=== PATIENT | male | born 1940 | race Caucasian/White ===

== ENCOUNTER 2020-08-27 13:44 | Inpatient (IN) | payer MEDICARE, OTHER, SELFPAY ==
[2020-08-27] VITALS (37 sets, daily range): BP systolic 98–170; BP diastolic 43–99; PULSE 24–70; RESP 16–20; TEMP 35.3–36.6; O2SAT 97–100; BMI 24.1
--- NOTE | 2020-08-27 | XR_ITS ---
EXAMINATION: XR CHEST CLINICAL INFORMATION: Pacemaker placement COMPARISON: Chest x-ray earlier today at 4:25 PM TECHNIQUE: Frontal view of the chest was obtained. FINDINGS: Stable cardiac silhouette. Interval insertion of dual lead pacemaker with leads in expected orientation. No pneumothorax is present. Endotracheal tube in stable position terminating approximately 6 cm above the level of the [place]. Enteric tube terminates below the level of the diaphragm and beyond the parameters of today's chest x-ray. The lungs remain adequately aerated. There is similar patchy opacity of the right lung base and blunting of the left costophrenic angle which likely represents a combination of scarring and possibly a small amount of pleural fluid. XR/XR chest 1V IMPRESSION: No pneumothorax status post pacemaker placement.
[2020-08-27] MEDS: LORazepam 2 MG/ML VIAL IM (14:00)
--- NOTE | 2020-08-27 14:02 | CT_ITS ---
EXAMINATION: CT HEAD WITHOUT CONTRAST CLINICAL INFORMATION: Altered mental status COMPARISON: None TECHNIQUE: Contiguous axial imaging was performed from the skull base to vertex without intravenous administration of contrast. Coronal and sagittal reformatted images are performed at the CT scanner This CT examination was performed using dose optimization techniques as appropriate, variously including the following: *Automated exposure control *Adjustment of mA and/or kV according to patient size (this includes techniques or standardized protocols for targeted exams where dose is matched to indication/reason for exam; i.e. extremities or head) *Use of iterative reconstruction technique DLP: 807.3 mGy-cm FINDINGS: There is no evidence of acute intracranial hemorrhage or territorial infarction. No abnormal mass effect or midline shift is seen. Swann to white matter differentiation is well preserved. No extra-axial fluid collections are identified. There is atrophy with prominence of the ventricles and the sulci and hypodensity of the periventricular white matter due to chronic small vessel ischemic disease. There are vascular calcifications of the internal carotid arteries bilaterally. The osseous structures and soft tissues are normal. The mastoid air cells and visualized portions of the paranasal sinuses are well aerated. CT/CT head/brain wo con IMPRESSION: No acute intracranial pathology.
--- NOTE | 2020-08-27 14:08 | CT_ITS ---
EXAMINATION: CT ANGIOGRAM OF THE CHEST WITH AND WITHOUT CONTRAST (CT PULMONARY ANGIOGRAM FOR PE) CLINICAL INFORMATION: Reason for Exam PE. Aortic dissection COMPARISON: None TECHNIQUE: Prior to contrast administration, noncontrast localization images were obtained. Subsequently, multidetector volumetric imaging was performed from the thoracic inlet to below the diaphragms following the administration of 65 mLOmnipaque 350 intravenous contrast. No contrast reaction reported Sagittal, coronal, and MIP oblique sagittal reformatted images were obtained on the CT workstation, uploaded to PACS, and reviewed. This CT examination was performed using dose optimization techniques as appropriate, variously including the following: *Automated exposure control *Adjustment of mA and/or kV according to patient size (this includes techniques or standardized protocols for targeted exams where dose is matched to indication/reason for exam; i.e. extremities or head) *Use of iterative reconstruction technique Total exam dose-length product 523.35+9.92+1.42+3.21 mGy-cm FINDINGS: QUALITY OF STUDY/CONTRAST BOLUS: Satisfactory. PULMONARY ARTERIES: No central or segmental pulmonary emboli. THORACIC AORTA: No aneurysm or dissection. Small volume of calcification of the aortic arch LUNG: There is marked emphysematous change of lungs.. There is no focal consolidation. Lung nodules: Right lun. Lobulated pleural-based mass in the right lower lobe measuring 2.3 cm axial image 33 series 18, coronal image 85 series 20. Left lun. Irregular spiculated nodule in the left upper lobe with pleural tag measuring 1.7 x 1.2 x 1.5 cm. There are small central airspace opacities in this lesion. PLEURA: No pleural effusion or pneumothorax. MEDIASTINUM: Normal heart size. No pericardial effusion. No hilar or mediastinal lymphadenopathy. No evidence of septal bowing or right heart strain. CHEST WALL/AXILLA: No axillary or internal mammary lymphadenopathy. OSSEOUS STRUCTURES: Multilevel degenerative spondylosis spine. Kyphosis of dorsal spine with dextroscoliosis. UPPER ABDOMEN: Unremarkable. The adrenal glands are normal. No reflux of contrast into the hepatic veins to suggest elevated right heart pressures. CT/CT angio chest PE protocol IMPRESSION: 1. No evidence of pulmonary embolism. 2. Severe emphysematous change of lungs. 3. There are 2 irregular lesions. There is a solid masslike lesion in the right lower lobe measuring 2.3 cm. There is an irregular pleural-based nodule in the left upper lobe measuring 1.7 cm. These are suspicious for neoplasm. Consider interventional radiology consult to evaluate for biopsy. VTE: negative. This critical result was discussed with Dr. Hogue on 08/27/2020, 3:33 PM and it was ascertained that the content and urgency of the report was understood at the time of direct communication.
[2020-08-27] MEDS: Ketamine HCl/NS 50 MG/5 ML SYRINGE 25 MG IVPUSH (14:10)
--- NOTE | 2020-08-27 14:10 | ED_ITS ---
HPI - Syncope General Chief Complaint: Arrhythmia/Palpitations <Chyna Hogue DO - Last Filed: 08/27/20 17:05> Stated Complaint: SYNCOPE <Chyna Hogue DO - Last Filed: 08/27/20 17:05> Time Seen by Provider: 08/27/20 13:56 <Chyna Hogue DO - Last Filed: 08/27/20 17:05> Source: family and EMS <Chyna Hogue DO - Last Filed: 08/27/20 17:05> Mode of arrival: EMS <Chyna Hogue DO - Last Filed: 08/27/20 17:05> Limitations: altered mental status <Chyna Hogue DO - Last Filed: 08/27/20 17:05> History of Present Illness MD complaint: loss of consciousness and collapsed <Chyna Hogue DO - Last Filed: 08/27/20 17:05> Onset (ago): minute(s) <Chyna Hogue DO - Last Filed: 08/27/20 17:05> Duration of episode: 5 <Chyna Hogue DO - Last Filed: 08/27/20 17:05> -: minutes(s) <Chyna Hogue DO - Last Filed: 08/27/20 17:05> Description of event: post-event confusion and other (witnessed LOC and syncopal event, found to be in complete heart block) <Chyna Hogue DO - Last Filed: 08/27/20 17:05> Prodromal symptoms: none <Chyna Hogue DO - Last Filed: 08/27/20 17:05> Witnessed: Yes - by Bystander <Chyna Hgoue DO - Last Filed: 08/27/20 17:05> Context: at rest <Chyna Hogue DO - Last Filed: 08/27/20 17:05> Injuries sustained associated with event: none <Chyna Hogue DO - Last Filed: 08/27/20 17:05> Current symptoms: other (agitated, confused, aggressive) <Chyna Hogue DO - Last Filed: 08/27/20 17:05> Treatments prior to arrival: IV fluids <Chyna Hogue DO - Last Filed: 08/27/20 17:05> Related Data Home Medications: Home Medications Medication Instructions Recorded Confirmed No Known Home Meds 08/27/20 08/27/20 <Chyna Hogue DO - Last Filed: 08/27/20 17:05> Allergies/Adverse Reactions: Allergies Allergy/AdvReac Type Severity Reaction Status Date / Time No Known Allergies Allergy Verified 08/27/20 13:56 <Chyna Hogue DO - Last Filed: 08/27/20 17:05> Review of Systems Review of Systems: ROS unable to be obtained due to altered mental status <Chyna Hogue DO - Last Filed: 08/27/20 17:05> [facility] Past Medical History Attestation statement: The following information was validated with the patient. <Chyna Hogue DO - Last Filed: 08/27/20 17:05> Medical History: Medical History No known problems <Chyna Hogue DO - Last Filed: 08/27/20 17:05> Social History Social History: Social History (Updated 08/27/20 @ 14:20 by Chyna Hogue DO) Alcohol intake: never Smoking Status: Never smoker Use of substances other than those prescribed or required for medical reasons: No Advance Directives: No Advance Directives Information Provided: Yes <Chyna Hogue DO - Last Filed: 08/27/20 17:05> Physical Exam Vital Signs: Vital Signs: Vital Signs Temp Pulse Resp BP Pulse Ox 08/27/20 16:54 95.5 F L 38 L 18 121/80 100 08/27/20 16:49 62 119/99 H 100 08/27/20 16:39 70 20 98/67 100 08/27/20 16:05 28 L 104/74 100 08/27/20 15:52 26 L 18 116/53 L 100 08/27/20 15:51 28 L 20 106/43 L 99 08/27/20 14:54 35 L 20 129/79 98 08/27/20 14:52 98 F 36 L 16 170/74 H 99 08/27/20 14:45 34 L 129/79 99 08/27/20 14:40 36 L 20 124/71 98 08/27/20 14:30 36 L 20 124/71 99 08/27/20 14:15 42 L 162/94 H 99 08/27/20 14:00 35 L 142/98 H 98 Body Mass Index 24.1 <Chyna Hogue DO - Last Filed: 08/27/20 17:05> Vital Signs: Vital Signs Temp Pulse Resp BP Pulse Ox 08/27/20 16:54 95.5 F L 38 L 18 121/80 100 08/27/20 16:49 62 119/99 H 100 08/27/20 16:39 70 20 98/67 100 08/27/20 16:05 28 L 104/74 100 08/27/20 15:52 26 L 18 116/53 L 100 08/27/20 15:51 28 L 20 106/43 L 99 08/27/20 14:54 35 L 20 129/79 98 08/27/20 14:52 98 F 36 L 16 170/74 H 99 08/27/20 14:45 34 L 129/79 99 08/27/20 14:40 36 L 20 124/71 98 08/27/20 14:30 36 L 20 124/71 99 08/27/20 14:15 42 L 162/94 H 99 08/27/20 14:00 35 L 142/98 H 98 Body Mass Index 24.1 <Lokesh Zamora MD - Last Filed: 08/27/20 14:30> Appearance: Somnolent Oriented X1. moderate acute distress Eyes: Pupils equal, round and reactive to light. ENT: Pharynx dry Neck: Normal inspection. Neck supple. CVS: bradycardic heart rate and rhythm. Pulses normal. Respiratory: No respiratory distress. Breath sounds normal. Abdomen: Soft and nontender. Skin: Skin cool and pale. diaphoretic Normal skin turgor. Extremities: No lower extremity edema. No calf ttp Neuro: Oriented X 1 moving all extremities equally <Chyna Hogue DO - Last Filed: 08/27/20 17:05> Course Course Course Narrative: Dr. 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 Nails at this time - will admit after OR Dr. Zamora - at bedside can hold off transvenous pacing, can go to OR, is now more stable BP steinberg <Chyna Hogue DO - Last Filed: 08/27/20 17:05> Procedures Intubation sedative: Ketamine <Chyna Hogue DO - Last Filed: 08/27/20 17:05> Mg Given: 100 <Chyna Hogue DO - Last Filed: 08/27/20 17:05> paralytic: Rocuronium <Chyna Hogue DO - Last Filed: 08/27/20 17:05> Mg Given: 50 <Chyna Hogue DO - Last Filed: 08/27/20 17:05> Laryngoscope: fiber optic video scope <Chyna Hogue DO - Last Filed: 08/27/20 17:05> ET Tube Size: 7.5 <Chyna Hogue DO - Last Filed: 08/27/20 17:05> ET Tube Uncuffed: Yes <Chyna Hogue DO - Last Filed: 08/27/20 17:05> Tube Secured Depth (cm): 22 <Chyna Hogue DO - Last Filed: 08/27/20 17:05> Tube Secured Location: teeth <Chyna Hogue DO - Last Filed: 08/27/20 17:05> Tube Placement Confirmation: visualized tube passing through cords, equal breath sounds bilaterally and confirmation by capnometry <Chyna Hogue DO - Last Filed: 08/27/20 17:05> Patient Tolerated Procedure: well <Chyna Hogue DO - Last Filed: 08/27/20 17:05> Intubation Complications: none <Chyna Hogue DO - Last Filed: 08/27/20 17:05> MDM - Syncope MDM Narrative Medical decision making narrative: 80 yo male who has not gone to the doctors had a syncopal event possible shaking unsure if syncope vs seizure lasted 5 minutes per spouse, will need labs, cardiologoy consult for heart block, CTA for dissection/head - very agitated will need medications for sedation in order to obtain tests, patient is full code per spouse <Chyna Hogue DO - Last Filed: 08/27/20 17:05> Lab Data Result diagrams: : 08/27/20 14:46 08/27/20 14:46 <Chyna Hogue DO - Last Filed: 08/27/20 17:05> Labs: Lab Results 08/27/20 08/27/20 08/27/20 Range/Units 14:45 14:45 14:46 WBC 10.4 (4.8-10.8) X10*3/uL RBC 4.78 (4.60-5.80) X10*6/uL Hgb 14.3 (14.0-18.0) g/dl Hct 45.8 (42-52) % MCV 95.8 (80-98) fL MCH 29.9 (27.0-33.0) pg MCHC 31.2 (31.0-36.0) g/dl RDW 14.3 (11.0-16.0) % Plt Count 136 L (160-400) X10*3/uL MPV TNP Immature Gran % (Auto) 0.3 (0.0-0.4) % Neut % (Auto) 71.4 (45-73) % Lymph % (Auto) 16.5 L (20-40) % [place] % (Auto) 7.7 (2-11) % Eos % (Auto) 3.3 (0-4) % Baso % (Auto) 0.8 (0-2) % Lymph # (Auto) 1.7 (1.2-4.9) X10*3/uL [place] # (Auto) 0.8 (0.1-1.2) X10*3/uL Eos # (Auto) 0.3 (0.0-0.4) X10*3/uL Baso # (Auto) 0.1 (0.0-0.2) X10*3/uL Abs Immat Gran (auto) 0.03 (0.00-0.03) X10*3/uL Absolute Neuts (auto) 7.4 (2.0-8.3) X10*3/uL Absolute Nucleated RBC 0.000 (0.0-0.012) X10*3/uL Nucleated RBC % (auto) 0.0 (0.0-0.2) /100WBC Smear Tech's Comments VERIFIED PT (10.8-13.0) SEC INR (0.9-1.1) APTT (24.1-38.0) SEC VBG pH (7.32-7.43) VBG pCO2 mmhg VBG Oxygen Liters/Min VBG pO2 mmhg VBG HCO3 mmol/L VBG O2 Saturation % VBG Base Excess mmol/L Sodium (135-145) mmol/L Potassium (3.3-5.1) mmol/l Chloride (96-108) mmol/L Carbon Dioxide (22-29) mmol/L Anion Gap (12-20) BUN (9-16) mg/dL Creatinine (0.5-1.4) mg/dL Estim Creat Clear Calc Estimated GFR Random Glucose (60-115) mg/dL Lactic Acid (0.5-2.0) mmol/L Calcium 9.2 (8.4-10.2) mg/dL Magnesium 2.3 (1.6-2.6) mg/dL Total Bilirubin (0.0-1.0) mg/dL AST (5-37) U/L ALT (0-40) U/L Alkaline Phosphatase (39-117) U/L Ammonia (13-55) umol/L Total Creatine Kinase 64 (38-174) U/L Troponin I High Sens (<3.5-35.0) ng/L B-Natriuretic Peptide (<100) pg/mL Total Protein (6.5-8.0) g/dL Albumin (3.5-5.0) g/dL Urine Color Urine Appearance Urine pH (5.0-8.0) Ur Specific [place] (1.005-1.025) Urine Protein (NEG-TRACE) MG/DL Urine Glucose (UA) (NEG) MG/DL Urine Ketones (NEG) MG/DL Urine Blood (NEG) Urine Nitrite (NEG) Ur Leukocyte Esterase (NEG) Urine RBC (0) /HPF Urine WBC (0-4) /HPF Ur Squamous Epith Cells /LPF Urine Bacteria /LPF Urine Opiates Screen (Not Detect) Ur Barbiturates Screen (Not Detect) Ur Phencyclidine Scrn (Not Detect) Ur Amphetamines Screen (Not Detect) U Benzodiazepines Scrn (Not Detect) Urine Cocaine Screen (Not Detect) U Marijuana (THC) Screen (Not Detect) Ethyl Alcohol < 10 mg/dL Coronavirus (PCR) (Negative) 08/27/20 08/27/20 08/27/20 Range/Units 14:46 14:46 14:46 WBC (4.8-10.8) X10*3/uL RBC (4.60-5.80) X10*6/uL Hgb (14.0-18.0) g/dl Hct (42-52) % MCV (80-98) fL MCH (27.0-33.0) pg MCHC (31.0-36.0) g/dl RDW (11.0-16.0) % Plt Count (160-400) X10*3/uL MPV Immature Gran % (Auto) (0.0-0.4) % Neut % (Auto) (45-73) % Lymph % (Auto) (20-40) % [place] % (Auto) (2-11) % Eos % (Auto) (0-4) % Baso % (Auto) (0-2) % Lymph # (Auto) (1.2-4.9) X10*3/uL [place] # (Auto) (0.1-1.2) X10*3/uL Eos # (Auto) (0.0-0.4) X10*3/uL Baso # (Auto) (0.0-0.2) X10*3/uL Abs Immat Gran (auto) (0.00-0.03) X10*3/uL Absolute Neuts (auto) (2.0-8.3) X10*3/uL Absolute Nucleated RBC (0.0-0.012) X10*3/uL Nucleated RBC % (auto) (0.0-0.2) /100WBC Smear Tech's Comments PT 12.3 (10.8-13.0) SEC INR 1.0 (0.9-1.1) APTT 32.5 (24.1-38.0) SEC VBG pH (7.32-7.43) VBG pCO2 mmhg VBG Oxygen Liters/Min VBG pO2 mmhg VBG HCO3 mmol/L VBG O2 Saturation % VBG Base Excess mmol/L Sodium 142 (135-145) mmol/L Potassium 4.0 (3.3-5.1) mmol/l Chloride 104 (96-108) mmol/L Carbon Dioxide 23 (22-29) mmol/L Anion Gap 19 (12-20) BUN 13 (9-16) mg/dL Creatinine 0.99 (0.5-1.4) mg/dL Estim Creat Clear Calc 68.3 Estimated GFR > 60 Random Glucose 138 H (60-115) mg/dL Lactic Acid 5.2 H* (0.5-2.0) mmol/L Calcium 9.1 (8.4-10.2) mg/dL Magnesium (1.6-2.6) mg/dL Total Bilirubin 0.9 (0.0-1.0) mg/dL AST 13 (5-37) U/L ALT 7 (0-40) U/L Alkaline Phosphatase 76 (39-117) U/L Ammonia (13-55) umol/L Total Creatine Kinase (38-174) U/L Troponin I High Sens (<3.5-35.0) ng/L B-Natriuretic Peptide (<100) pg/mL Total Protein 7.0 (6.5-8.0) g/dL Albumin 4.5 (3.5-5.0) g/dL Urine Color Urine Appearance Urine pH (5.0-8.0) Ur Specific [place] (1.005-1.025) Urine Protein (NEG-TRACE) MG/DL Urine Glucose (UA) (NEG) MG/DL Urine Ketones (NEG) MG/DL Urine Blood (NEG) Urine Nitrite (NEG) Ur Leukocyte Esterase (NEG) Urine RBC (0) /HPF Urine WBC (0-4) /HPF Ur Squamous Epith Cells /LPF Urine Bacteria /LPF Urine Opiates Screen (Not Detect) Ur Barbiturates Screen (Not Detect) Ur Phencyclidine Scrn (Not Detect) Ur Amphetamines Screen (Not Detect) U Benzodiazepines Scrn (Not Detect) Urine Cocaine Screen (Not Detect) U Marijuana (THC) Screen (Not Detect) Ethyl Alcohol mg/dL Coronavirus (PCR) (Negative) 08/27/20 08/27/20 08/27/20 Range/Units 15:03 15:03 15:04 WBC (4.8-10.8) X10*3/uL RBC (4.60-5.80) X10*6/uL Hgb (14.0-18.0) g/dl Hct (42-52) % MCV (80-98) fL MCH (27.0-33.0) pg MCHC (31.0-36.0) g/dl RDW (11.0-16.0) % Plt Count (160-400) X10*3/uL MPV Immature Gran % (Auto) (0.0-0.4) % Neut % (Auto) (45-73) % Lymph % (Auto) (20-40) % [place] % (Auto) (2-11) % Eos % (Auto) (0-4) % Baso % (Auto) (0-2) % Lymph # (Auto) (1.2-4.9) X10*3/uL [place] # (Auto) (0.1-1.2) X10*3/uL Eos # (Auto) (0.0-0.4) X10*3/uL Baso # (Auto) (0.0-0.2) X10*3/uL Abs Immat Gran (auto) (0.00-0.03) X10*3/uL Absolute Neuts (auto) (2.0-8.3) X10*3/uL Absolute Nucleated RBC (0.0-0.012) X10*3/uL Nucleated RBC % (auto) (0.0-0.2) /100WBC Smear Tech's Comments PT (10.8-13.0) SEC INR (0.9-1.1) APTT (24.1-38.0) SEC VBG pH (7.32-7.43) VBG pCO2 mmhg VBG Oxygen Liters/Min VBG pO2 mmhg VBG HCO3 mmol/L VBG O2 Saturation % VBG Base Excess mmol/L Sodium (135-145) mmol/L Potassium (3.3-5.1) mmol/l Chloride (96-108) mmol/L Carbon Dioxide (22-29) mmol/L Anion Gap (12-20) BUN (9-16) mg/dL Creatinine (0.5-1.4) mg/dL Estim Creat Clear Calc Estimated GFR Random Glucose (60-115) mg/dL Lactic Acid (0.5-2.0) mmol/L Calcium (8.4-10.2) mg/dL Magnesium (1.6-2.6) mg/dL Total Bilirubin (0.0-1.0) mg/dL AST (5-37) U/L ALT (0-40) U/L Alkaline Phosphatase (39-117) U/L Ammonia 35 (13-55) umol/L Total Creatine Kinase (38-174) U/L Troponin I High Sens 29.3 (<3.5-35.0) ng/L B-Natriuretic Peptide 244 H (<100) pg/mL Total Protein (6.5-8.0) g/dL Albumin (3.5-5.0) g/dL Urine Color Urine Appearance Urine pH (5.0-8.0) Ur Specific [place] (1.005-1.025) Urine Protein (NEG-TRACE) MG/DL Urine Glucose (UA) (NEG) MG/DL Urine Ketones (NEG) MG/DL Urine Blood (NEG) Urine Nitrite (NEG) Ur Leukocyte Esterase (NEG) Urine RBC (0) /HPF Urine WBC (0-4) /HPF Ur Squamous Epith Cells /LPF Urine Bacteria /LPF Urine Opiates Screen (Not Detect) Ur Barbiturates Screen (Not Detect) Ur Phencyclidine Scrn (Not Detect) Ur Amphetamines Screen (Not Detect) U Benzodiazepines Scrn (Not Detect) Urine Cocaine Screen (Not Detect) U Marijuana (THC) Screen (Not Detect) Ethyl Alcohol mg/dL Coronavirus (PCR) (Negative) 08/27/20 08/27/20 08/27/20 Range/Units 15:14 15:14 15:14 WBC (4.8-10.8) X10*3/uL RBC (4.60-5.80) X10*6/uL Hgb (14.0-18.0) g/dl Hct (42-52) % MCV (80-98) fL MCH (27.0-33.0) pg MCHC (31.0-36.0) g/dl RDW (11.0-16.0) % Plt Count (160-400) X10*3/uL MPV Immature Gran % (Auto) (0.0-0.4) % Neut % (Auto) (45-73) % Lymph % (Auto) (20-40) % [place] % (Auto) (2-11) % Eos % (Auto) (0-4) % Baso % (Auto) (0-2) % Lymph # (Auto) (1.2-4.9) X10*3/uL [place] # (Auto) (0.1-1.2) X10*3/uL Eos # (Auto) (0.0-0.4) X10*3/uL Baso # (Auto) (0.0-0.2) X10*3/uL Abs Immat Gran (auto) (0.00-0.03) X10*3/uL Absolute Neuts (auto) (2.0-8.3) X10*3/uL Absolute Nucleated RBC (0.0-0.012) X10*3/uL Nucleated RBC % (auto) (0.0-0.2) /100WBC Smear Tech's Comments PT (10.8-13.0) SEC INR (0.9-1.1) APTT (24.1-38.0) SEC VBG pH (7.32-7.43) VBG pCO2 mmhg VBG Oxygen Liters/Min VBG pO2 mmhg VBG HCO3 mmol/L VBG O2 Saturation % VBG Base Excess mmol/L Sodium (135-145) mmol/L Potassium (3.3-5.1) mmol/l Chloride (96-108) mmol/L Carbon Dioxide (22-29) mmol/L Anion Gap (12-20) BUN (9-16) mg/dL Creatinine (0.5-1.4) mg/dL Estim Creat Clear Calc Estimated GFR Random Glucose (60-115) mg/dL Lactic Acid (0.5-2.0) mmol/L Calcium (8.4-10.2) mg/dL Magnesium (1.6-2.6) mg/dL Total Bilirubin (0.0-1.0) mg/dL AST (5-37) U/L ALT (0-40) U/L Alkaline Phosphatase (39-117) U/L Ammonia (13-55) umol/L Total Creatine Kinase (38-174) U/L Troponin I High Sens (<3.5-35.0) ng/L B-Natriuretic Peptide (<100) pg/mL Total Protein (6.5-8.0) g/dL Albumin (3.5-5.0) g/dL Urine Color YELLOW Urine Appearance CLEAR Urine pH 6.0 (5.0-8.0) Ur Specific [place] 1.020 (1.005-1.025) Urine Protein NEG (NEG-TRACE) MG/DL Urine Glucose (UA) NEG (NEG) MG/DL Urine Ketones NEG (NEG) MG/DL Urine Blood 3+ H (NEG) Urine Nitrite NEG (NEG) Ur Leukocyte Esterase NEG (NEG) Urine RBC 30-49 H (0) /HPF Urine WBC 0 (0-4) /HPF Ur Squamous Epith Cells NONE /LPF Urine Bacteria NONE /LPF Urine Opiates Screen Not Detected (Not Detect) Ur Barbiturates Screen Not Detected (Not Detect) Ur Phencyclidine Scrn Not Detected (Not Detect) Ur Amphetamines Screen Not Detected (Not Detect) U Benzodiazepines Scrn Not Detected (Not Detect) Urine Cocaine Screen Not Detected (Not Detect) U Marijuana (THC) Screen Not Detected (Not Detect) Ethyl Alcohol mg/dL Coronavirus (PCR) NEGATIVE (Negative) 08/27/20 Range/Units 15:26 WBC (4.8-10.8) X10*3/uL RBC (4.60-5.80) X10*6/uL Hgb (14.0-18.0) g/dl Hct (42-52) % MCV (80-98) fL MCH (27.0-33.0) pg MCHC (31.0-36.0) g/dl RDW (11.0-16.0) % Plt Count (160-400) X10*3/uL MPV Immature Gran % (Auto) (0.0-0.4) % Neut % (Auto) (45-73) % Lymph % (Auto) (20-40) % [place] % (Auto) (2-11) % Eos % (Auto) (0-4) % Baso % (Auto) (0-2) % Lymph # (Auto) (1.2-4.9) X10*3/uL [place] # (Auto) (0.1-1.2) X10*3/uL Eos # (Auto) (0.0-0.4) X10*3/uL Baso # (Auto) (0.0-0.2) X10*3/uL Abs Immat Gran (auto) (0.00-0.03) X10*3/uL Absolute Neuts (auto) (2.0-8.3) X10*3/uL Absolute Nucleated RBC (0.0-0.012) X10*3/uL Nucleated RBC % (auto) (0.0-0.2) /100WBC Smear Tech's Comments PT (10.8-13.0) SEC INR (0.9-1.1) APTT (24.1-38.0) SEC VBG pH 7.35 (7.32-7.43) VBG pCO2 44 mmhg VBG Oxygen Liters/Min TNP VBG pO2 91 mmhg VBG HCO3 24 mmol/L VBG O2 Saturation 96.6 % VBG Base Excess -2.2 mmol/L Sodium (135-145) mmol/L Potassium (3.3-5.1) mmol/l Chloride (96-108) mmol/L Carbon Dioxide (22-29) mmol/L Anion Gap (12-20) BUN (9-16) mg/dL Creatinine (0.5-1.4) mg/dL Estim Creat Clear Calc Estimated GFR Random Glucose (60-115) mg/dL Lactic Acid (0.5-2.0) mmol/L Calcium (8.4-10.2) mg/dL Magnesium (1.6-2.6) mg/dL Total Bilirubin (0.0-1.0) mg/dL AST (5-37) U/L ALT (0-40) U/L Alkaline Phosphatase (39-117) U/L Ammonia (13-55) umol/L Total Creatine Kinase (38-174) U/L Troponin I High Sens (<3.5-35.0) ng/L B-Natriuretic Peptide (<100) pg/mL Total Protein (6.5-8.0) g/dL Albumin (3.5-5.0) g/dL Urine Color Urine Appearance Urine pH (5.0-8.0) Ur Specific [place] (1.005-1.025) Urine Protein (NEG-TRACE) MG/DL Urine Glucose (UA) (NEG) MG/DL Urine Ketones (NEG) MG/DL Urine Blood (NEG) Urine Nitrite (NEG) Ur Leukocyte Esterase (NEG) Urine RBC (0) /HPF Urine WBC (0-4) /HPF Ur Squamous Epith Cells /LPF Urine Bacteria /LPF Urine Opiates Screen (Not Detect) Ur Barbiturates Screen (Not Detect) Ur Phencyclidine Scrn (Not Detect) Ur Amphetamines Screen (Not Detect) U Benzodiazepines Scrn (Not Detect) Urine Cocaine Screen (Not Detect) U Marijuana (THC) Screen (Not Detect) Ethyl Alcohol mg/dL Coronavirus (PCR) (Negative) <Chyna Hogue, DO - Last Filed: 08/27/20 17:05> Lab Results 08/27/20 08/27/20 08/27/20 Range/Units 14:45 14:45 14:46 WBC 10.4 (4.8-10.8) X10*3/uL RBC 4.78 (4.60-5.80) X10*6/uL Hgb 14.3 (14.0-18.0) g/dl Hct 45.8 (42-52) % MCV 95.8 (80-98) fL MCH 29.9 (27.0-33.0) pg MCHC 31.2 (31.0-36.0) g/dl RDW 14.3 (11.0-16.0) % Plt Count 136 L (160-400) X10*3/uL MPV TNP Immature Gran % (Auto) 0.3 (0.0-0.4) % Neut % (Auto) 71.4 (45-73) % Lymph % (Auto) 16.5 L (20-40) % [place] % (Auto) 7.7 (2-11) % Eos % (Auto) 3.3 (0-4) % Baso % (Auto) 0.8 (0-2) % Lymph # (Auto) 1.7 (1.2-4.9) X10*3/uL [place] # (Auto) 0.8 (0.1-1.2) X10*3/uL Eos # (Auto) 0.3 (0.0-0.4) X10*3/uL Baso # (Auto) 0.1 (0.0-0.2) X10*3/uL Abs Immat Gran (auto) 0.03 (0.00-0.03) X10*3/uL Absolute Neuts (auto) 7.4 (2.0-8.3) X10*3/uL Absolute Nucleated RBC 0.000 (0.0-0.012) X10*3/uL Nucleated RBC % (auto) 0.0 (0.0-0.2) /100WBC Smear Tech's Comments VERIFIED PT (10.8-13.0) SEC INR (0.9-1.1) APTT (24.1-38.0) SEC VBG pH (7.32-7.43) VBG pCO2 mmhg VBG Oxygen Liters/Min VBG pO2 mmhg VBG HCO3 mmol/L VBG O2 Saturation % VBG Base Excess mmol/L Sodium (135-145) mmol/L Potassium (3.3-5.1) mmol/l Chloride (96-108) mmol/L Carbon Dioxide (22-29) mmol/L Anion Gap (12-20) BUN (9-16) mg/dL Creatinine (0.5-1.4) mg/dL Estim Creat Clear Calc Estimated GFR Random Glucose (60-115) mg/dL Lactic Acid (0.5-2.0) mmol/L Calcium 9.2 (8.4-10.2) mg/dL Magnesium 2.3 (1.6-2.6) mg/dL Total Bilirubin (0.0-1.0) mg/dL AST (5-37) U/L ALT (0-40) U/L Alkaline Phosphatase (39-117) U/L Ammonia (13-55) umol/L Total Creatine Kinase 64 (38-174) U/L Troponin I High Sens (<3.5-35.0) ng/L B-Natriuretic Peptide (<100) pg/mL Total Protein (6.5-8.0) g/dL Albumin (3.5-5.0) g/dL Urine Color Urine Appearance Urine pH (5.0-8.0) Ur Specific [place] (1.005-1.025) Urine Protein (NEG-TRACE) MG/DL Urine Glucose (UA) (NEG) MG/DL Urine Ketones (NEG) MG/DL Urine Blood (NEG) Urine Nitrite (NEG) Ur Leukocyte Esterase (NEG) Urine RBC (0) /HPF Urine WBC (0-4) /HPF Ur Squamous Epith Cells /LPF Urine Bacteria /LPF Urine Opiates Screen (Not Detect) Ur Barbiturates Screen (Not Detect) Ur Phencyclidine Scrn (Not Detect) Ur Amphetamines Screen (Not Detect) U Benzodiazepines Scrn (Not Detect) Urine Cocaine Screen (Not Detect) U Marijuana (THC) Screen (Not Detect) Ethyl Alcohol < 10 mg/dL Coronavirus (PCR) (Negative) 08/27/20 08/27/20 08/27/20 Range/Units 14:46 14:46 14:46 WBC (4.8-10.8) X10*3/uL RBC (4.60-5.80) X10*6/uL Hgb (14.0-18.0) g/dl Hct (42-52) % MCV (80-98) fL MCH (27.0-33.0) pg MCHC (31.0-36.0) g/dl RDW (11.0-16.0) % Plt Count (160-400) X10*3/uL MPV Immature Gran % (Auto) (0.0-0.4) % Neut % (Auto) (45-73) % Lymph % (Auto) (20-40) % [place] % (Auto) (2-11) % Eos % (Auto) (0-4) % Baso % (Auto) (0-2) % Lymph # (Auto) (1.2-4.9) X10*3/uL [place] # (Auto) (0.1-1.2) X10*3/uL Eos # (Auto) (0.0-0.4) X10*3/uL Baso # (Auto) (0.0-0.2) X10*3/uL Abs Immat Gran (auto) (0.00-0.03) X10*3/uL Absolute Neuts (auto) (2.0-8.3) X10*3/uL Absolute Nucleated RBC (0.0-0.012) X10*3/uL Nucleated RBC % (auto) (0.0-0.2) /100WBC Smear Tech's Comments PT 12.3 (10.8-13.0) SEC INR 1.0 (0.9-1.1) APTT 32.5 (24.1-38.0) SEC VBG pH (7.32-7.43) VBG pCO2 mmhg VBG Oxygen Liters/Min VBG pO2 mmhg VBG HCO3 mmol/L VBG O2 Saturation % VBG Base Excess mmol/L Sodium 142 (135-145) mmol/L Potassium 4.0 (3.3-5.1) mmol/l Chloride 104 (96-108) mmol/L Carbon Dioxide 23 (22-29) mmol/L Anion Gap 19 (12-20) BUN 13 (9-16) mg/dL Creatinine 0.99 (0.5-1.4) mg/dL Estim Creat Clear Calc 68.3 Estimated GFR > 60 Random Glucose 138 H (60-115) mg/dL Lactic Acid 5.2 H* (0.5-2.0) mmol/L Calcium 9.1 (8.4-10.2) mg/dL Magnesium (1.6-2.6) mg/dL Total Bilirubin 0.9 (0.0-1.0) mg/dL AST 13 (5-37) U/L ALT 7 (0-40) U/L Alkaline Phosphatase 76 (39-117) U/L Ammonia (13-55) umol/L Total Creatine Kinase (38-174) U/L Troponin I High Sens (<3.5-35.0) ng/L B-Natriuretic Peptide (<100) pg/mL Total Protein 7.0 (6.5-8.0) g/dL Albumin 4.5 (3.5-5.0) g/dL Urine Color Urine Appearance Urine pH (5.0-8.0) Ur Specific [place] (1.005-1.025) Urine Protein (NEG-TRACE) MG/DL Urine Glucose (UA) (NEG) MG/DL Urine Ketones (NEG) MG/DL Urine Blood (NEG) Urine Nitrite (NEG) Ur Leukocyte Esterase (NEG) Urine RBC (0) /HPF Urine WBC (0-4) /HPF Ur Squamous Epith Cells /LPF Urine Bacteria /LPF Urine Opiates Screen (Not Detect) Ur Barbiturates Screen (Not Detect) Ur Phencyclidine Scrn (Not Detect) Ur Amphetamines Screen (Not Detect) U Benzodiazepines Scrn (Not Detect) Urine Cocaine Screen (Not Detect) U Marijuana (THC) Screen (Not Detect) Ethyl Alcohol mg/dL Coronavirus (PCR) (Negative) 08/27/20 08/27/20 08/27/20 Range/Units 15:03 15:03 15:04 WBC (4.8-10.8) X10*3/uL RBC (4.60-5.80) X10*6/uL Hgb (14.0-18.0) g/dl Hct (42-52) % MCV (80-98) fL MCH (27.0-33.0) pg MCHC (31.0-36.0) g/dl RDW (11.0-16.0) % Plt Count (160-400) X10*3/uL MPV Immature Gran % (Auto) (0.0-0.4) % Neut % (Auto) (45-73) % Lymph % (Auto) (20-40) % [place] % (Auto) (2-11) % Eos % (Auto) (0-4) % Baso % (Auto) (0-2) % Lymph # (Auto) (1.2-4.9) X10*3/uL [place] # (Auto) (0.1-1.2) X10*3/uL Eos # (Auto) (0.0-0.4) X10*3/uL Baso # (Auto) (0.0-0.2) X10*3/uL Abs Immat Gran (auto) (0.00-0.03) X10*3/uL Absolute Neuts (auto) (2.0-8.3) X10*3/uL Absolute Nucleated RBC (0.0-0.012) X10*3/uL Nucleated RBC % (auto) (0.0-0.2) /100WBC Smear Tech's Comments PT (10.8-13.0) SEC INR (0.9-1.1) APTT (24.1-38.0) SEC VBG pH (7.32-7.43) VBG pCO2 mmhg VBG Oxygen Liters/Min VBG pO2 mmhg VBG HCO3 mmol/L VBG O2 Saturation % VBG Base Excess mmol/L Sodium (135-145) mmol/L Potassium (3.3-5.1) mmol/l Chloride (96-108) mmol/L Carbon Dioxide (22-29) mmol/L Anion Gap (12-20) BUN (9-16) mg/dL Creatinine (0.5-1.4) mg/dL Estim Creat Clear Calc Estimated GFR Random Glucose (60-115) mg/dL Lactic Acid (0.5-2.0) mmol/L Calcium (8.4-10.2) mg/dL Magnesium (1.6-2.6) mg/dL Total Bilirubin (0.0-1.0) mg/dL AST (5-37) U/L ALT (0-40) U/L Alkaline Phosphatase (39-117) U/L Ammonia 35 (13-55) umol/L Total Creatine Kinase (38-174) U/L Troponin I High Sens 29.3 (<3.5-35.0) ng/L B-Natriuretic Peptide 244 H (<100) pg/mL Total Protein (6.5-8.0) g/dL Albumin (3.5-5.0) g/dL Urine Color Urine Appearance Urine pH (5.0-8.0) Ur Specific [place] (1.005-1.025) Urine Protein (NEG-TRACE) MG/DL Urine Glucose (UA) (NEG) MG/DL Urine Ketones (NEG) MG/DL Urine Blood (NEG) Urine Nitrite (NEG) Ur Leukocyte Esterase (NEG) Urine RBC (0) /HPF Urine WBC (0-4) /HPF Ur Squamous Epith Cells /LPF Urine Bacteria /LPF Urine Opiates Screen (Not Detect) Ur Barbiturates Screen (Not Detect) Ur Phencyclidine Scrn (Not Detect) Ur Amphetamines Screen (Not Detect) U Benzodiazepines Scrn (Not Detect) Urine Cocaine Screen (Not Detect) U Marijuana (THC) Screen (Not Detect) Ethyl Alcohol mg/dL Coronavirus (PCR) (Negative) 08/27/20 08/27/20 08/27/20 Range/Units 15:14 15:14 15:14 WBC (4.8-10.8) X10*3/uL RBC (4.60-5.80) X10*6/uL Hgb (14.0-18.0) g/dl Hct (42-52) % MCV (80-98) fL MCH (27.0-33.0) pg MCHC (31.0-36.0) g/dl RDW (11.0-16.0) % Plt Count (160-400) X10*3/uL MPV Immature Gran % (Auto) (0.0-0.4) % Neut % (Auto) (45-73) % Lymph % (Auto) (20-40) % [place] % (Auto) (2-11) % Eos % (Auto) (0-4) % Baso % (Auto) (0-2) % Lymph # (Auto) (1.2-4.9) X10*3/uL [place] # (Auto) (0.1-1.2) X10*3/uL Eos # (Auto) (0.0-0.4) X10*3/uL Baso # (Auto) (0.0-0.2) X10*3/uL Abs Immat Gran (auto) (0.00-0.03) X10*3/uL Absolute Neuts (auto) (2.0-8.3) X10*3/uL Absolute Nucleated RBC (0.0-0.012) X10*3/uL Nucleated RBC % (auto) (0.0-0.2) /100WBC Smear Tech's Comments PT (10.8-13.0) SEC INR (0.9-1.1) APTT (24.1-38.0) SEC VBG pH (7.32-7.43) VBG pCO2 mmhg VBG Oxygen Liters/Min VBG pO2 mmhg VBG HCO3 mmol/L VBG O2 Saturation % VBG Base Excess mmol/L Sodium (135-145) mmol/L Potassium (3.3-5.1) mmol/l Chloride (96-108) mmol/L Carbon Dioxide (22-29) mmol/L Anion Gap (12-20) BUN (9-16) mg/dL Creatinine (0.5-1.4) mg/dL Estim Creat Clear Calc Estimated GFR Random Glucose (60-115) mg/dL Lactic Acid (0.5-2.0) mmol/L Calcium (8.4-10.2) mg/dL Magnesium (1.6-2.6) mg/dL Total Bilirubin (0.0-1.0) mg/dL AST (5-37) U/L ALT (0-40) U/L Alkaline Phosphatase (39-117) U/L Ammonia (13-55) umol/L Total Creatine Kinase (38-174) U/L Troponin I High Sens (<3.5-35.0) ng/L B-Natriuretic Peptide (<100) pg/mL Total Protein (6.5-8.0) g/dL Albumin (3.5-5.0) g/dL Urine Color YELLOW Urine Appearance CLEAR Urine pH 6.0 (5.0-8.0) Ur Specific [place] 1.020 (1.005-1.025) Urine Protein NEG (NEG-TRACE) MG/DL Urine Glucose (UA) NEG (NEG) MG/DL Urine Ketones NEG (NEG) MG/DL Urine Blood 3+ H (NEG) Urine Nitrite NEG (NEG) Ur Leukocyte Esterase NEG (NEG) Urine RBC 30-49 H (0) /HPF Urine WBC 0 (0-4) /HPF Ur Squamous Epith Cells NONE /LPF Urine Bacteria NONE /LPF Urine Opiates Screen Not Detected (Not Detect) Ur Barbiturates Screen Not Detected (Not Detect) Ur Phencyclidine Scrn Not Detected (Not Detect) Ur Amphetamines Screen Not Detected (Not Detect) U Benzodiazepines Scrn Not Detected (Not Detect) Urine Cocaine Screen Not Detected (Not Detect) U Marijuana (THC) Screen Not Detected (Not Detect) Ethyl Alcohol mg/dL Coronavirus (PCR) NEGATIVE (Negative) 08/27/20 Range/Units 15:26 WBC (4.8-10.8) X10*3/uL RBC (4.60-5.80) X10*6/uL Hgb (14.0-18.0) g/dl Hct (42-52) % MCV (80-98) fL MCH (27.0-33.0) pg MCHC (31.0-36.0) g/dl RDW (11.0-16.0) % Plt Count (160-400) X10*3/uL MPV Immature Gran % (Auto) (0.0-0.4) % Neut % (Auto) (45-73) % Lymph % (Auto) (20-40) % [place] % (Auto) (2-11) % Eos % (Auto) (0-4) % Baso % (Auto) (0-2) % Lymph # (Auto) (1.2-4.9) X10*3/uL [place] # (Auto) (0.1-1.2) X10*3/uL Eos # (Auto) (0.0-0.4) X10*3/uL Baso # (Auto) (0.0-0.2) X10*3/uL Abs Immat Gran (auto) (0.00-0.03) X10*3/uL Absolute Neuts (auto) (2.0-8.3) X10*3/uL Absolute Nucleated RBC (0.0-0.012) X10*3/uL Nucleated RBC % (auto) (0.0-0.2) /100WBC Smear Tech's Comments PT (10.8-13.0) SEC INR (0.9-1.1) APTT (24.1-38.0) SEC VBG pH 7.35 (7.32-7.43) VBG pCO2 44 mmhg VBG Oxygen Liters/Min TNP VBG pO2 91 mmhg VBG HCO3 24 mmol/L VBG O2 Saturation 96.6 % VBG Base Excess -2.2 mmol/L Sodium (135-145) mmol/L Potassium (3.3-5.1) mmol/l Chloride (96-108) mmol/L Carbon Dioxide (22-29) mmol/L Anion Gap (12-20) BUN (9-16) mg/dL Creatinine (0.5-1.4) mg/dL Estim Creat Clear Calc Estimated GFR Random Glucose (60-115) mg/dL Lactic Acid (0.5-2.0) mmol/L Calcium (8.4-10.2) mg/dL Magnesium (1.6-2.6) mg/dL Total Bilirubin (0.0-1.0) mg/dL AST (5-37) U/L ALT (0-40) U/L Alkaline Phosphatase (39-117) U/L Ammonia (13-55) umol/L Total Creatine Kinase (38-174) U/L Troponin I High Sens (<3.5-35.0) ng/L B-Natriuretic Peptide (<100) pg/mL Total Protein (6.5-8.0) g/dL Albumin (3.5-5.0) g/dL Urine Color Urine Appearance Urine pH (5.0-8.0) Ur Specific [place] (1.005-1.025) Urine Protein (NEG-TRACE) MG/DL Urine Glucose (UA) (NEG) MG/DL Urine Ketones (NEG) MG/DL Urine Blood (NEG) Urine Nitrite (NEG) Ur Leukocyte Esterase (NEG) Urine RBC (0) /HPF Urine WBC (0-4) /HPF Ur Squamous Epith Cells /LPF Urine Bacteria /LPF Urine Opiates Screen (Not Detect) Ur Barbiturates Screen (Not Detect) Ur Phencyclidine Scrn (Not Detect) Ur Amphetamines Screen (Not Detect) U Benzodiazepines Scrn (Not Detect) Urine Cocaine Screen (Not Detect) U Marijuana (THC) Screen (Not Detect) Ethyl Alcohol mg/dL Coronavirus (PCR) (Negative) <Lokesh Zamora MD - Last Filed: 08/27/20 14:30> ECG Data Attestation: I personally reviewed and interpreted this ECG as follows: <Chyna Hogue DO - Last Filed: 08/27/20 17:05> ECG interpretation date: 08/27/20 <Chyna Hogue DO - Last Filed: 08/27/20 17:05> ECG interpretation time: 14:44 <Chyna Hogue DO - Last Filed: 08/27/20 17:05> Interpretation: Rate: 42 Rhythm: complete heart block [place]: left Normal P waves RBBB ST T wave : no ARMANDO, nonspefici qTC: normal prior studies: none available The study has been interpreted contemporaneously by me. . <Chyna Hogue DO - Last Filed: 08/27/20 17:05> Critical Care Time Critical Care Time Critical Care Time: Yes <Chyna Hogue DO - Last Filed: 08/27/20 17:05> Total Critical Care Time: 90 <Chyna Hogue DO - Last Filed: 08/27/20 17:05> Attestation: bedside, cutaneous pacing, medical consult x 3, atropine I attest to this time spent taking care of the patient <Chyna Hogue DO - Last Filed: 08/27/20 17:05> Discharge Plan Discharge Clinical Impression: Complete heart block, Acute alteration in mental status Syncope Qualifiers: Syncope type: unspecified Qualified Code(s): R55 - Syncope and collapse <Chyna Hogue DO - Last Filed: 08/27/20 17:05> Patient Disposition: Admitted As Inpatient <Chyna Hogue DO - Last Filed: 08/27/20 17:05>
[2020-08-27] MEDS: LORazepam 2 MG/ML VIAL 1 MG IVPUSH (14:20)
--- NOTE | 2020-08-27 14:21 | PM.CNCAR ---
History of Present Illness History of Present Illness Date of Consult: August 27, 2020 Requesting physician: Chyna Hogue Chief complaint: SYNCOPE, CHB Narrative: 80-year-old gentleman who is brought in with syncope. No clear history is available right now. It appears he was going with his to vote and passed out. EMS found him in complete heart block. 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 Old EKGs are not available. He is quite delirious right now and is quite confused and agitated. As per EMS he was quite awake and oriented before. Not hypotensive in the ER. No history otherwise available. He is denying chest discomfort. history is quite limited though. Review of Systems Review of Systems: Yes Unobtainable due to mental status PMFSH Past Medical History Medical History No known problems Social History Social History (Updated 08/27/20 @ 14:20 by Chyna Hogue DO) Alcohol intake: never Smoking Status: Never smoker Use of substances other than those prescribed or required for medical reasons: No Advance Directives: No Advance Directives Information Provided: Yes Meds Allergies Allergy/AdvReac Type Severity Reaction Status Date / Time No Known Allergies Allergy Verified 08/27/20 13:56 Physical Exam Vital Signs: Vital Signs: GENERAL APPEARANCE: Agitated, clammy. HEAD: normocephalic, atraumatic. SKIN: no suspicious lesions, warm and dry. HEART: no murmurs, Bradycardia. LUNGS: clear to auscultation bilaterally. ABDOMEN: Soft. EXTREMITIES: no clubbing, cyanosis, or edema. PERIPHERAL PULSES: equal. NEUROLOGIC: Confused, redirectable, moving all extremities. Pulse 44 beats per minute, 99% saturations, blood pressure 124/70 Assessment and Plan (1) Complete heart block: Status: Acute 72-year-old gentleman presenting with syncope and complete heart block. He is quite agitated and confused. This is likely due to complete heart block. He will get a CT head to make sure he does not have any intracranial pathology right now. His EKG showing right bundle-branch block with left posterior fascicular block which is indication that he has significant conduction system disease. I have looked through our system and [employer] system to see if there is any old EKG available and we do not have any. He is agitated and denying any other symptoms. EKG is not showing ST elevations by my assessment. I think he should have blood workup to make sure he does not have any reversible causes like hyperkalemia. I have discussed the case with thoracic surgery. He will be seen urgently and I think he should go for dual chamber permanent pacemaker tonight. If any reversible causes like hyperkalemia or found then he obviously should be treated accordingly. Thank you for allowing me to participate in the care of your patient. Please feel free to contact me if you have any questions.
[2020-08-27] MEDS: Ketamine HCl/NS 50 MG/5 ML SYRINGE IVPUSH ×3 (14:25→16:02)
--- NOTE | 2020-08-27 14:41 | PC.NURSE ---
back from ct, pt in a first degree hear block, at hr 36, bp 124/71. pt attempting to pull at medical equipment so at this medical soft restrains in place on bilateral upper extremities, pacer pads on
[2020-08-27 14:57] LABS: Hemoglobin 14.3 g/dl (14.0-18.0); Imm Gran Abs Auto 0.03 X10*3/uL (0.00-0.03); Imm Gran Pct Auto 0.3 % (0.0-0.4); MANUAL DIFF FLAG SCAN; SCAN SMEAR FLAG 1
[2020-08-27 14:59] LABS: Basophils Absolute Auto 0.1 X10*3/uL (0.0-0.2); Basophils Percent Auto 0.8 % (0-2); Eosinophils Absolute Auto 0.3 X10*3/uL (0.0-0.4); Eosinophils Percent Auto 3.3 % (0-4); Hematocrit 45.8 % (42-52); Lymphocytes Absolute Auto 1.7 X10*3/uL (1.2-4.9); Lymphocytes Percent Auto 16.5 % (20-40); Mean Corpuscular HGB Conc 31.2 g/dl (31.0-36.0); Mean Corpuscular Hemoglobin 29.9 pg (27.0-33.0); Mean Corpuscular Volume 95.8 fL (80-98); Monocytes Absolute Auto 0.8 X10*3/uL (0.1-1.2); Monocytes Percent Auto 7.7 % (2-11); Neutrophils Absolute Auto 7.4 X10*3/uL (2.0-8.3); Neutrophils Percent Auto 71.4 % (45-73); Platelet Count 136 X10*3/uL (160-400); Red Blood Count 4.78 X10*6/uL (4.60-5.80); Red Cell Distribution Width 14.3 % (11.0-16.0); White Blood Count 10.4 X10*3/uL (4.8-10.8)
[2020-08-27 15:02] LABS: Prothrombin Time 12.3 SEC (10.8-13.0)
[2020-08-27 15:03] LABS: PLT ABN DIST 1
[2020-08-27 15:05] LABS: Partial Thromboplastin Time 32.5 SEC (24.1-38.0)
--- NOTE | 2020-08-27 15:14 | PC.NURSE ---
pt straight cathed for urine sample, pt responds to painful stimuli, attempting to grab at the de souza, daring large a mount of dark yellow urine a little over 1000ml. perrla and responding to light. still in a block on the monitor, at 35, bp maintains at 127/71
[2020-08-27 15:17] LABS: SLIDE REVIEW VERIFIED
[2020-08-27 15:26] LABS: Ethanol < 10 mg/dL
[2020-08-27 15:28] LABS: Glucose Urine UA NEG (NEG); Leukocyte Esterase Urine NEG (NEG); Nitrite Urine NEG (NEG); Urine Blood 3+ (NEG); Urine Ketones NEG (NEG); Urine Protein NEG (NEG-TRACE)
[2020-08-27 15:29] LABS: Appearance Urine CLEAR; Color Urine YELLOW
[2020-08-27 15:32] LABS: Alanine Aminotransferase 7 U/L (0-40); Albumin Level 4.5 g/dL (3.5-5.0); Alkaline Phosphatase 76 U/L (39-117); Anion Gap 19 (12-20); Aspartate Amino Transferase 13 U/L (5-37); Bilirubin Total 0.9 mg/dL (0.0-1.0); Blood Urea Nitrogen 13 mg/dL (9-16); Calcium 9.1 mg/dL (8.4-10.2); Carbon Dioxide 23 mmol/L (22-29); Chloride 104 mmol/L (96-108); Creatinine Clr Calc Pharmacy 68.3; Estimated Glomerular Filt Rate > 60; Glucose Random 138 mg/dL (60-115); Lactic Acid 5.2 mmol/L (0.5-2.0); Sodium 142 mmol/L (135-145)
[2020-08-27 15:34] LABS: Base Excess VBG -2.2 mmol/L; HCO3 VBG 24 mmol/L; PCO2 VBG 44 mmhg; PO2 VBG 91 mmhg; pH VBG 7.35 (7.32-7.43)
[2020-08-27 15:35] LABS: Blood Gas Serial # 5414; Oxygen Saturation VBG 96.6 %
[2020-08-27 15:41] LABS: Ammonia 35 umol/L (13-55)
[2020-08-27 15:42] LABS: RBC Urine 30-49 /HPF (0); WBC Urine 0 /HPF (0-4)
--- NOTE | 2020-08-27 15:48 | PC.NURSE ---
pt's hr dropping to 30-28, atropin 0.5mg iv per verbal or of dr rodrigues
[2020-08-27 15:53] LABS: Troponin-I High Sensitivity 29.3 ng/L (<3.5-35.0)
[2020-08-27 15:53] LABS: B Type Natriuretic Peptide 244 pg/mL (<100)
--- NOTE | 2020-08-27 15:54 | PC.NURSE ---
dr rodrigues at bedside to plan to intubate, pt hr keeps dipping into 29, and pt is asing abd muscle for breathing
[2020-08-27 16:00] LABS: Amphetamine Screen Urine Not Detected (Not Detect); Barbiturates, Urine Not Detected (Not Detect); Benzodiazepines Screen Urine Not Detected (Not Detect); Cannabinoid Screen Urine Not Detected (Not Detect); Cocaine Screen Urine Not Detected (Not Detect); Opiate Screen Urine Not Detected (Not Detect); Phencyclidine Screen Urine Not Detected (Not Detect)
--- NOTE | 2020-08-27 16:00 | PC.NURSE ---
getting ready to intubate, santhosh liz rt, and this rn at bedside, pt waking up more, sitting up, pulling at iv lines and medical equipment, pt given 50mg of ketamine iv push at 1600, hr dropped to 28 at this time, at 1602 additional ketamine 50mg pushed at 163 rocc 50mg pushed, bp 104/79 pt intubated with 7.5et tube and 22 @ the lip vent [id number], 50% o2, and 5.0peep
[2020-08-27] MEDS: Rocuronium Bromide 50 MG/5 ML VIAL IVPUSH (16:03)
--- NOTE | 2020-08-27 16:15 | PC.NURSE ---
pt is currently being paced setting at 70ppm and 68Ma
[2020-08-27] MEDS: fentaNYL citrate/NS 1,000 MCG/100 ML PLAST..BAG 2.5 MCG IVCONT (16:21)
[2020-08-27 16:28] LABS: Calcium 9.2 mg/dL (8.4-10.2); Magnesium 2.3 mg/dL (1.6-2.6)
--- NOTE | 2020-08-27 16:29 | FL_ITS ---
EXAMINATION: XR FLUOROSCOPY WITH IMAGES CLINICAL INFORMATION: Pacemaker placement COMPARISON: Previous chest x-ray from earlier the same day TECHNIQUE: Fluoroscopy performed by Dr. Sonya Whitten. Fluoroscopy time: 309 seconds Dose: 1 3 7 mgy Images: 1 FINDINGS: Single fluoroscopic image demonstrates a left subclavian dual chamber pacemaker in satisfactory position. FL/FL guidance in OR IMPRESSION: Fluoroscopy guidance for left subclavian dual chamber pacemaker placement.
--- NOTE | 2020-08-27 16:30 | XR_ITS ---
EXAMINATION: XR CHEST CLINICAL INFORMATION: ET tube placement COMPARISON: Previous chest CTA from earlier the same day TECHNIQUE: Frontal view of the chest was obtained. FINDINGS: The cardiac and mediastinal contours are stable. There is a new endotracheal tube with tip 7.5 cm above the [place]. There is a nasogastric tube projects below the left hemidiaphragm. The tip is not seen. There is increasing atelectasis at the right lung base. There is a right peripheral pulmonary nodule measuring 2 cm overlying the right posterior eighth rib. The lungs are otherwise clear. There is no pleural effusion or pneumothorax. There are degenerative changes of the spine. XR/XR chest 1V IMPRESSION: Endotracheal tube 7.5 cm above the [place]. This should be advanced several centimeters. Nasogastric tube projects below the left hemidiaphragm, tip not seen. Increasing atelectasis at the right base. Right base pulmonary nodule.
--- NOTE | 2020-08-27 16:52 | PC.NURSE ---
core temp de souza in place by [facility], darning of lightly red tinged urine about 100ml at this time, core temp reading at 95.2 at this time
[2020-08-27 16:53] LABS: Reflex Lactate? Lactic Acid Added
--- NOTE | 2020-08-27 16:55 | PC.NURSE ---
pt is being externally paced at this time, multiple times being shocked
[2020-08-27 17:01] LABS: SARS COV2 PCR INHOUSE NEGATIVE (Negative)
--- NOTE | 2020-08-27 17:07 | PC.NURSE ---
verbal order to advance the et tube to 25 at the lip fentaly drip increased to 50mcg/hr from 25mcg/h pt bucking the vent slightly
--- NOTE | 2020-08-27 17:20 | PC.NURSE ---
or staff at bedside, getting pt ready for transport, fentlay increased to 75mcg/hr
--- NOTE | 2020-08-27 17:45 | HO.ANESPROP2 ---
[facility] Past Medical History Medical History No known problems Social History Social History (Updated 08/27/20 @ 14:20 by Chyna Hogue DO) Alcohol intake: never Smoking Status: Never smoker Use of substances other than those prescribed or required for medical reasons: No Advance Directives: No Advance Directives Information Provided: Yes Meds Allergies Allergy/AdvReac Type Severity Reaction Status Date / Time No Known Allergies Allergy Verified 08/27/20 13:56 Home Medications Medication Instructions Recorded Confirmed Type No Known Home Meds 08/27/20 08/27/20 History Exam Exam Date and Time: August 27, 2020 1745 Height,Weight and Vital Signs: Height 6 ft 1 in Weight 83 kg Last Vital Signs Temp 95.5 F L 08/27/20 16:54 Pulse 38 L 08/27/20 16:54 Resp 18 08/27/20 16:54 BP 121/80 08/27/20 16:54 Pulse Ox 100 08/27/20 16:54 Pertinent Lab Results Pertinent Lab Results: Laboratory Tests 08/27/20 08/27/20 08/27/20 14:45 14:45 14:46 WBC 10.4 RBC 4.78 Hgb 14.3 Hct 45.8 MCV 95.8 MCH 29.9 MCHC 31.2 RDW 14.3 Plt Count 136 L MPV TNP Immature Gran % (Auto) 0.3 Neut % (Auto) 71.4 Lymph % (Auto) 16.5 L [place] % (Auto) 7.7 Eos % (Auto) 3.3 Baso % (Auto) 0.8 Lymph # (Auto) 1.7 [place] # (Auto) 0.8 Eos # (Auto) 0.3 Baso # (Auto) 0.1 Abs Immat Gran (auto) 0.03 Absolute Neuts (auto) 7.4 Absolute Nucleated RBC 0.000 Nucleated RBC % (auto) 0.0 Smear Tech's Comments VERIFIED PT INR APTT VBG pH VBG pCO2 VBG Oxygen Liters/Min VBG pO2 VBG HCO3 VBG O2 Saturation VBG Base Excess Sodium Potassium Chloride Carbon Dioxide Anion Gap BUN Creatinine Estim Creat Clear Calc Estimated GFR Random Glucose Lactic Acid Calcium 9.2 Magnesium 2.3 Total Bilirubin AST ALT Alkaline Phosphatase Ammonia Total Creatine Kinase 64 Troponin I High Sens B-Natriuretic Peptide Total Protein Albumin Urine Color Urine Appearance Urine pH Ur Specific [place] Urine Protein Urine Glucose (UA) Urine Ketones Urine Blood Urine Nitrite Ur Leukocyte Esterase Urine RBC Urine WBC Ur Squamous Epith Cells Urine Bacteria Urine Opiates Screen Ur Barbiturates Screen Ur Phencyclidine Scrn Ur Amphetamines Screen U Benzodiazepines Scrn Urine Cocaine Screen U Marijuana (THC) Screen Ethyl Alcohol < 10 Coronavirus (PCR) 08/27/20 08/27/20 08/27/20 14:46 14:46 14:46 WBC RBC Hgb Hct MCV MCH MCHC RDW Plt Count MPV Immature Gran % (Auto) Neut % (Auto) Lymph % (Auto) [place] % (Auto) Eos % (Auto) Baso % (Auto) Lymph # (Auto) [place] # (Auto) Eos # (Auto) Baso # (Auto) Abs Immat Gran (auto) Absolute Neuts (auto) Absolute Nucleated RBC Nucleated RBC % (auto) Smear Tech's Comments PT 12.3 INR 1.0 APTT 32.5 VBG pH VBG pCO2 VBG Oxygen Liters/Min VBG pO2 VBG HCO3 VBG O2 Saturation VBG Base Excess Sodium 142 Potassium 4.0 Chloride 104 Carbon Dioxide 23 Anion Gap 19 BUN 13 Creatinine 0.99 Estim Creat Clear Calc 68.3 Estimated GFR > 60 Random Glucose 138 H Lactic Acid 5.2 H* Calcium 9.1 Magnesium Total Bilirubin 0.9 AST 13 ALT 7 Alkaline Phosphatase 76 Ammonia Total Creatine Kinase Troponin I High Sens B-Natriuretic Peptide Total Protein 7.0 Albumin 4.5 Urine Color Urine Appearance Urine pH Ur Specific [place] Urine Protein Urine Glucose (UA) Urine Ketones Urine Blood Urine Nitrite Ur Leukocyte Esterase Urine RBC Urine WBC Ur Squamous Epith Cells Urine Bacteria Urine Opiates Screen Ur Barbiturates Screen Ur Phencyclidine Scrn Ur Amphetamines Screen U Benzodiazepines Scrn Urine Cocaine Screen U Marijuana (THC) Screen Ethyl Alcohol Coronavirus (PCR) 08/27/20 08/27/20 08/27/20 15:03 15:03 15:04 WBC RBC Hgb Hct MCV MCH MCHC RDW Plt Count MPV Immature Gran % (Auto) Neut % (Auto) Lymph % (Auto) [place] % (Auto) Eos % (Auto) Baso % (Auto) Lymph # (Auto) [place] # (Auto) Eos # (Auto) Baso # (Auto) Abs Immat Gran (auto) Absolute Neuts (auto) Absolute Nucleated RBC Nucleated RBC % (auto) Smear Tech's Comments PT INR APTT VBG pH VBG pCO2 VBG Oxygen Liters/Min VBG pO2 VBG HCO3 VBG O2 Saturation VBG Base Excess Sodium Potassium Chloride Carbon Dioxide Anion Gap BUN Creatinine Estim Creat Clear Calc Estimated GFR Random Glucose Lactic Acid Calcium Magnesium Total Bilirubin AST ALT Alkaline Phosphatase Ammonia 35 Total Creatine Kinase Troponin I High Sens 29.3 B-Natriuretic Peptide 244 H Total Protein Albumin Urine Color Urine Appearance Urine pH Ur Specific [place] Urine Protein Urine Glucose (UA) Urine Ketones Urine Blood Urine Nitrite Ur Leukocyte Esterase Urine RBC Urine WBC Ur Squamous Epith Cells Urine Bacteria Urine Opiates Screen Ur Barbiturates Screen Ur Phencyclidine Scrn Ur Amphetamines Screen U Benzodiazepines Scrn Urine Cocaine Screen U Marijuana (THC) Screen Ethyl Alcohol Coronavirus (PCR) 08/27/20 08/27/20 08/27/20 15:14 15:14 15:14 WBC RBC Hgb Hct MCV MCH MCHC RDW Plt Count MPV Immature Gran % (Auto) Neut % (Auto) Lymph % (Auto) [place] % (Auto) Eos % (Auto) Baso % (Auto) Lymph # (Auto) [place] # (Auto) Eos # (Auto) Baso # (Auto) Abs Immat Gran (auto) Absolute Neuts (auto) Absolute Nucleated RBC Nucleated RBC % (auto) Smear Tech's Comments PT INR APTT VBG pH VBG pCO2 VBG Oxygen Liters/Min VBG pO2 VBG HCO3 VBG O2 Saturation VBG Base Excess Sodium Potassium Chloride Carbon Dioxide Anion Gap BUN Creatinine Estim Creat Clear Calc Estimated GFR Random Glucose Lactic Acid Calcium Magnesium Total Bilirubin AST ALT Alkaline Phosphatase Ammonia Total Creatine Kinase Troponin I High Sens B-Natriuretic Peptide Total Protein Albumin Urine Color YELLOW Urine Appearance CLEAR Urine pH 6.0 Ur Specific [place] 1.020 Urine Protein NEG Urine Glucose (UA) NEG Urine Ketones NEG Urine Blood 3+ H Urine Nitrite NEG Ur Leukocyte Esterase NEG Urine RBC 30-49 H Urine WBC 0 Ur Squamous Epith Cells NONE Urine Bacteria NONE Urine Opiates Screen Not Detected Ur Barbiturates Screen Not Detected Ur Phencyclidine Scrn Not Detected Ur Amphetamines Screen Not Detected U Benzodiazepines Scrn Not Detected Urine Cocaine Screen Not Detected U Marijuana (THC) Screen Not Detected Ethyl Alcohol Coronavirus (PCR) NEGATIVE 08/27/20 15:26 WBC RBC Hgb Hct MCV MCH MCHC RDW Plt Count MPV Immature Gran % (Auto) Neut % (Auto) Lymph % (Auto) [place] % (Auto) Eos % (Auto) Baso % (Auto) Lymph # (Auto) [place] # (Auto) Eos # (Auto) Baso # (Auto) Abs Immat Gran (auto) Absolute Neuts (auto) Absolute Nucleated RBC Nucleated RBC % (auto) Smear Tech's Comments PT INR APTT VBG pH 7.35 VBG pCO2 44 VBG Oxygen Liters/Min TNP VBG pO2 91 VBG HCO3 24 VBG O2 Saturation 96.6 VBG Base Excess -2.2 Sodium Potassium Chloride Carbon Dioxide Anion Gap BUN Creatinine Estim Creat Clear Calc Estimated GFR Random Glucose Lactic Acid Calcium Magnesium Total Bilirubin AST ALT Alkaline Phosphatase Ammonia Total Creatine Kinase Troponin I High Sens B-Natriuretic Peptide Total Protein Albumin Urine Color Urine Appearance Urine pH Ur Specific [place] Urine Protein Urine Glucose (UA) Urine Ketones Urine Blood Urine Nitrite Ur Leukocyte Esterase Urine RBC Urine WBC Ur Squamous Epith Cells Urine Bacteria Urine Opiates Screen Ur Barbiturates Screen Ur Phencyclidine Scrn Ur Amphetamines Screen U Benzodiazepines Scrn Urine Cocaine Screen U Marijuana (THC) Screen Ethyl Alcohol Coronavirus (PCR) Airway Other: intubated in ER.ETT positioned well Assessment and Plan Assessment Anesthesia Assessment: Chart Reviewed Final Anesthetic Review Final Preanesthetic Review: Meds/Allgs Chart Reviewed, Consent Obtained/Reviewed and Anes Risks/Benef Reviewed Patient Risk: Intermediate Procedure Risk: Low Anesthetic Plan Anesthetic Plan: GA (ETT insitu) Disposition: Inp. Admit - ICU
[2020-08-27] MEDS: propofoL 1,000 MG/100 ML VIAL 9.96 MG IVCONT (19:50)
--- NOTE | 2020-08-27 20:18 | OP_ITS ---
SURGEON: Sonya Whitten MD PREOPERATIVE DIAGNOSIS: Complete heart block. POSTOPERATIVE DIAGNOSIS: Complete heart block. PROCEDURE PERFORMED: Placement of dual-chamber permanent pacemaker with fluoroscopic guidance. ESTIMATED BLOOD LOSS: Minimal. COMPLICATIONS: ANESTHESIA: General. ASSISTANTS: SPECIMENS: None. INDICATIONS FOR OPERATION: The patient is presented with mental status changes and was found to have complete heart block on EKG. He ultimately over a period of time became agitated and required intubation and pacing. I discussed with his an emergent dual-chamber pacemaker placement, which she understood and agreed to proceed. OPERATIVE FINDINGS: The pacemaker placed was [employer], reference number [id number], serial #[id number]. The atrial lead was [employer], serial number [id number]. The ventricular lead was [employer] [id number]. The patient's parameters in the right atrial lead, the threshold was 0.5 V at 0.5 milliseconds, impedance was 480 ohms, and the P wave was 1.5 mV. In the ventricular lead, the threshold was 0.5 V at 0.5 milliseconds, impedance of 650 ohms. No R-wave could be obtained since his heart rate was too slow. The patient tolerated the procedure quite well. OPERATION IN DETAIL: On the day of the operation, the patient was brought to the operating room, placed supine on the operative table. Anesthesia monitoring devices were placed and the patient was connected to monitors and paced. A time-out was performed confirming the correct patient, site, and procedure. The left chest was then prepped and draped in standard sterile fashion and a 3 cm incision was made in the infraclavicular area on the left side. This was carried down to the pectoralis fascia and through this incision with the patient in Trendelenburg, an 18-gauge needle was used to access the subclavian vein in the first take. A wire was placed and parked in the right atrium. A second 18-gauge needle was then used to access the subclavian vein, again on the first take, and a wire was placed and parked in the right atrium. The pocket was then formed using a combination of blunt dissection and sharp dissection and then a 6-[place] sheath was placed over the first wire and the wire and dilator were removed. The ventricular lead was placed through the sheath and the peel-away sheath was removed. Using a curved stylet, the right ventricle was accessed and positioned in the right ventricular apex. The endocardial screw was deployed and the lead was tested with excellent parameters listed above. This lead was secured to the pectoralis fascia with silk sutures. The second sheath was then placed over the second wire and the wire and dilator were removed. The atrial lead was then placed through the sheath and the peel-away sheath was removed. Using a J stylet, the lead was positioned in the right atrial appendage and the endocardial screw was deployed. The lead was then tested with excellent parameters above. This lead was also secured to the pectoralis fascia with silk sutures. The wound was then copiously irrigated with antibiotic solution and the leads were then placed in the appropriate receptacles of the pacemaker generator. Of note, once the ventricular lead was in place and tested well. We used this as our ventricular pacing at a rate of 90 during the remainder of the case. Once the leads were placed into their receptacles, the pacemaker started working immediately. The wound was then closed with a deep running 3-0 Vicryl suture followed by running 3-0 Vicryl suture and Dermabond glue. The wound was dressed with Telfa and Tegaderm. The patient tolerated the procedure well, was brought to the ICU in stable condition. MD FOREST Saldana/PIYUSH / [id number]
[2020-08-27 21:04] LABS: ~Lactic Acid-LAB USE ONLY 1.9 mmol/L (0.5-2.0)
--- NOTE | 2020-08-27 21:40 | PM.CCHP ---
History of Present Illness Date of Service: 08/27/20 Chief Complaint: syncopal episode 80yo male who hasn't been to a doctor in years, was BIBA to the ED today after having a syncopal episode vs seizure witnessed by his . Upon arrival to the ED, pt was found to be in complete heart block, Dr Zamora saw pt in the ED, thoracic surgery was called to place a PPM. While in the ED, pt became very agitated, HR was 23bpm, pt rec'd atropine. Patient agitated again, BP dropping, altered, HR in 20s - intubated and cutaneous pacing with good success rate 70, ma 68 for consistent capture, good pulses, BP 120/86. 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 Labs notable for platelets 136, BNP 244 and lactic acid 5.2 then 1.9, likely elevated 2/2 severe agitation while in ED. All other labs unremarkable. Thoracic surgery to place PPM at 5pm in OR, then pt will be brought to the ICU. Review of Systems Review of Systems: Yes unobtainable due to endotracheal tube PMFSH Past Medical History Medical History No known problems Functional capacity: independent ambulation Social History Social History Household Members: Spouse Housing: House Do you presently have visiting nurse or other home services: No Alcohol intake: never Smoking Status: Never smoker Use of substances other than those prescribed or required for medical reasons: No Currently Displaying Signs/Symptoms of Drug Intoxication Withdrawal: No Advance Directives: No Advance Directives Information Provided: Yes Do you have thoughts of harming others: None Recently lost weight without trying: No service: Yes Current occupational status: retired Meds Allergies Allergy/AdvReac Type Severity Reaction Status Date / Time No Known Allergies Allergy Verified 08/27/20 13:56 Home Medications Medication Instructions Recorded Confirmed Type No Known Home Meds 08/27/20 08/27/20 History Physical Exam Vital Signs: Vital Signs: Vital Signs Temp Pulse Resp BP Pulse Ox 08/27/20 21:04 61 18 121/77 100 08/27/20 20:47 61 18 113/72 98 08/27/20 20:32 63 18 115/74 98 08/27/20 20:17 62 18 119/75 99 08/27/20 20:05 96.1 F L 63 18 118/75 97 08/27/20 19:51 63 121/80 97 08/27/20 19:40 63 18 122/76 97 08/27/20 19:31 63 18 117/75 97 08/27/20 19:25 62 18 111/72 97 08/27/20 19:15 95.9 F L 63 18 104/65 97 08/27/20 17:22 42 L 18 114/51 L 100 08/27/20 16:54 95.5 F L 38 L 18 121/80 100 08/27/20 16:49 62 119/99 H 100 08/27/20 16:39 70 20 98/67 100 08/27/20 16:15 41 L 18 104/60 100 08/27/20 16:05 28 L 104/74 100 08/27/20 16:00 24 L 20 104/79 100 08/27/20 15:52 26 L 18 116/53 L 100 08/27/20 15:51 28 L 20 106/43 L 99 08/27/20 15:05 33 L 119/72 08/27/20 14:54 35 L 20 129/79 98 08/27/20 14:52 98 F 36 L 16 170/74 H 99 08/27/20 14:50 33 L 127/71 08/27/20 14:45 34 L 129/79 99 08/27/20 14:40 36 L 20 124/71 98 08/27/20 14:39 35 L 20 129/79 08/27/20 14:30 36 L 20 124/71 99 08/27/20 14:20 33 L 20 124/71 08/27/20 14:15 42 L 162/94 H 99 08/27/20 14:00 42 L 20 142/98 H 100 Body Mass Index 24.1 Const: Other: sedated and intubated HENMT: Head: Yes normal to inspection Face and sinus: Yes normal facial exam Eyes: General: appearance normal, both eyes and all related structures Neck: Neck: Yes normal visual inspection Resp: Other: intubated Auscultation: clear to auscultation bilaterally Cardio: Rate: regular rate Rhythm: regular rhythm GI: Inspection: Yes normal to inspection Palpation (GI): Soft to palpation Auscultation: normal bowel sounds Skin: Other: left upper chest, bandage, C/D/I Neuro: Other: sedated and intubated Extrem: General: Yes normal to inspection and Yes no pedal edema Results Labs Labs: Laboratory Tests 08/27/20 08/27/20 08/27/20 14:45 14:45 14:46 WBC 10.4 RBC 4.78 Hgb 14.3 Hct 45.8 MCV 95.8 MCH 29.9 MCHC 31.2 RDW 14.3 Plt Count 136 L MPV TNP Immature Gran % (Auto) 0.3 Neut % (Auto) 71.4 Lymph % (Auto) 16.5 L [place] % (Auto) 7.7 Eos % (Auto) 3.3 Baso % (Auto) 0.8 Lymph # (Auto) 1.7 [place] # (Auto) 0.8 Eos # (Auto) 0.3 Baso # (Auto) 0.1 Abs Immat Gran (auto) 0.03 Absolute Neuts (auto) 7.4 Absolute Nucleated RBC 0.000 Nucleated RBC % (auto) 0.0 Smear Tech's Comments VERIFIED PT INR APTT VBG pH VBG pCO2 VBG Oxygen Liters/Min VBG pO2 VBG HCO3 VBG O2 Saturation VBG Base Excess Sodium Potassium Chloride Carbon Dioxide Anion Gap BUN Creatinine Estim Creat Clear Calc Estimated GFR Random Glucose Lactic Acid Lactic Acid Fup @ 2Hr Calcium 9.2 Magnesium 2.3 Total Bilirubin AST ALT Alkaline Phosphatase Ammonia Total Creatine Kinase 64 Troponin I High Sens B-Natriuretic Peptide Total Protein Albumin Urine Color Urine Appearance Urine pH Ur Specific [place] Urine Protein Urine Glucose (UA) Urine Ketones Urine Blood Urine Nitrite Ur Leukocyte Esterase Urine RBC Urine WBC Ur Squamous Epith Cells Urine Bacteria Urine Opiates Screen Ur Barbiturates Screen Ur Phencyclidine Scrn Ur Amphetamines Screen U Benzodiazepines Scrn Urine Cocaine Screen U Marijuana (THC) Screen Ethyl Alcohol < 10 Coronavirus (PCR) 08/27/20 08/27/20 08/27/20 14:46 14:46 14:46 WBC RBC Hgb Hct MCV MCH MCHC RDW Plt Count MPV Immature Gran % (Auto) Neut % (Auto) Lymph % (Auto) [place] % (Auto) Eos % (Auto) Baso % (Auto) Lymph # (Auto) [place] # (Auto) Eos # (Auto) Baso # (Auto) Abs Immat Gran (auto) Absolute Neuts (auto) Absolute Nucleated RBC Nucleated RBC % (auto) Smear Tech's Comments PT 12.3 INR 1.0 APTT 32.5 VBG pH VBG pCO2 VBG Oxygen Liters/Min VBG pO2 VBG HCO3 VBG O2 Saturation VBG Base Excess Sodium 142 Potassium 4.0 Chloride 104 Carbon Dioxide 23 Anion Gap 19 BUN 13 Creatinine 0.99 Estim Creat Clear Calc 68.3 Estimated GFR > 60 Random Glucose 138 H Lactic Acid 5.2 H* Lactic Acid Fup @ 2Hr Calcium 9.1 Magnesium Total Bilirubin 0.9 AST 13 ALT 7 Alkaline Phosphatase 76 Ammonia Total Creatine Kinase Troponin I High Sens B-Natriuretic Peptide Total Protein 7.0 Albumin 4.5 Urine Color Urine Appearance Urine pH Ur Specific [place] Urine Protein Urine Glucose (UA) Urine Ketones Urine Blood Urine Nitrite Ur Leukocyte Esterase Urine RBC Urine WBC Ur Squamous Epith Cells Urine Bacteria Urine Opiates Screen Ur Barbiturates Screen Ur Phencyclidine Scrn Ur Amphetamines Screen U Benzodiazepines Scrn Urine Cocaine Screen U Marijuana (THC) Screen Ethyl Alcohol Coronavirus (PCR) 08/27/20 08/27/20 08/27/20 15:03 15:03 15:04 WBC RBC Hgb Hct MCV MCH MCHC RDW Plt Count MPV Immature Gran % (Auto) Neut % (Auto) Lymph % (Auto) [place] % (Auto) Eos % (Auto) Baso % (Auto) Lymph # (Auto) [place] # (Auto) Eos # (Auto) Baso # (Auto) Abs Immat Gran (auto) Absolute Neuts (auto) Absolute Nucleated RBC Nucleated RBC % (auto) Smear Tech's Comments PT INR APTT VBG pH VBG pCO2 VBG Oxygen Liters/Min VBG pO2 VBG HCO3 VBG O2 Saturation VBG Base Excess Sodium Potassium Chloride Carbon Dioxide Anion Gap BUN Creatinine Estim Creat Clear Calc Estimated GFR Random Glucose Lactic Acid Lactic Acid Fup @ 2Hr Calcium Magnesium Total Bilirubin AST ALT Alkaline Phosphatase Ammonia 35 Total Creatine Kinase Troponin I High Sens 29.3 B-Natriuretic Peptide 244 H Total Protein Albumin Urine Color Urine Appearance Urine pH Ur Specific [place] Urine Protein Urine Glucose (UA) Urine Ketones Urine Blood Urine Nitrite Ur Leukocyte Esterase Urine RBC Urine WBC Ur Squamous Epith Cells Urine Bacteria Urine Opiates Screen Ur Barbiturates Screen Ur Phencyclidine Scrn Ur Amphetamines Screen U Benzodiazepines Scrn Urine Cocaine Screen U Marijuana (THC) Screen Ethyl Alcohol Coronavirus (PCR) 08/27/20 08/27/20 08/27/20 15:14 15:14 15:14 WBC RBC Hgb Hct MCV MCH MCHC RDW Plt Count MPV Immature Gran % (Auto) Neut % (Auto) Lymph % (Auto) [place] % (Auto) Eos % (Auto) Baso % (Auto) Lymph # (Auto) [place] # (Auto) Eos # (Auto) Baso # (Auto) Abs Immat Gran (auto) Absolute Neuts (auto) Absolute Nucleated RBC Nucleated RBC % (auto) Smear Tech's Comments PT INR APTT VBG pH VBG pCO2 VBG Oxygen Liters/Min VBG pO2 VBG HCO3 VBG O2 Saturation VBG Base Excess Sodium Potassium Chloride Carbon Dioxide Anion Gap BUN Creatinine Estim Creat Clear Calc Estimated GFR Random Glucose Lactic Acid Lactic Acid Fup @ 2Hr Calcium Magnesium Total Bilirubin AST ALT Alkaline Phosphatase Ammonia Total Creatine Kinase Troponin I High Sens B-Natriuretic Peptide Total Protein Albumin Urine Color YELLOW Urine Appearance CLEAR Urine pH 6.0 Ur Specific [place] 1.020 Urine Protein NEG Urine Glucose (UA) NEG Urine Ketones NEG Urine Blood 3+ H Urine Nitrite NEG Ur Leukocyte Esterase NEG Urine RBC 30-49 H Urine WBC 0 Ur Squamous Epith Cells NONE Urine Bacteria NONE Urine Opiates Screen Not Detected Ur Barbiturates Screen Not Detected Ur Phencyclidine Scrn Not Detected Ur Amphetamines Screen Not Detected U Benzodiazepines Scrn Not Detected Urine Cocaine Screen Not Detected U Marijuana (THC) Screen Not Detected Ethyl Alcohol Coronavirus (PCR) NEGATIVE 08/27/20 08/27/20 15:26 20:25 WBC RBC Hgb Hct MCV MCH MCHC RDW Plt Count MPV Immature Gran % (Auto) Neut % (Auto) Lymph % (Auto) [place] % (Auto) Eos % (Auto) Baso % (Auto) Lymph # (Auto) [place] # (Auto) Eos # (Auto) Baso # (Auto) Abs Immat Gran (auto) Absolute Neuts (auto) Absolute Nucleated RBC Nucleated RBC % (auto) Smear Tech's Comments PT INR APTT VBG pH 7.35 VBG pCO2 44 VBG Oxygen Liters/Min TNP VBG pO2 91 VBG HCO3 24 VBG O2 Saturation 96.6 VBG Base Excess -2.2 Sodium Potassium Chloride Carbon Dioxide Anion Gap BUN Creatinine Estim Creat Clear Calc Estimated GFR Random Glucose Lactic Acid Lactic Acid Fup @ 2Hr 1.9 Calcium Magnesium Total Bilirubin AST ALT Alkaline Phosphatase Ammonia Total Creatine Kinase Troponin I High Sens B-Natriuretic Peptide Total Protein Albumin Urine Color Urine Appearance Urine pH Ur Specific [place] Urine Protein Urine Glucose (UA) Urine Ketones Urine Blood Urine Nitrite Ur Leukocyte Esterase Urine RBC Urine WBC Ur Squamous Epith Cells Urine Bacteria Urine Opiates Screen Ur Barbiturates Screen Ur Phencyclidine Scrn Ur Amphetamines Screen U Benzodiazepines Scrn Urine Cocaine Screen U Marijuana (THC) Screen Ethyl Alcohol Coronavirus (PCR) Assessment and Plan (1) Complete heart block: Status: Acute Pt rec'd dual chamber PPM placed by Thoracic surgery today in the OR. Pt in ICU for overnight monitoring. (2) Acute alteration in mental status: Status: Acute Pt intubated and sedated, will wean sedation in the AM to prepare to extubate.
[2020-08-28] VITALS (18 sets, daily range): BP systolic 88–123; BP diastolic 44–92; PULSE 60–97; RESP 17–20; TEMP 36.2–37.2; O2SAT 93–100; BMI 24.3
[2020-08-28] MEDS: 0.9 % Sodium Chloride Flush 3 ML SYRINGE IVFLUSH ×4 (00:44→22:17)
[2020-08-28] MEDS: propofoL 1,000 MG/100 ML VIAL 9.96 MG IVCONT (03:11)
--- NOTE | 2020-08-28 04:52 | PC.NURSE ---
Patient arrived from OR after pacemaker placement. Patient intubated and ventilated at this time. Patient was placed on light sedation with propofol. Patient resting well throughout shift; afebrile, predominantly VPaced on the monitor. was updated at the bedside at patient's arrival.
[2020-08-28 06:02] LABS: Basophils Percent Auto 0.4 % (0-2); Hematocrit 42.6 % (42-52); MANUAL DIFF FLAG SCAN; Mean Corpuscular HGB Conc 30.5 g/dl (31.0-36.0); Mean Corpuscular Hemoglobin 30.1 pg (27.0-33.0); Mean Corpuscular Volume 98.6 fL (80-98); Monocytes Percent Auto 10.5 % (2-11); Red Blood Count 4.32 X10*6/uL (4.60-5.80); SCAN SMEAR FLAG 1
[2020-08-28 06:04] LABS: Eosinophils Absolute Auto 0.1 X10*3/uL (0.0-0.4); Imm Gran Abs Auto 0.03 X10*3/uL (0.00-0.03); Imm Gran Pct Auto 0.3 % (0.0-0.4); Lymphocytes Absolute Auto 0.8 X10*3/uL (1.2-4.9); Lymphocytes Percent Auto 7.3 % (20-40); Monocytes Absolute Auto 1.1 X10*3/uL (0.1-1.2); Neutrophils Absolute Auto 8.5 X10*3/uL (2.0-8.3); Neutrophils Percent Auto 80.5 % (45-73); PLT CLUMP 1; Red Cell Distribution Width 14.3 % (11.0-16.0)
[2020-08-28 06:20] LABS: HCO3 VBG 18 mmol/L; PCO2 VBG 27 mmhg; PO2 VBG 69 mmhg; pH VBG 7.46 (7.32-7.43)
[2020-08-28 06:21] LABS: Oxygen Saturation VBG 95.5 %
[2020-08-28 06:32] LABS: Anion Gap 17 (12-20); Blood Urea Nitrogen 11 mg/dL (9-16); Calcium 8.4 mg/dL (8.4-10.2); Carbon Dioxide 20 mmol/L (22-29); Chloride 109 mmol/L (96-108); Creatinine Clr Calc Pharmacy 90.2; Estimated Glomerular Filt Rate > 60; Glucose Random 74 mg/dL (60-115); Potassium 4.3 mmol/l (3.3-5.1); Sodium 142 mmol/L (135-145)
[2020-08-28 06:38] LABS: PLT ABN DIST 1
--- NOTE | 2020-08-28 07:18 | ECG_ITS ---
Test Reason : AMS Blood Pressure : / mmHG Vent. Rate : 042 BPM Atrial Rate : 042 BPM P-R Int : 242 ms QRS Dur : 162 ms QT Int : 566 ms P-R-T Axes : 000 200 -21 degrees QTc Int : 472 ms Poor data quality Junctional Rhythm with S-A block or transient A-V block with A-V dissociation Right bundle branch block Abnormal ECG No previous ECGs available Referred By: Chyna Hogue Electronically Signed By:NAN KING MD
--- NOTE | 2020-08-28 07:30 | P.PNCC_ITS ---
Subjective Subjective Date of Service: 08/28/20 Interval History: Mr. Gillespie was admitted to the ICU last night after permanent pacemaker implantation in the OR by Dr. Yancey. The patient is a 80yo male who hasn't been to a doctor in years, was BIBA to the ED today after having a syncopal episode witnessed by his . Upon arrival to the ED, pt was found to be in complete heart block, Dr Zamora saw pt in the ED, thoracic surgery was called to place a PPM. While in the ED, pt became very agitated, altered, HR in 20s. He was intubated and paced transcutaneously until he got his PPM in the OR. Was brought out to ICU still intubated. Overnight he did well and was extubated earlier this morning. He?s breathing easy with sat of 94% on room air. See vital signs below. Stable for transfer to [facility]. I will sign out to the hospitalists. Physical Exam Vital Signs: Vital Signs: Vital Signs Temp Pulse Resp BP Pulse Ox 08/28/20 07:00 70 17 122/67 94 08/28/20 06:03 73 20 115/67 99 08/28/20 05:04 71 20 120/60 97 08/28/20 04:20 98.4 F 68 19 113/71 98 08/28/20 03:11 98.2 F 63 18 113/71 100 08/28/20 02:00 98.1 F 72 18 96/63 98 08/28/20 01:02 64 18 93/62 97 08/28/20 00:04 98.2 F 60 18 123/74 99 08/27/20 23:34 62 18 119/78 100 08/27/20 23:09 63 18 118/78 99 08/27/20 22:33 64 18 115/78 100 08/27/20 22:04 97.2 F 62 18 122/74 100 08/27/20 21:31 96.8 F 62 18 114/74 100 08/27/20 21:04 61 18 121/77 100 08/27/20 20:47 61 18 113/72 98 08/27/20 20:32 63 18 115/74 98 08/27/20 20:17 62 18 119/75 99 08/27/20 20:05 96.1 F L 63 18 118/75 97 08/27/20 19:51 63 121/80 97 08/27/20 19:40 63 18 122/76 97 08/27/20 19:31 63 18 117/75 97 08/27/20 19:25 62 18 111/72 97 08/27/20 19:15 95.9 F L 63 18 104/65 97 08/27/20 17:22 42 L 18 114/51 L 100 08/27/20 16:54 95.5 F L 38 L 18 121/80 100 08/27/20 16:49 62 119/99 H 100 08/27/20 16:39 70 20 98/67 100 08/27/20 16:15 41 L 18 104/60 100 08/27/20 16:05 28 L 104/74 100 08/27/20 16:00 24 L 20 104/79 100 08/27/20 15:52 26 L 18 116/53 L 100 08/27/20 15:51 28 L 20 106/43 L 99 08/27/20 15:05 33 L 119/72 08/27/20 14:54 35 L 20 129/79 98 08/27/20 14:52 98 F 36 L 16 170/74 H 99 08/27/20 14:50 33 L 127/71 08/27/20 14:45 34 L 129/79 99 08/27/20 14:40 36 L 20 124/71 98 08/27/20 14:39 35 L 20 129/79 08/27/20 14:30 36 L 20 124/71 99 08/27/20 14:20 33 L 20 124/71 08/27/20 14:15 42 L 162/94 H 99 08/27/20 14:00 42 L 20 142/98 H 100 Body Mass Index 24.1 Objective Data Labs CBC & Chem 7: 08/27/20 14:46 08/28/20 05:37 Labs: Laboratory Results - last 24 hr 08/27/20 08/27/20 08/27/20 14:45 14:45 14:46 WBC 10.4 RBC 4.78 Hgb 14.3 Hct 45.8 MCV 95.8 MCH 29.9 MCHC 31.2 RDW 14.3 Plt Count 136 L MPV TNP Immature Gran % (Auto) 0.3 Neut % (Auto) 71.4 Lymph % (Auto) 16.5 L [place] % (Auto) 7.7 Eos % (Auto) 3.3 Baso % (Auto) 0.8 Lymph # (Auto) 1.7 [place] # (Auto) 0.8 Eos # (Auto) 0.3 Baso # (Auto) 0.1 Abs Immat Gran (auto) 0.03 Absolute Neuts (auto) 7.4 Absolute Nucleated RBC 0.000 Nucleated RBC % (auto) 0.0 Smear Tech's Comments VERIFIED PT INR APTT VBG pH VBG pCO2 VBG Oxygen Liters/Min VBG pO2 VBG HCO3 VBG O2 Saturation VBG Base Excess Sodium Potassium Chloride Carbon Dioxide Anion Gap BUN Creatinine Estim Creat Clear Calc Estimated GFR Random Glucose Lactic Acid Lactic Acid Fup @ 2Hr Calcium 9.2 Magnesium 2.3 Total Bilirubin AST ALT Alkaline Phosphatase Ammonia Total Creatine Kinase 64 Troponin I High Sens B-Natriuretic Peptide Total Protein Albumin Urine Color Urine Appearance Urine pH Ur Specific [place] Urine Protein Urine Glucose (UA) Urine Ketones Urine Blood Urine Nitrite Ur Leukocyte Esterase Urine RBC Urine WBC Ur Squamous Epith Cells Urine Bacteria Urine Opiates Screen Ur Barbiturates Screen Ur Phencyclidine Scrn Ur Amphetamines Screen U Benzodiazepines Scrn Urine Cocaine Screen U Marijuana (THC) Screen Ethyl Alcohol < 10 Coronavirus (PCR) 08/27/20 08/27/20 08/27/20 14:46 14:46 14:46 WBC RBC Hgb Hct MCV MCH MCHC RDW Plt Count MPV Immature Gran % (Auto) Neut % (Auto) Lymph % (Auto) [place] % (Auto) Eos % (Auto) Baso % (Auto) Lymph # (Auto) [place] # (Auto) Eos # (Auto) Baso # (Auto) Abs Immat Gran (auto) Absolute Neuts (auto) Absolute Nucleated RBC Nucleated RBC % (auto) Smear Tech's Comments PT 12.3 INR 1.0 APTT 32.5 VBG pH VBG pCO2 VBG Oxygen Liters/Min VBG pO2 VBG HCO3 VBG O2 Saturation VBG Base Excess Sodium 142 Potassium 4.0 Chloride 104 Carbon Dioxide 23 Anion Gap 19 BUN 13 Creatinine 0.99 Estim Creat Clear Calc 68.3 Estimated GFR > 60 Random Glucose 138 H Lactic Acid 5.2 H* Lactic Acid Fup @ 2Hr Calcium 9.1 Magnesium Total Bilirubin 0.9 AST 13 ALT 7 Alkaline Phosphatase 76 Ammonia Total Creatine Kinase Troponin I High Sens B-Natriuretic Peptide Total Protein 7.0 Albumin 4.5 Urine Color Urine Appearance Urine pH Ur Specific [place] Urine Protein Urine Glucose (UA) Urine Ketones Urine Blood Urine Nitrite Ur Leukocyte Esterase Urine RBC Urine WBC Ur Squamous Epith Cells Urine Bacteria Urine Opiates Screen Ur Barbiturates Screen Ur Phencyclidine Scrn Ur Amphetamines Screen U Benzodiazepines Scrn Urine Cocaine Screen U Marijuana (THC) Screen Ethyl Alcohol Coronavirus (PCR) 08/27/20 08/27/20 08/27/20 15:03 15:03 15:04 WBC RBC Hgb Hct MCV MCH MCHC RDW Plt Count MPV Immature Gran % (Auto) Neut % (Auto) Lymph % (Auto) [place] % (Auto) Eos % (Auto) Baso % (Auto) Lymph # (Auto) [place] # (Auto) Eos # (Auto) Baso # (Auto) Abs Immat Gran (auto) Absolute Neuts (auto) Absolute Nucleated RBC Nucleated RBC % (auto) Smear Tech's Comments PT INR APTT VBG pH VBG pCO2 VBG Oxygen Liters/Min VBG pO2 VBG HCO3 VBG O2 Saturation VBG Base Excess Sodium Potassium Chloride Carbon Dioxide Anion Gap BUN Creatinine Estim Creat Clear Calc Estimated GFR Random Glucose Lactic Acid Lactic Acid Fup @ 2Hr Calcium Magnesium Total Bilirubin AST ALT Alkaline Phosphatase Ammonia 35 Total Creatine Kinase Troponin I High Sens 29.3 B-Natriuretic Peptide 244 H Total Protein Albumin Urine Color Urine Appearance Urine pH Ur Specific [place] Urine Protein Urine Glucose (UA) Urine Ketones Urine Blood Urine Nitrite Ur Leukocyte Esterase Urine RBC Urine WBC Ur Squamous Epith Cells Urine Bacteria Urine Opiates Screen Ur Barbiturates Screen Ur Phencyclidine Scrn Ur Amphetamines Screen U Benzodiazepines Scrn Urine Cocaine Screen U Marijuana (THC) Screen Ethyl Alcohol Coronavirus (PCR) 08/27/20 08/27/20 08/27/20 15:14 15:14 15:14 WBC RBC Hgb Hct MCV MCH MCHC RDW Plt Count MPV Immature Gran % (Auto) Neut % (Auto) Lymph % (Auto) [place] % (Auto) Eos % (Auto) Baso % (Auto) Lymph # (Auto) [place] # (Auto) Eos # (Auto) Baso # (Auto) Abs Immat Gran (auto) Absolute Neuts (auto) Absolute Nucleated RBC Nucleated RBC % (auto) Smear Tech's Comments PT INR APTT VBG pH VBG pCO2 VBG Oxygen Liters/Min VBG pO2 VBG HCO3 VBG O2 Saturation VBG Base Excess Sodium Potassium Chloride Carbon Dioxide Anion Gap BUN Creatinine Estim Creat Clear Calc Estimated GFR Random Glucose Lactic Acid Lactic Acid Fup @ 2Hr Calcium Magnesium Total Bilirubin AST ALT Alkaline Phosphatase Ammonia Total Creatine Kinase Troponin I High Sens B-Natriuretic Peptide Total Protein Albumin Urine Color YELLOW Urine Appearance CLEAR Urine pH 6.0 Ur Specific [place] 1.020 Urine Protein NEG Urine Glucose (UA) NEG Urine Ketones NEG Urine Blood 3+ H Urine Nitrite NEG Ur Leukocyte Esterase NEG Urine RBC 30-49 H Urine WBC 0 Ur Squamous Epith Cells NONE Urine Bacteria NONE Urine Opiates Screen Not Detected Ur Barbiturates Screen Not Detected Ur Phencyclidine Scrn Not Detected Ur Amphetamines Screen Not Detected U Benzodiazepines Scrn Not Detected Urine Cocaine Screen Not Detected U Marijuana (THC) Screen Not Detected Ethyl Alcohol Coronavirus (PCR) NEGATIVE 08/27/20 08/27/20 08/28/20 15:26 20:25 05:37 WBC RBC Hgb Hct MCV MCH MCHC RDW Plt Count MPV Not Reportable Immature Gran % (Auto) Neut % (Auto) Lymph % (Auto) [place] % (Auto) Eos % (Auto) Baso % (Auto) Lymph # (Auto) [place] # (Auto) Eos # (Auto) Baso # (Auto) Abs Immat Gran (auto) Absolute Neuts (auto) Absolute Nucleated RBC Nucleated RBC % (auto) Smear Tech's Comments PT INR APTT VBG pH 7.35 VBG pCO2 44 VBG Oxygen Liters/Min TNP VBG pO2 91 VBG HCO3 24 VBG O2 Saturation 96.6 VBG Base Excess -2.2 Sodium Potassium Chloride Carbon Dioxide Anion Gap BUN Creatinine Estim Creat Clear Calc Estimated GFR Random Glucose Lactic Acid Lactic Acid Fup @ 2Hr 1.9 Calcium Magnesium Total Bilirubin AST ALT Alkaline Phosphatase Ammonia Total Creatine Kinase Troponin I High Sens B-Natriuretic Peptide Total Protein Albumin Urine Color Urine Appearance Urine pH Ur Specific [place] Urine Protein Urine Glucose (UA) Urine Ketones Urine Blood Urine Nitrite Ur Leukocyte Esterase Urine RBC Urine WBC Ur Squamous Epith Cells Urine Bacteria Urine Opiates Screen Ur Barbiturates Screen Ur Phencyclidine Scrn Ur Amphetamines Screen U Benzodiazepines Scrn Urine Cocaine Screen U Marijuana (THC) Screen Ethyl Alcohol Coronavirus (PCR) 08/28/20 08/28/20 05:37 05:37 WBC RBC Hgb Hct MCV MCH MCHC RDW Plt Count MPV Immature Gran % (Auto) Neut % (Auto) Lymph % (Auto) [place] % (Auto) Eos % (Auto) Baso % (Auto) Lymph # (Auto) [place] # (Auto) Eos # (Auto) Baso # (Auto) Abs Immat Gran (auto) Absolute Neuts (auto) Absolute Nucleated RBC Nucleated RBC % (auto) Smear Tech's Comments PT INR APTT VBG pH 7.46 H VBG pCO2 27 VBG Oxygen Liters/Min TNP VBG pO2 69 VBG HCO3 18 VBG O2 Saturation 95.5 VBG Base Excess -4.0 Sodium 142 Potassium 4.3 Chloride 109 H Carbon Dioxide 20 L Anion Gap 17 BUN 11 Creatinine 0.75 Estim Creat Clear Calc 90.2 Estimated GFR > 60 Random Glucose 74 D Lactic Acid Lactic Acid Fup @ 2Hr Calcium 8.4 Magnesium Total Bilirubin AST ALT Alkaline Phosphatase Ammonia Total Creatine Kinase Troponin I High Sens B-Natriuretic Peptide Total Protein Albumin Urine Color Urine Appearance Urine pH Ur Specific [place] Urine Protein Urine Glucose (UA) Urine Ketones Urine Blood Urine Nitrite Ur Leukocyte Esterase Urine RBC Urine WBC Ur Squamous Epith Cells Urine Bacteria Urine Opiates Screen Ur Barbiturates Screen Ur Phencyclidine Scrn Ur Amphetamines Screen U Benzodiazepines Scrn Urine Cocaine Screen U Marijuana (THC) Screen Ethyl Alcohol Coronavirus (PCR) Progress Note: A&P Time Spent With Patient Time: Total time spent is greater than 50% in coordination of care (as documented) at patient's floor/unit and/or counseling patient: Total time spent with greater than 50% in coordination of care (as documented) at patient's floor/unit and/or counseling patient:: 0
[2020-08-28 07:46] LABS: Glucose, Whole Blood 127 mg/dL (60-115)
--- NOTE | 2020-08-28 07:50 | PC.NURSE ---
[place] [facility] [place] garbled speech c/o fatigue and being cold v-paced surgical site wnl no c/o pain
[2020-08-28 08:17] LABS: White Blood Count 10.6 X10*3/uL (4.8-10.8)
[2020-08-28 08:18] LABS: Platelet Count 94 X10*3/uL (160-400)
[2020-08-28 08:19] LABS: SLIDE REVIEW VERIFIED
--- NOTE | 2020-08-28 12:31 | HO.POSTANES ---
Post Anesthesia Evaluation Post Anesthesia Evaluation Vital Signs: Vital Signs Temp Pulse Resp BP Pulse Ox 08/28/20 12:00 98.6 F 68 20 110/64 95 08/28/20 08:45 96/56 L 08/28/20 08:22 71 90/44 L 08/28/20 08:00 99.0 F 68 19 88/48 L 93 08/28/20 07:00 70 17 122/67 94 08/28/20 06:03 73 20 115/67 99 08/28/20 05:04 71 20 120/60 97 08/28/20 04:20 98.4 F 68 19 113/71 98 08/28/20 03:11 98.2 F 63 18 113/71 100 08/28/20 02:00 98.1 F 72 18 96/63 98 08/28/20 01:02 64 18 93/62 97 Anesthesia: General Mental Status: Awake Pain Control: Satisfactory Nausea/Vomiting: None Hydration: Adequate Anesthesia-Related Issues: No Anes. Related Issues
--- NOTE | 2020-08-28 13:55 | MHC.CM.PN ---
CM met with Patient, who is very [place], and his . Patient lives in a 2 apartment House with his and he uses a cane to assist with mobility. Patient's goal is to return home and CM has initiated and will follow for dc planning. IMM addressed with Patient and his and the original has been given to them and a copy has been placed on the chart. Patient has no PCP.
--- NOTE | 2020-08-28 16:18 | P.PNTS_ITS ---
Subjective Subjective Interval history: Patient seen and examined this afternoon. at bedside. He is anxious to go home. Slightly confused on the date but able to explain to me how he got here. Left arm was somewhat in sling but needed to be educated on how to keep it properly on. Denies any lightheadedness, fevers, chills, shortness of breath, or palpitations. Otherwise, no other complaints. Physical Exam Vital Signs: Vital Signs: Vital Signs Temp Pulse Resp BP Pulse Ox 08/28/20 15:47 97.2 F 73 20 123/73 94 08/28/20 12:00 98.6 F 68 20 110/64 95 08/28/20 08:45 96/56 L 08/28/20 08:22 71 90/44 L 08/28/20 08:00 99.0 F 68 19 88/48 L 93 08/28/20 07:00 70 17 122/67 94 08/28/20 06:03 73 20 115/67 99 08/28/20 05:04 71 20 120/60 97 08/28/20 04:20 98.4 F 68 19 113/71 98 08/28/20 03:11 98.2 F 63 18 113/71 100 08/28/20 02:00 98.1 F 72 18 96/63 98 08/28/20 01:02 64 18 93/62 97 08/28/20 00:04 98.2 F 60 18 123/74 99 08/27/20 23:34 62 18 119/78 100 08/27/20 23:09 63 18 118/78 99 08/27/20 22:33 64 18 115/78 100 08/27/20 22:04 97.2 F 62 18 122/74 100 08/27/20 21:31 96.8 F 62 18 114/74 100 08/27/20 21:04 61 18 121/77 100 08/27/20 20:47 61 18 113/72 98 08/27/20 20:32 63 18 115/74 98 08/27/20 20:17 62 18 119/75 99 08/27/20 20:05 96.1 F L 63 18 118/75 97 08/27/20 19:51 63 121/80 97 08/27/20 19:40 63 18 122/76 97 08/27/20 19:31 63 18 117/75 97 08/27/20 19:25 62 18 111/72 97 08/27/20 19:15 95.9 F L 63 18 104/65 97 08/27/20 17:22 42 L 18 114/51 L 100 08/27/20 16:54 95.5 F L 38 L 18 121/80 100 08/27/20 16:49 62 119/99 H 100 08/27/20 16:39 70 20 98/67 100 Body Mass Index 24.3 Const: General: cooperative, healthy appearing, comfortable and no acute distress Nutritional Appearance: well nourished Orientation/consciousness: oriented to person and oriented to place Limitations: no limitations HENMT: Head: Yes normal to inspection, Yes normocephalic and Yes atraumatic Mouth: Normal oral and palatal mucosa present Eyes: Visual Tiwari: normal visual tiwari by confrontation Alignment and Position: alignment normal Periorbital: periorbital findings normal Conjunctivae: conjunctivae normal Sclerae: sclerae normal Pupils: Equal, round and reactive pupils present and Pupil accommodation reflex normal EOM: EOMs intact bilaterally Neck: Neck: Yes normal visual inspection, Yes full ROM, Yes no lymphadenopathy, Yes trachea midline, Yes supple, No lymphadenopathy, No tender and No tracheal deviation Lymphatic: no lymphadenopathy noted Chest: Other: Left chest pacemaker site dressing is clean, dry, and intact. No visible drainage. No erythema, edema, or ecchymosis. No induration or swelling. Chest palpation & inspection: normal inspection of the chest and no crepitus Resp: Effort & Inspection: normal respiratory effort, able to speak in complete sentences, normal respiratory pattern, no audible wheezes, no cough, no pursed lip breathing, no respiratory distress, no stridor, not tachypneic, no tracheal deviation and other (Patient speaking in full sentences on room air. Chest tube to *waterseal/veras) Auscultation: clear to auscultation bilaterally Cardio: Jugular venous distension: no JVD Palpation: normal PMI Rate: regular rate Rhythm: regular rhythm Heart sounds: S1 normal heart sound present, S2 normal heart sound present, no click, no gallops, no murmurs and no rubs GI: Inspection: Yes normal to inspection Auscultation: normal bowel sounds : General: Yes no CVA tenderness Back/Spine/Pelvis: Back: no CVA tenderness Thoracic/Lumbar Spine: thoracic and lumbar spine normal to inspection Skin: General skin exam: no rashes or lesions noted and dry skin Lesions: no lesions Rashes: no rashes Neuro: General: oriented to person, oriented to place and gait normal Cranial nerves: Yes Equal, round and reactive pupils present Extrem: General: Yes normal to inspection, Yes full ROM, Yes capillary refill normal, Yes no clubbing, cyanosis or edema, Yes no pedal edema and Yes normal gait Psych: Appearance: grossly normal and well kempt Mental Status: mental status grossly normal Speech and movement: Normal speech and movement present and Clear speech present Affect: normal affect Attitude: cooperative Thought process: Normal thought process present Thought content: Normal thought content present Progress Note: A&P Assessment and plan (1) Complete heart block: Status: Acute Assessment and Plan: Patient is a 80-year-old male who was admitted to [facility] for mental status changes and was found to have a complete heart block on EKG and is POD# 1 s/p placement of dual chamber permanent pacemaker with fluoroscopic guidance with Dr. Sonya Whitten * Pacemaker interrogated this am. Passed. Telemetry strip reviewed, no evidence of arrythmias or pacemaker spikes. Heart rate maintaining in the 60's. * Patient should remain in arm sling for the next 2 days or until mental status is completely cleared with no evidence of confusion. * Assess pacemaker site daily for any evidence of erythema, ecchymosis, induration, or signs of infection. Physical exam today shows no evidence of infection * Patient should not lift arm above his shoulder or behind his back for 8 weeks * No lifting anything greater than 10-15 lbs for the first three weeks. No pushing, pulling, or twisting. * Patient should not wear clothes that rub on the wound for 2-3 weeks. * Patient may remove dressing to chest in two days. Keep incision dry for at least 4-5 days. Following this, he may shower and pat incision dry * Use caution around magnetic tiwari * Patient will have a follow-up appointment with Dr. Whitten in the Thoracic Surgery office at [facility] in 2 weeks for a post-op check. Patient should call once he is discharged to confirm appointment time and date. Case discussed with Dr. Whitten. Thank you for this consult. Please do not hesitate to call with any questions or concerns. Will sign-off at this time. Fall Risk Details Current Medications: Current Medications Generic Name Dose Route Start Last Admin Trade Name Freq PRN Reason Stop Dose Admin Sodium Chloride 3 ml 08/28/20 00:00 08/28/20 15:22 0.9 % Sodium Chloride Flush 3 Ml Syringe IVFLUSH 3 ml QSHIFT ABIOLA Administration Time Spent With Patient Time: Total time spent is greater than 50% in coordination of care (as documented) at patient's floor/unit and/or counseling patient: Time with patient: 15 - 24 minutes
[2020-08-29 03:42] VITALS: BP 134/85; PULSE 94; RESP 18; TEMP 36.4; O2SAT 96
--- NOTE | 2020-08-29 07:43 | PM.DS ---
DS: Providers Provider Date of admission: 08/27/20 19:26 Primary care physician: None Physician Consults: 08/28/20 23:13 Consult to Urology Routine Consulting Provider: [facility] Reason for consultation: urinary retention Has provider been notified: No DS: Diagnosis Discharge Diagnosis (1) Complete heart block: Status: Acute (2) Acute alteration in mental status: Status: Acute DS: Summary Hospital Course Hospital Course: HPI by ICU Chief Complaint: syncopal episode 80yo male who hasn't been to a doctor in years, was BIBA to the ED today after having a syncopal episode vs seizure witnessed by his . Upon arrival to the ED, pt was found to be in complete heart block, Dr Zamora saw pt in the ED, thoracic surgery was called to place a PPM. While in the ED, pt became very agitated, HR was 23bpm, pt rec'd atropine. Patient agitated again, BP dropping, altered, HR in 20s - intubated and cutaneous pacing with good success rate 70, ma 68 for consistent capture, good pulses, BP 120/86. 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 Labs notable for platelets 136, BNP 244 and lactic acid 5.2 then 1.9, likely elevated 2/2 severe agitation while in ED. All other labs unremarkable. Hospital course: Patient was intubated due to syncope from complete heart block and underwent pacemaker insertion by Dr. Whitten. Patient did well. Pace maker interogated the next day without any issue. He will follow up with thoracic surgery service and cardiology upon discharge. He experienced urinary retention and urology consultation requested Time Spent with Patient Time attestation: Total time spent providing and/or coordinating discharge services: Physical Exam Vital Signs: Vital Signs: Vital Signs Temp Pulse Resp BP Pulse Ox 08/29/20 03:42 97.5 F 94 18 134/85 96 08/28/20 23:14 97.8 F 94 18 119/92 H 94 08/28/20 19:17 97.5 F 97 18 123/62 97 08/28/20 15:47 97.2 F 73 20 123/73 94 08/28/20 12:00 98.6 F 68 20 110/64 95 08/28/20 08:45 96/56 L 08/28/20 08:22 71 90/44 L 08/28/20 08:00 99.0 F 68 19 88/48 L 93 Body Mass Index 24.3 General: AO X 2, no acute distress Resp: CTA bilateral CVS: S1,S2,RRR GI: +BS, NT, no distention Skin: No rash Neuro: motor grossly intact Psych: appropriate affect DS: Data Data Completed and Pending Labs on day of discharge: Labs from last 24 hours 08/28/20 08/27/20 05:37 13:52 WBC 10.6 RBC 4.32 L Hgb 13.0 L Hct 42.6 MCV 98.6 H MCH 30.1 MCHC 30.5 L RDW 14.3 Plt Count 94 L D Immature Gran % (Auto) 0.3 Neut % (Auto) 80.5 H Lymph % (Auto) 7.3 L [place] % (Auto) 10.5 Eos % (Auto) 1.0 Baso % (Auto) 0.4 Lymph # (Auto) 0.8 L [place] # (Auto) 1.1 Eos # (Auto) 0.1 Baso # (Auto) 0.0 Abs Immat Gran (auto) 0.03 Absolute Neuts (auto) 8.5 H Absolute Nucleated RBC 0.000 Nucleated RBC % (auto) 0.0 Smear Tech's Comments VERIFIED POC Glucose 127 H Preliminary micro results at discharge 08/27/20 15:03 Blood Culture - Preliminary Blood - Venous No growth after 24 hours. 08/27/20 14:53 Blood Culture - Preliminary Blood - Venous No growth after 24 hours. Discharge Plan Discharge Anticipated Discharge Date/Time: 08/29/20 10:38 Patient Disposition: Home, Self-Care Referrals: Physician,None [Primary Care Provider] - Discharge Medications: No Action No Known Home Meds RF: 0 Diet: advance to your usual diet Activity on Discharge: As tolerated Visit Report Forms: Patient Portal Discharge page Care Plan Goals: Prevent syncope from heart block Health Concerns: None acute concern at this time Plan of Treatment: Follow pacemaker instruction and follow up with thoracic surgery Assess pacemaker site daily for any evidence of erythema, ecchymosis, induration, or signs of infection. Patient should not lift arm above his shoulder or behind his back for 8 weeks No lifting anything greater than 10-15 lbs for the first three weeks. No pushing, pulling, or twisting. Patient should not wear clothes that rub on the wound for 2-3 weeks. Patient may remove dressing to chest in two days. Keep incision dry for at least 4-5 days. Following this, he may shower and pat incision dry Use caution around magnetic tiwari Patient will have a follow-up appointment with Dr. Whitten in the Thoracic Surgery office at [facility] in 2 weeks for a post-op check. Patient should call once he is discharged to confirm appointment time and date.
[2020-08-29 08:00] VITALS: BP 144/82; PULSE 98; RESP 18; TEMP 36.6; O2SAT 95
--- NOTE | 2020-08-29 08:48 | MHC.CM.PN ---
Pt to discharge home today with no services. Family to transport
[2020-08-29] MEDS: 0.9 % Sodium Chloride Flush 3 ML SYRINGE IVFLUSH ×2 (08:50→15:55)
[2020-08-29 12:00] VITALS: BP 141/90; PULSE 90; RESP 18; TEMP 36.3; O2SAT 95
[2020-08-29 15:11] VITALS: BP 147/83; PULSE 88; RESP 20; TEMP 36.8; O2SAT 95
--- NOTE | 2020-08-29 16:52 | PM.UROCN ---
History of Present Illness Consult details Narrative: 80-year-old male Admitted for cardiac related issues. Pacemaker placed 08/28/2020 Found to have urinary retention following procedure. A 1000 cc on the catheter placement. No home medications for BPH Patient denies other issues with prostate and bladder emptying Pham catheter placed Will start finasteride and tamsulosin. Can follow up next week for catheter removal Can be taught how to use a Pham catheter plug. Can use large back at nighttime. Review of Systems Constitutional: Constitutional: Denies chills and Denies fever(s) Cardiovascular: Cardiovascular: Reports no additional cardiovascular complaints and Denies syncope Respiratory: Respiratory: Denies cough Gastrointestinal: Gastrointestinal: Denies abdominal pain and Denies heartburn Genitourinary: Genitourinary: Reports as per HPI and Denies change in libido Neurologic: Denies syncope Psychiatric: Psychiatric: Denies change in libido Endocrine: Endocrine: Denies change in libido ON LICENSE OF [facility] Past Medical History Medical History No known problems Functional capacity: independent ambulation Social History Social History Household Members: Spouse Housing: House Do you presently have visiting nurse or other home services: No Alcohol intake: never Smoking Status: Never smoker Use of substances other than those prescribed or required for medical reasons: No Currently Displaying Signs/Symptoms of Drug Intoxication Withdrawal: No Advance Directives: No Advance Directives Information Provided: Yes Do you have thoughts of harming others: None Do you have a plan to hurt others: No Plan Recently lost weight without trying: No service: Yes Current occupational status: retired Meds Allergies Allergy/AdvReac Type Severity Reaction Status Date / Time No Known Allergies Allergy Verified 08/27/20 13:56 Home Medications Medication Instructions Recorded Confirmed Type No Known Home Meds 08/27/20 08/27/20 History Physical Exam Vital Signs: Vital Signs: Last Vital Signs Temp 98.3 F 08/29/20 15:11 Pulse 88 08/29/20 15:11 Resp 20 08/29/20 15:11 BP 147/83 H 08/29/20 15:11 Pulse Ox 95 08/29/20 15:11 Body Mass Index 24.3 Const: General: cooperative, healthy appearing, comfortable and no acute distress Nutritional Appearance: average body habitus Orientation/consciousness: oriented to person, oriented to place and oriented to time Eyes: General: appearance normal, both eyes and all related structures Chest: Chest palpation & inspection: normal inspection of the chest Resp: Effort & Inspection: normal respiratory effort Cardio: Rate: regular rate GI: Inspection: Yes normal to inspection Skin: Hair: normal Neuro: General: oriented to person, oriented to place and oriented to time Extrem: General: Yes normal to inspection Results Labs Result diagrams: 08/28/20 05:37 08/28/20 05:37 Labs: Urine 08/27/20 Range/Units 15:14 Urine Color YELLOW Urine Appearance CLEAR Urine pH 6.0 (5.0-8.0) Ur Specific [place] 1.020 (1.005-1.025) Urine Protein NEG (NEG-TRACE) MG/DL Urine Glucose (UA) NEG (NEG) MG/DL All other labs normal. Assessment and Plan (1) Urinary retention with incomplete bladder emptying: Status: Acute Can be taught how to use a catheter plug Large bag for overnight Follow-up with Urology next week for voiding trial
== END 2020-08-29 18:02 | disposition home or self-care (01) | DRG 244 ==
LOC: HO.ED 16:33 → HO.SSS 18:20 → HO.ICU 19:36 → HO.IMC 08-28 09:43
PROVIDERS: Physician Assistant; Admitting Provider Anesthesiology; Emergency Provider Emergency Medicine; Visit Provider Surgery
PROC: 0JH606Z Insertion of Pacemaker, Dual Chamber into Chest Subcutaneous Tissue and Fascia, Open Approach (ICD-10-PCS; principal; 2020-08-27)
DX: I44.2 Atrioventricular block, complete (principal); Z20.828 Contact with and (suspected) exposure to other viral communicable diseases; R33.8 Other retention of urine
CPT/HCPCS: 36415; 70450; 71045; 71275; 80048; 80053; 80307; 80320; 81001; 82140; 82310; 82550; 82803; 82947; 83605; 83735; 83880; 84484; 85025; 85610; 85730; 87040; 93005; 94003; 96365; 96372; 96375; 96376; 99232; 99285; 99291; 99292; C1758; C1785; C1892; J0171; J0461; J0690; J2060; J2250; J2370; J3010; J3370; U0003

== ENCOUNTER → 2020-09-04 11:03 | Outpatient (BNVA) | payer MEDICARE, OTHER, SELFPAY | PROVIDERS: Visit Provider Urology | DX: Z76.89 Persons encountering health services in other specified circumstances (principal) | CPT/HCPCS: 99212 ==

== ENCOUNTER → 2020-09-13 12:44 | Outpatient (BNVA) | payer MEDICARE, OTHER, SELFPAY | PROVIDERS: Visit Provider Surgery | DX: I44.2 Atrioventricular block, complete (principal); Z45.018 Encounter for adjustment and management of other part of cardiac pacemaker | CPT/HCPCS: 99212 ==

== ENCOUNTER 2020-09-25 20:38 | Inpatient (IN) | payer MEDICARE, OTHER, SELFPAY ==
[2020-09-25 20:47] VITALS: BP 140/95; PULSE 116; RESP 20; TEMP 37.8; O2SAT 96
[2020-09-25 20:49] VITALS: BP 140/95; BP 148/98; PULSE 106; PULSE 126; RESP 30; TEMP 37.8; O2SAT 95; O2SAT 96; BMI 24.3
[2020-09-25 21:00] VITALS: BP 125/86; PULSE 95; RESP 22; O2SAT 94
--- NOTE | 2020-09-25 21:03 | ECG_ITS ---
Test Reason : WEAKNESS Blood Pressure : / mmHG Vent. Rate : 116 BPM Atrial Rate : 116 BPM P-R Int : 140 ms QRS Dur : 162 ms QT Int : 380 ms P-R-T Axes : 069 -60 108 degrees QTc Int : 528 ms Sinus tachycardia with Ventricular-paced rhythm Abnormal ECG When compared with ECG of 27-AUG-2020 13:55, Ventricular-paced rhythm has replaced complete heart block Referred By: Carline Dumont Electronically Signed By:MANISH SOTO MD
--- NOTE | 2020-09-25 21:03 | XR_ITS ---
EXAMINATION: XR CHEST CLINICAL INFORMATION: Cough. COMPARISON: 08/27/2020 TECHNIQUE: Frontal view of the chest was obtained. FINDINGS: Left pectoral pacemaker with dual leads. Interval removal of the endotracheal tube and the enteric tube. Normal heart size. Annalise are stable. Low lung volumes. There is a round 2.6 x 2.1 cm airspace opacity in the peripheral aspect of the right lower lung, as seen on the prior CT of 08/27/2020. There is otherwise interstitial prominence in the lung bases. Patchy opacities in the right lung base has improved as compared to previous. No effusion, edema or pneumothorax. XR/XR chest 1V IMPRESSION: Nodular opacity in the right lower lobe peripheral aspect of right lower lobe measuring 2.6 x 2.1 cm. This was seen on the prior CT scan of 08/27/2020. Improving patchy airspace opacities in the right lower lung.
--- NOTE | 2020-09-25 21:04 | ED_ITS ---
HPI - Weakness General Chief complaint: Weakness Stated complaint: general weakness Time Seen by Provider: 09/25/20 21:03 Source: patient Mode of arrival: EMS Limitations: no limitations History of Present Illness HPI Narrative: This is a 80-year-old male who is brought in by EMS from home after having fallen twice today without striking his head and denies any loss of consciousness. He states he has had increased weakness over the past couple of days but denies any fevers, chills, nausea, vomiting, GI symptoms. However, patient does endorse that his has been bothering him about not eating enough food. Of significance, patient has been recently treated for complete heart block with the placement of a pacemaker. Related Data Previous Rx's Medication Instructions Recorded tamsulosin 0.4 mg capsule 0.4 mg PO BEDTIME #30 cap 09/04/20 Allergies Allergy/AdvReac Type Severity Reaction Status Date / Time Penicillins Allergy Anaphylaxis Verified 09/26/20 00:14 Review of Systems Review of Systems: Pertinent positives and negatives as stated in HPI and 10 point review of systems is otherwise negative. PMFSH Past Medical History Source: nursing notes reviewed Medical History Complete heart block No known problems Pacemaker Social History Social History Household Members: Spouse Housing: House Alcohol intake: never Smoking Status: Never smoker Use of substances other than those prescribed or required for medical reasons: No Advance Directives: No Advance Directives Information Provided: No service: Yes Current occupational status: retired Physical Exam Vital Signs: Vital Signs: Last Vital Signs Temp 97.5 F 09/26/20 00:45 Pulse 104 H 09/26/20 04:03 Resp 20 09/26/20 04:03 BP 110/77 09/26/20 04:03 Pulse Ox 96 09/26/20 04:03 Body Mass Index 24.3 VITAL SIGNS: Reviewed. GENERAL: Well developed, well nourished, in no acute distress. HEAD: Normocephalic/atraumatic, EYES: PERRLA, EOMI intact without pain, no nystagmus/pallor/icterus noted EARS: Ext canals without abnormality, TMs non-bulging and non-erythematous NOSE: Nares patent bilateral OROPHARYNX: no oral lesions noted, posterior pharynx clear and non-erythematous without noted tonsillar enlargement/erythema/exudates NECK: Supple, no adenopathy LUNGS: Normal breath sounds. No adventitious sounds or accessory muscle use. SpO2<96>; CHEST WALL: There is a well-healed incision where the pacemaker has been placed without any evidence of erythema or induration. CARDIOVASCULAR: Regular rate and rhythm without noted murmurs, no JVD or lower extremity edema. ABDOMEN: Soft, patient is noted to be tender on palpation over the suprapubic area, non-distended with bowel sounds. No rigidity. No guarding. No palpable masses or hernias noted MUSCULOSKELETAL: No tenderness, deformities, or effusions noted on gross inspection. EXTREMITIES: No cyanosis, clubbing or edema. SKIN: Inspection of the skin reveals no rashes, ulcerations, jaundice, pallor, or petechiae. NEUROLOGIC: Alert and oriented x 4. Strength and sensation to light touch were grossly intact x 4. Course Course Course Narrative: This is a 80-year-old male with history and clinical pre sentation initially concerning for sepsis due to the heart rate, and tachypnea and proceeded with blood cultures, lactic acid. However on continued evaluation despite the mild leukocytosis it became clear that patient was likely having SIRS secondary to an over-distended bladder containing over 1 L by bladder scan with resulting EMILY. Therefore sepsis IV fluids were withheld at this time to prevent further distention of the bladder. He did receive antibiotics. Multiple attempts were made to place the Pham catheter without success and the decision was made to perform a CT scan on patient's abdomen which identified a significantly sized prostate, enlarged bladder, and thickening of the cecum raising concerns for possible mass (recommendation for colonoscopy ). in addition there was a noted fluid-filled appendix measuring 0.9 cm in diameter with subtle adjacent stranding. Dr. Medrano arrived and was able to place an 18 Irish coude catheter and discuss case with inpatient hospitalist team who is agreeable for admission. Reevaluation(s) Reevaluation #1: I spoke with Dr. Cruz regarding patient's urinary retention and the inability to get catheter placement with good urine drainage despite initial return of clear yellow urine. He agrees with CT scan to evaluate for any anatomical abnormalities. Time: 01:20 Reevaluation #2: Dr. Cruz notified regarding condition of prostate and will be coming into the emergency department for intervention. Time: 01:57 Reevaluation #3: Call out to Surgery for dilated appendix and thickened cecum, Dr Meeks will see in AM. Time: 03:50 MDM - Weakness Lab Data Result diagrams: 09/25/20 21:34 09/25/20 21:34 Labs: Lab Results 09/25/20 09/25/20 09/25/20 Range/Units 21:34 21:34 21:34 WBC 12.1 H (4.8-10.8) X10*3/uL RBC 4.23 L (4.60-5.80) X10*6/uL Hgb 12.4 L (14.0-18.0) g/dl Hct 38.2 L (42-52) % MCV 90.3 (80-98) fL MCH 29.3 (27.0-33.0) pg MCHC 32.5 (31.0-36.0) g/dl RDW 13.8 (11.0-16.0) % Plt Count 108 L (160-400) X10*3/uL MPV Not Reportable Immature Gran % (Auto) 0.6 H (0.0-0.4) % Neut % (Auto) 86.3 H (45-73) % Lymph % (Auto) 2.3 L (20-40) % [place] % (Auto) 10.5 (2-11) % Eos % (Auto) 0.1 (0-4) % Baso % (Auto) 0.2 (0-2) % Lymph # (Auto) 0.3 L (1.2-4.9) X10*3/uL [place] # (Auto) 1.3 H (0.1-1.2) X10*3/uL Eos # (Auto) 0.0 (0.0-0.4) X10*3/uL Baso # (Auto) 0.0 (0.0-0.2) X10*3/uL Abs Immat Gran (auto) 0.07 H (0.00-0.03) X10*3/uL Absolute Neuts (auto) 10.4 H (2.0-8.3) X10*3/uL Absolute Nucleated RBC 0.000 (0.0-0.012) X10*3/uL Nucleated RBC % (auto) 0.0 (0.0-0.2) /100WBC Smear Tech's Comments VERIFIED Sodium 137 (135-145) mmol/L Potassium 3.8 (3.3-5.1) mmol/l Chloride 103 (96-108) mmol/L Carbon Dioxide 21 L (22-29) mmol/L Anion Gap 17 (12-20) BUN 21 H D (9-16) mg/dL Creatinine 1.20 (0.5-1.4) mg/dL Estim Creat Clear Calc 61.2 Estimated GFR 58 Random Glucose 125 H D (60-115) mg/dL Lactic Acid 1.2 (0.5-2.0) mmol/L Calcium 8.4 (8.4-10.2) mg/dL Total Bilirubin 1.3 H (0.0-1.0) mg/dL AST 14 (5-37) U/L ALT 9 (0-40) U/L Alkaline Phosphatase 73 (39-117) U/L Troponin I High Sens (<3.5-35.0) ng/L B-Natriuretic Peptide (<100) pg/mL Total Protein 6.3 L (6.5-8.0) g/dL Albumin 3.6 (3.5-5.0) g/dL Urine Color Urine Appearance Urine pH (5.0-8.0) Ur Specific [place] (1.005-1.025) Urine Protein (NEG-TRACE) MG/DL Urine Glucose (UA) (NEG) MG/DL Urine Ketones (NEG) MG/DL Urine Blood (NEG) Urine Nitrite (NEG) Ur Leukocyte Esterase (NEG) Urine RBC (0) /HPF Urine WBC (0-4) /HPF Ur Squamous Epith Cells /LPF Urine Bacteria /LPF Urine Mucus /LPF Coronavirus (PCR) (Negative) Influenza Type A (PCR) (Negative) Influenza Type B (PCR) (Negative) RSV RNA Qual (PCR) (Negative) 09/25/20 09/25/20 09/26/20 Range/Units 21:34 23:42 02:59 WBC (4.8-10.8) X10*3/uL RBC (4.60-5.80) X10*6/uL Hgb (14.0-18.0) g/dl Hct (42-52) % MCV (80-98) fL MCH (27.0-33.0) pg MCHC (31.0-36.0) g/dl RDW (11.0-16.0) % Plt Count (160-400) X10*3/uL MPV Immature Gran % (Auto) (0.0-0.4) % Neut % (Auto) (45-73) % Lymph % (Auto) (20-40) % [place] % (Auto) (2-11) % Eos % (Auto) (0-4) % Baso % (Auto) (0-2) % Lymph # (Auto) (1.2-4.9) X10*3/uL [place] # (Auto) (0.1-1.2) X10*3/uL Eos # (Auto) (0.0-0.4) X10*3/uL Baso # (Auto) (0.0-0.2) X10*3/uL Abs Immat Gran (auto) (0.00-0.03) X10*3/uL Absolute Neuts (auto) (2.0-8.3) X10*3/uL Absolute Nucleated RBC (0.0-0.012) X10*3/uL Nucleated RBC % (auto) (0.0-0.2) /100WBC Smear Tech's Comments Sodium (135-145) mmol/L Potassium (3.3-5.1) mmol/l Chloride (96-108) mmol/L Carbon Dioxide (22-29) mmol/L Anion Gap (12-20) BUN (9-16) mg/dL Creatinine (0.5-1.4) mg/dL Estim Creat Clear Calc Estimated GFR Random Glucose (60-115) mg/dL Lactic Acid (0.5-2.0) mmol/L Calcium (8.4-10.2) mg/dL Total Bilirubin (0.0-1.0) mg/dL AST (5-37) U/L ALT (0-40) U/L Alkaline Phosphatase (39-117) U/L Troponin I High Sens 27.2 (<3.5-35.0) ng/L B-Natriuretic Peptide 205 H (<100) pg/mL Total Protein (6.5-8.0) g/dL Albumin (3.5-5.0) g/dL Urine Color YELLOW Urine Appearance CLOUDY Urine pH 6.0 (5.0-8.0) Ur Specific [place] 1.020 (1.005-1.025) Urine Protein TRACE (NEG-TRACE) MG/DL Urine Glucose (UA) NEG (NEG) MG/DL Urine Ketones NEG (NEG) MG/DL Urine Blood 3+ H (NEG) Urine Nitrite NEG (NEG) Ur Leukocyte Esterase 3+ H (NEG) Urine RBC 76-150 H (0) /HPF Urine WBC TNTC H (0-4) /HPF Ur Squamous Epith Cells 1+ /LPF Urine Bacteria 3+ /LPF Urine Mucus 2+ /LPF Coronavirus (PCR) NEGATIVE (Negative) Influenza Type A (PCR) NEGATIVE (Negative) Influenza Type B (PCR) NEGATIVE (Negative) RSV RNA Qual (PCR) NEGATIVE (Negative) ECG Data Attestation: I personally reviewed and interpreted this ECG as follows: Prior ECG tracings: available for review ( However this EKG on 08/28/2029 was while patient was a known third-degree AV block) Interpretation: this is a paced rhythm with ventricular rate of 116 Discharge Plan Discharge Clinical Impression: EMILY (acute kidney injury), Acute urinary retention, Appendix disease Sepsis Qualifiers: Sepsis type: sepsis due to unspecified organism Sepsis acute organ dysfunction status: with acute organ dysfunction Severe sepsis acute organ dysfunction type: acute renal failure Acute renal failure type: unspecified Severe sepsis shock status: without septic shock Qualified Code(s): A41.9 - Sepsis, unspecified organism Patient Disposition: Admitted As Inpatient
[2020-09-25 21:20] VITALS: BP 127/84; PULSE 90; RESP 20; O2SAT 94
[2020-09-25 21:45] LABS: Basophils Percent Auto 0.2 % (0-2); Eosinophils Percent Auto 0.1 % (0-4); MANUAL DIFF FLAG SCAN; Mean Corpuscular Volume 90.3 fL (80-98); Monocytes Absolute Auto 1.3 X10*3/uL (0.1-1.2); Monocytes Percent Auto 10.5 % (2-11); Neutrophils Percent Auto 86.3 % (45-73); SCAN SMEAR FLAG 1
[2020-09-25 21:47] LABS: Hematocrit 38.2 % (42-52); Hemoglobin 12.4 g/dl (14.0-18.0); Imm Gran Abs Auto 0.07 X10*3/uL (0.00-0.03); Imm Gran Pct Auto 0.6 % (0.0-0.4); Lymphocytes Absolute Auto 0.3 X10*3/uL (1.2-4.9); Lymphocytes Percent Auto 2.3 % (20-40); Mean Corpuscular HGB Conc 32.5 g/dl (31.0-36.0); Mean Corpuscular Hemoglobin 29.3 pg (27.0-33.0); Neutrophils Absolute Auto 10.4 X10*3/uL (2.0-8.3); Platelet Count 108 X10*3/uL (160-400); Red Blood Count 4.23 X10*6/uL (4.60-5.80); Red Cell Distribution Width 13.8 % (11.0-16.0); White Blood Count 12.1 X10*3/uL (4.8-10.8)
[2020-09-25 21:58] LABS: PLT ABN DIST 1
[2020-09-25 22:05] LABS: SLIDE REVIEW VERIFIED
[2020-09-25 22:08] LABS: Lactic Acid 1.2 mmol/L (0.5-2.0)
[2020-09-25 22:15] LABS: Troponin-I High Sensitivity 27.2 ng/L (<3.5-35.0)
[2020-09-25 22:19] LABS: Alanine Aminotransferase 9 U/L (0-40); Albumin Level 3.6 g/dL (3.5-5.0); Alkaline Phosphatase 73 U/L (39-117); Anion Gap 17 (12-20); Aspartate Amino Transferase 14 U/L (5-37); Bilirubin Total 1.3 mg/dL (0.0-1.0); Blood Urea Nitrogen 21 mg/dL (9-16); Calcium 8.4 mg/dL (8.4-10.2); Carbon Dioxide 21 mmol/L (22-29); Chloride 103 mmol/L (96-108); Creatinine Clr Calc Pharmacy 61.2; Estimated Glomerular Filt Rate 58; Glucose Random 125 mg/dL (60-115); Potassium 3.8 mmol/l (3.3-5.1); Sodium 137 mmol/L (135-145); Total Protein 6.3 g/dL (6.5-8.0)
[2020-09-25] MEDS: Acetaminophen 325 MG TABLET 975 MG PO (22:37)
[2020-09-25 23:25] LABS: B Type Natriuretic Peptide 205 pg/mL (<100)
[2020-09-25 23:58] LABS: Glucose Urine UA NEG (NEG); Leukocyte Esterase Urine 3+ (NEG); Nitrite Urine NEG (NEG); Urine Blood 3+ (NEG); Urine Ketones NEG (NEG); Urine Protein TRACE MG/DL (NEG-TRACE)
[2020-09-26] VITALS (9 sets, daily range): BP systolic 109–159; BP diastolic 64–83; PULSE 60–104; RESP 16–22; TEMP 36.4–37.1; O2SAT 95–98
[2020-09-26 00:13] LABS: Appearance Urine CLOUDY; Color Urine YELLOW
[2020-09-26 00:20] LABS: Bacteria Urine 3+ /LPF; Mucus Urine 2+ /LPF; Squamous Epithelial Cell Urine 1+ /LPF; WBC Urine TNTC /HPF (0-4)
[2020-09-26] MEDS: cefTRIAXone sodium 1 GM in 0.9 % Sodium Chloride 50 ML IV (00:41)
--- NOTE | 2020-09-26 01:13 | CT_ITS ---
EXAMINATION: CT ABDOMEN AND PELVIS WITH CONTRAST CLINICAL INFORMATION: Lower abdominal pain COMPARISON: None TECHNIQUE: Multidetector volumetric images were obtained from the superior aspect of the liver through the pubic symphysis following administration of 85 mL of Omnipaque 350 intravenous contrast. Sagittal and coronal reformatted images were obtained on the technologist's workstation. Oral contrast: No This CT examination was performed using dose optimization techniques as appropriate, variously including the following: *Automated exposure control *Adjustment of mA and/or kV according to patient size (this includes techniques or standardized protocols for targeted exams where dose is matched to indication/reason for exam; i.e. extremities or head) *Use of iterative reconstruction technique DLP: 1836 mGy-cm FINDINGS: Limited assessment due to patient motion artifact. LUNG BASES: Moderate emphysema is present. There is a lobulated right lower lobe nodule measuring up to 2.3 cm in diameter, unchanged from recent chest CT 11/27/2019. A left lower lobe nodule measuring 1.0 cm in diameter also appears unchanged. LIVER, GALLBLADDER, AND BILIARY TREE: The liver is normal in size, shape, and attenuation. No focal hepatic lesion or biliary ductal dilatation is present. The gallbladder is grossly unremarkable. PANCREAS: Unremarkable. SPLEEN: Unremarkable. ADRENAL GLANDS: Unremarkable. KIDNEYS AND URETERS: The kidneys are normal in size, shape, and attenuation. Mild bilateral hydroureteronephrosis without obstructing calculus. Small hypodensities in the left kidney are suggestive of cysts. Mild bilateral perinephric stranding. BLADDER: Distended, with diffuse wall thickening. Several tiny foci of gas are noted anteriorly. 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 No evidence of bowel obstruction. There is colonic diverticulosis without convincing diverticulitis. There is a thick-walled appearance of the cecum, raising concern for underlying mass. The appendix is fluid-filled and measures 0.9 cm in diameter, with subtle adjacent stranding. No free fluid or free air is seen. ABDOMINAL WALL: Bilateral fat-containing inguinal hernias noted. LYMPH NODES: Normal. VASCULAR: Scattered atherosclerotic calcifications. PELVIC VISCERA: The prostate gland is enlarged, measuring 8.0 cm in transverse diameter. OSSEOUS STRUCTURES: Degenerative changes noted in the spine. CT/CT abdomen pelvis w con IMPRESSION: 1. Limited assessment due to patient motion artifact. Distended, thick-walled urinary bladder. This could reflect sequelae of chronic bladder outlet obstruction, as the prostate gland is significantly enlarged. Mild bilateral hydroureteronephrosis is also noted. 2. Thick-walled appearance of the cecum, raising suspicion for underlying mass. Correlation with colonoscopy is recommended. 3. Mildly dilated, fluid-filled appendix. Subtle adjacent stranding is present. Appearance could be reactive to the cecal wall thickening, though primary appendicitis would be difficult to entirely exclude in the proper clinical setting. 4. Bilateral lung nodules redemonstrated, unchanged from 08/27/2020. Given the suspicious cecal wall thickening, these could reflect metastases.
[2020-09-26] MEDS: iohexoL 350 MG/ML 100 ML INFUS..BTL 85 ML IV (02:03)
[2020-09-26 03:49] LABS: Influenza A PCR NEGATIVE (Negative); Influenza B PCR NEGATIVE (Negative); Resp Syncy Virus RNA Qual PCR NEGATIVE (Negative); SARS COV2 PCR INHOUSE NEGATIVE (Negative)
--- NOTE | 2020-09-26 04:25 | P.CNUR_ITS ---
History of Present Illness Consult details Consult date: 09/26/20 Narrative: 80-year-old male Found to have urinary retention with UTI 1200cc after catheterization Similar episode a month ago Did not start prostate medications Patient denies other issues with prostate and bladder emptying Pham catheter placed Will start finasteride and tamsulosin PMFSH Past Medical History Medical History Complete heart block No known problems Pacemaker Social History Social History Household Members: Spouse Housing: House Alcohol intake: never Smoking Status: Never smoker Use of substances other than those prescribed or required for medical reasons: No Advance Directives: No Advance Directives Information Provided: No service: Yes Current occupational status: retired [employer] Allergies Allergy/AdvReac Type Severity Reaction Status Date / Time Penicillins Allergy Anaphylaxis Verified 09/26/20 00:14 Physical Exam Vital Signs: Vital Signs: Last Vital Signs Temp 97.5 F 09/26/20 00:45 Pulse 104 H 09/26/20 04:03 Resp 20 09/26/20 04:03 BP 110/77 09/26/20 04:03 Pulse Ox 96 09/26/20 04:03 Body Mass Index 24.3 Const: General: cooperative, healthy appearing, comfortable and no acute distress Nutritional Appearance: average body habitus Orientation/consciousness: oriented to person, oriented to place and oriented to time Eyes: General: appearance normal, both eyes and all related structures Chest: Chest palpation & inspection: normal inspection of the chest Resp: Effort & Inspection: normal respiratory effort Cardio: Rate: regular rate GI: Inspection: Yes normal to inspection Skin: Hair: normal Neuro: General: oriented to person, oriented to place and oriented to time Extrem: General: Yes normal to inspection Results Labs Result diagrams: 09/25/20 21:34 09/25/20 21:34 Labs: Abnormal lab results 09/25/20 09/25/20 09/25/20 Range/Units 21:34 21:34 21:34 WBC 12.1 H (4.8-10.8) X10*3/uL RBC 4.23 L (4.60-5.80) X10*6/uL Hgb 12.4 L (14.0-18.0) g/dl Hct 38.2 L (42-52) % Plt Count 108 L (160-400) X10*3/uL Immature Gran % (Auto) 0.6 H (0.0-0.4) % Neut % (Auto) 86.3 H (45-73) % Lymph % (Auto) 2.3 L (20-40) % Lymph # (Auto) 0.3 L (1.2-4.9) X10*3/uL [place] # (Auto) 1.3 H (0.1-1.2) X10*3/uL Abs Immat Gran (auto) 0.07 H (0.00-0.03) X10*3/uL Absolute Neuts (auto) 10.4 H (2.0-8.3) X10*3/uL Carbon Dioxide 21 L (22-29) mmol/L BUN 21 H D (9-16) mg/dL Random Glucose 125 H D (60-115) mg/dL Total Bilirubin 1.3 H (0.0-1.0) mg/dL B-Natriuretic Peptide 205 H (<100) pg/mL Total Protein 6.3 L (6.5-8.0) g/dL Urine Blood (NEG) Ur Leukocyte Esterase (NEG) Urine RBC (0) /HPF Urine WBC (0-4) /HPF 09/25/20 Range/Units 23:42 WBC (4.8-10.8) X10*3/uL RBC (4.60-5.80) X10*6/uL Hgb (14.0-18.0) g/dl Hct (42-52) % Plt Count (160-400) X10*3/uL Immature Gran % (Auto) (0.0-0.4) % Neut % (Auto) (45-73) % Lymph % (Auto) (20-40) % Lymph # (Auto) (1.2-4.9) X10*3/uL [place] # (Auto) (0.1-1.2) X10*3/uL Abs Immat Gran (auto) (0.00-0.03) X10*3/uL Absolute Neuts (auto) (2.0-8.3) X10*3/uL Carbon Dioxide (22-29) mmol/L BUN (9-16) mg/dL Random Glucose (60-115) mg/dL Total Bilirubin (0.0-1.0) mg/dL B-Natriuretic Peptide (<100) pg/mL Total Protein (6.5-8.0) g/dL Urine Blood 3+ H (NEG) Ur Leukocyte Esterase 3+ H (NEG) Urine RBC 76-150 H (0) /HPF Urine WBC TNTC H (0-4) /HPF Short CBC 09/25/20 Range/Units 21:34 WBC 12.1 H (4.8-10.8) X10*3/uL Hgb 12.4 L (14.0-18.0) g/dl Hct 38.2 L (42-52) % Plt Count 108 L (160-400) X10*3/uL BMP 09/25/20 21:34 Sodium 137 Potassium 3.8 Chloride 103 Carbon Dioxide 21 L BUN 21 H D Creatinine 1.20 Calcium 8.4 Liver Function 09/25/20 Range/Units 21:34 Total Bilirubin 1.3 H (0.0-1.0) mg/dL AST 14 (5-37) U/L ALT 9 (0-40) U/L Alkaline Phosphatase 73 (39-117) U/L Albumin 3.6 (3.5-5.0) g/dL Urine 09/25/20 Range/Units 23:42 Urine Color YELLOW Urine Appearance CLOUDY Urine pH 6.0 (5.0-8.0) Ur Specific [place] 1.020 (1.005-1.025) Urine Protein TRACE (NEG-TRACE) MG/DL Urine Glucose (UA) NEG (NEG) MG/DL All other labs normal. Assessment and Plan (1) Urinary retention with incomplete bladder emptying: Status: Acute (2) Complicated urinary tract infection: Status: Acute catheter placed should stay 7 days abx started Procedures Catheter Insertion (Urinary) Date of insertion: 09/26/20 Time of insertion: 04:28 Replacement of catheter present on admission: No Reason for placing: Acute urinary retention Bladder scan/ultrasound used before catheterization: Yes Estimated amount of urine (mLs): 1,000 Antiseptic solution prep: Povidone-Iodine Topical anesthesia used: Yes Catheter type/location: 2-way Urethral Size (Slovenian): 18 Catheter balloon size (mL): 30 Results: successfully catheterized-immediate flow Comment: 1200cc residual
[2020-09-26] MEDS: 0.9 % Sodium Chloride 1,000 ML 999 ML IV ×2 (04:46)
--- NOTE | 2020-09-26 06:08 | PM.IMHP ---
History of Present Illness Date of Service: 09/26/20 Chief Complaint: Fall 80 y/o male who presented from home s/p fall due to generalized weakness. Per history provided by the ED (as patient is very poor historian and with cognitive impairment at present), today patient had 2 falls of unclear circumstances and was not able to stand up from the floor last time and was unable to get him up for what she called EMS. Patient reported that since the past couple of days has been having worsening generalized weakness and having poor appetite. On presentation patient was found to be tachycardic, tachypneic with a BP of 140/95 mmHg and Temp of 100.1. WBC of 12.1 and UA postiive for UTI. 2.5 liters of NS given per ED initially as well as one dose of rocephin (with no allergic reaction despite patient have hx of penicillin allergy). Bladder scan showed >1 liter retention of urine in the bladder, Urology contacted for de souza insertion Dr Cruz who inserted de souza and recommended patient to be admitted under medicine and he will follow up. CT abdomen was obtained per ED which showed multiple findings including: distended bladder with evidence of bilateral hydronephrosis, cecum mas, bilateral pulmonary nodules which was present in the past but is raising questions for possible mets in lieu of the mass in the cecum, swelling of the appendix which is suspicious for appendicitis. General Surgery numerical control lathe operator contacted per ED attending who suggests that appendicitis is unlikely but will follow up in the am. Decision for admission given. Patient seen and examined at the bedside, laying down in bed in no acute distress. ROS as above otherwise negative. Physical exam positive for de souza insertion draining urine adequately (400 ml in bag), AAOx2 (name and place). Was noticed that patient was previously admitted to our facility due to complete heart block and had PPM insertion successfully. PMHX: BPH, Complete heart block s/p PPM PSx: S/p PPM Toxic habits: No hx of alcohol abuse, smoking or IVDA Review of Systems Constitutional: Constitutional: Reports as per HPI [facility] Medical History Complete heart block No known problems Pacemaker Functional capacity: independent ambulation Family history: reviewed and not pertinent Social History Household Members: Spouse Housing: House Alcohol intake: never Smoking Status: Never smoker Use of substances other than those prescribed or required for medical reasons: No Advance Directives: No Advance Directives Information Provided: No service: Yes Current occupational status: retired Meds Allergies Allergy/AdvReac Type Severity Reaction Status Date / Time Penicillins Allergy Anaphylaxis Verified 09/26/20 00:14 Physical Exam Vital Signs and Narrative: Vital Signs: Last Vital Signs Temp 97.5 F 09/26/20 00:45 Pulse 104 H 09/26/20 04:03 Resp 20 09/26/20 04:03 BP 110/77 09/26/20 04:03 Pulse Ox 96 09/26/20 04:03 Body Mass Index 24.3 Const: General: cooperative, comfortable and no acute distress Orientation/consciousness: oriented to person and oriented to place HENMT: Head: Yes normal to inspection Eyes: General: appearance normal, both eyes and all related structures Neck: Yes normal visual inspection Chest: Chest palpation & inspection: normal inspection of the chest Resp: Effort & Inspection: normal respiratory effort Auscultation: clear to auscultation bilaterally Cardio: Jugular venous distension: no JVD Rate: regular rate Rhythm: regular rhythm Heart sounds: S1 normal heart sound present and S2 normal heart sound present GI: Inspection: Yes normal to inspection : General: Yes other (de souza +) Skin: General skin exam: no rashes or lesions noted Neuro: General: oriented to person and oriented to place Cognition (Neuro): abnormal cognition Results Labs CBC and Chem 7: 09/25/20 21:34 09/25/20 21:34 Labs: Laboratory Results - last 24 hr 09/25/20 09/25/20 09/25/20 21:34 21:34 21:34 MCV 90.3 MCH 29.3 MCHC 32.5 RDW 13.8 Plt Count 108 L MPV Not Reportable Immature Gran % (Auto) 0.6 H Neut % (Auto) 86.3 H Lymph % (Auto) 2.3 L [place] % (Auto) 10.5 Eos % (Auto) 0.1 Baso % (Auto) 0.2 Lymph # (Auto) 0.3 L [place] # (Auto) 1.3 H Eos # (Auto) 0.0 Baso # (Auto) 0.0 Abs Immat Gran (auto) 0.07 H Absolute Neuts (auto) 10.4 H Absolute Nucleated RBC 0.000 Nucleated RBC % (auto) 0.0 Smear Tech's Comments VERIFIED Anion Gap 17 Estim Creat Clear Calc 61.2 Estimated GFR 58 Random Glucose 125 H D Lactic Acid 1.2 Calcium 8.4 Total Bilirubin 1.3 H AST 14 ALT 9 Alkaline Phosphatase 73 Troponin I High Sens B-Natriuretic Peptide Total Protein 6.3 L Albumin 3.6 Urine Color Urine Appearance Urine pH Ur Specific [place] Urine Protein Urine Glucose (UA) Urine Ketones Urine Blood Urine Nitrite Ur Leukocyte Esterase Urine RBC Urine WBC Ur Squamous Epith Cells Urine Bacteria Urine Mucus Coronavirus (PCR) Influenza Type A (PCR) Influenza Type B (PCR) RSV RNA Qual (PCR) 09/25/20 09/25/20 09/26/20 21:34 23:42 02:59 MCV MCH MCHC RDW Plt Count MPV Immature Gran % (Auto) Neut % (Auto) Lymph % (Auto) [place] % (Auto) Eos % (Auto) Baso % (Auto) Lymph # (Auto) [place] # (Auto) Eos # (Auto) Baso # (Auto) Abs Immat Gran (auto) Absolute Neuts (auto) Absolute Nucleated RBC Nucleated RBC % (auto) Smear Tech's Comments Anion Gap Estim Creat Clear Calc Estimated GFR Random Glucose Lactic Acid Calcium Total Bilirubin AST ALT Alkaline Phosphatase Troponin I High Sens 27.2 B-Natriuretic Peptide 205 H Total Protein Albumin Urine Color YELLOW Urine Appearance CLOUDY Urine pH 6.0 Ur Specific [place] 1.020 Urine Protein TRACE Urine Glucose (UA) NEG Urine Ketones NEG Urine Blood 3+ H Urine Nitrite NEG Ur Leukocyte Esterase 3+ H Urine RBC 76-150 H Urine WBC TNTC H Ur Squamous Epith Cells 1+ Urine Bacteria 3+ Urine Mucus 2+ Coronavirus (PCR) NEGATIVE Influenza Type A (PCR) NEGATIVE Influenza Type B (PCR) NEGATIVE RSV RNA Qual (PCR) NEGATIVE Imaging Radiologist's Impressions: Impressions Chest X-Ray 09/25/20 21:03 IMPRESSION: Nodular opacity in the right lower lobe peripheral aspect of right lower lobe measuring 2.6 x 2.1 cm. This was seen on the prior CT scan of 08/27/2020. Improving patchy airspace opacities in the right lower lung. Abdomen/Pelvis CT 09/26/20 01:13 IMPRESSION: 1. Limited assessment due to patient motion artifact. Distended, thick-walled urinary bladder. This could reflect sequelae of chronic bladder outlet obstruction, as the prostate gland is significantly enlarged. Mild bilateral hydroureteronephrosis is also noted. 2. Thick-walled appearance of the cecum, raising suspicion for underlying mass. Correlation with colonoscopy is recommended. 3. Mildly dilated, fluid-filled appendix. Subtle adjacent stranding is present. Appearance could be reactive to the cecal wall thickening, though primary appendicitis would be difficult to entirely exclude in the proper clinical setting. 4. Bilateral lung nodules redemonstrated, unchanged from 08/27/2020. Given the suspicious cecal wall thickening, these could reflect metastases. Assessment and Plan (1) Sepsis: Qualifiers: Acute renal failure type: unspecified Sepsis acute organ dysfunction status: with acute organ dysfunction Sepsis type: sepsis due to unspecified organism Severe sepsis acute organ dysfunction type: acute renal failure Severe sepsis shock status: without septic shock Qualified Code(s): A41.9 - Sepsis, unspecified organism; R65.20 - Severe sepsis without septic shock; N17.9 - Acute kidney failure, unspecified Status: Acute Keep MAP >65 mmHg Continue with IV hydration Continue with Rocephin for gram neg coverage Follow up Bcx and Ucx CT abdomen showing bilateral hydronephrosis likely secondary to obstructive uropathy Continue with De Souza catheter and do voiding trial when possible and if urology agreeable Urology Dr Cruz to follow up in am (2) Acute urinary retention: Status: Acute plan as above (3) Appendix disease: Status: Acute swellling of appendix evident on CT but no tenderness on palpation General surgery contacted per ED, to follow up in the am as there is low suspcion for it at present (4) Cecum mass: Status: Acute cecum mass evident on CT. Unknown when patient had colonoscopy done last time GI consult for possible Colonoscopy as inpatient CT as well showing pulmonary nodule which raises concern for possible mets Follow up CEA tumor marker (5) BPH (benign prostatic hyperplasia): Status: Acute continue with home meds as ordered
--- NOTE | 2020-09-26 07:33 | PC.NURSE ---
PT IS A/O X 3 NO SOB/JUAN C NOTED SKIN PINK WARM DRY SPEAKS IN FULL SENTENCES. [facility] CATH P&D YELLOW URINE.
--- NOTE | 2020-09-26 08:17 | PC.NURSE ---
pt seen by dr. guerrero pt aware of plan of care.
--- NOTE | 2020-09-26 08:33 | PM.CNGS ---
History of Present Illness Consult details Consult date: 09/26/20 Narrative: 80-year-old male with av heart block, recent pacemaker placement, brought to the ER last night because falling and weakness. Patient states that he was getting out of bed and trying to change into bed time clothing, when he suddenly fell on the floor. He denies hitting his head. He says he fell on his backside. He is uncertain if he lost consciousness. His therefore call the ambulance service to bring the emergency room. He denies any abdominal pain. He does admit to history of frequent urination night, up to 8-10 times. He was in urinary retention and needed catheter placement by the urologist in view of difficulty with inserting this. He had a CAT scan showing some thickening of the cecal wall along with distention of the appendix so I had been consulted. Otherwise denies any pain in the right lower quadrant. He says has good oral intake. He denies any problems with bowel movements. He has not seen any primary care physician for 50 years. He did have a pacemaker placed urgently a month ago here in the hospital because of an AV block, complete. He had a syncopal episode at that time. He says he has never had any colonoscopy in the past. Review of Systems Constitutional: Constitutional: Denies chills and Denies fever(s) Cardiovascular: Cardiovascular: Denies chest pain Respiratory: Respiratory: Denies cough Gastrointestinal: Gastrointestinal: Denies abdominal pain, Denies hematochezia and Denies change in stool character Genitourinary: Genitourinary: Reports nocturia Musculoskeletal: Musculoskeletal: Reports muscle weakness Neurologic: Denies seizure-like activity and Denies Sensory deficit (Neuro) [facility] Past Medical History Medical History Complete heart block No known problems Pacemaker Functional capacity: independent ambulation Family History Family history: reviewed and not pertinent Social History Social History (Updated 09/26/20 @ 08:38 by Franck Meeks MD) Household Members: Spouse Housing: House Alcohol intake: never Smoking Status: Former smoker Use of substances other than those prescribed or required for medical reasons: No Advance Directives: No Advance Directives Information Provided: No service: Yes Current occupational status: retired Meds Allergies Allergy/AdvReac Type Severity Reaction Status Date / Time Penicillins Allergy Anaphylaxis Verified 09/26/20 00:14 Physical Exam Vital Signs: Vital Signs: Last Vital Signs Temp 98.0 F 09/26/20 07:31 Pulse 93 09/26/20 07:31 Resp 20 09/26/20 07:31 BP 116/75 09/26/20 07:31 Pulse Ox 97 09/26/20 07:31 Body Mass Index 24.3 Const: General: comfortable and no acute distress Neck: Neck: Yes no lymphadenopathy Chest: Other: Pacemaker on left upper anterior chest Resp: Effort & Inspection: normal respiratory effort Cardio: Rate: regular rate Rhythm: regular rhythm GI: Inspection: No distended Palpation (GI): Soft to palpation, nontender, no guarding, not rigid and no masses Neuro: Sensory Exam: No Sensory deficit (Neuro) Extrem: Right upper extremity: no edema Results Labs Result diagrams: 09/25/20 21:34 09/25/20 21:34 Labs: Abnormal lab results 09/25/20 09/25/20 09/25/20 Range/Units 21:34 21:34 21:34 WBC 12.1 H (4.8-10.8) X10*3/uL RBC 4.23 L (4.60-5.80) X10*6/uL Hgb 12.4 L (14.0-18.0) g/dl Hct 38.2 L (42-52) % Plt Count 108 L (160-400) X10*3/uL Immature Gran % (Auto) 0.6 H (0.0-0.4) % Neut % (Auto) 86.3 H (45-73) % Lymph % (Auto) 2.3 L (20-40) % Lymph # (Auto) 0.3 L (1.2-4.9) X10*3/uL [place] # (Auto) 1.3 H (0.1-1.2) X10*3/uL Abs Immat Gran (auto) 0.07 H (0.00-0.03) X10*3/uL Absolute Neuts (auto) 10.4 H (2.0-8.3) X10*3/uL Carbon Dioxide 21 L (22-29) mmol/L BUN 21 H D (9-16) mg/dL Random Glucose 125 H D (60-115) mg/dL Total Bilirubin 1.3 H (0.0-1.0) mg/dL B-Natriuretic Peptide 205 H (<100) pg/mL Total Protein 6.3 L (6.5-8.0) g/dL Urine Blood (NEG) Ur Leukocyte Esterase (NEG) Urine RBC (0) /HPF Urine WBC (0-4) /HPF 09/25/20 Range/Units 23:42 WBC (4.8-10.8) X10*3/uL RBC (4.60-5.80) X10*6/uL Hgb (14.0-18.0) g/dl Hct (42-52) % Plt Count (160-400) X10*3/uL Immature Gran % (Auto) (0.0-0.4) % Neut % (Auto) (45-73) % Lymph % (Auto) (20-40) % Lymph # (Auto) (1.2-4.9) X10*3/uL [place] # (Auto) (0.1-1.2) X10*3/uL Abs Immat Gran (auto) (0.00-0.03) X10*3/uL Absolute Neuts (auto) (2.0-8.3) X10*3/uL Carbon Dioxide (22-29) mmol/L BUN (9-16) mg/dL Random Glucose (60-115) mg/dL Total Bilirubin (0.0-1.0) mg/dL B-Natriuretic Peptide (<100) pg/mL Total Protein (6.5-8.0) g/dL Urine Blood 3+ H (NEG) Ur Leukocyte Esterase 3+ H (NEG) Urine RBC 76-150 H (0) /HPF Urine WBC TNTC H (0-4) /HPF Short CBC 09/25/20 Range/Units 21:34 WBC 12.1 H (4.8-10.8) X10*3/uL Hgb 12.4 L (14.0-18.0) g/dl Hct 38.2 L (42-52) % Plt Count 108 L (160-400) X10*3/uL BMP 09/25/20 21:34 Sodium 137 Potassium 3.8 Chloride 103 Carbon Dioxide 21 L BUN 21 H D Creatinine 1.20 Calcium 8.4 Liver Function 09/25/20 Range/Units 21:34 Total Bilirubin 1.3 H (0.0-1.0) mg/dL AST 14 (5-37) U/L ALT 9 (0-40) U/L Alkaline Phosphatase 73 (39-117) U/L Albumin 3.6 (3.5-5.0) g/dL Urine 09/25/20 Range/Units 23:42 Urine Color YELLOW Urine Appearance CLOUDY Urine pH 6.0 (5.0-8.0) Ur Specific [place] 1.020 (1.005-1.025) Urine Protein TRACE (NEG-TRACE) MG/DL Urine Glucose (UA) NEG (NEG) MG/DL All other labs normal. Assessment and Plan (1) Cecum mass: Status: Acute 80-year-old male admitted for weakness and for falling. He had a CAT scan of the abdomen done showing thickening of the cecal wall, dilatation of the appendix. Clinically he does not have any acute appendicitis. He does not have any pain or tenderness on the abdomen. I would however recommend GI consult for colonoscopy to evaluate the cecum in view of the thickening which may represent a neoplastic process or inflammation. The patient has never had any colonoscopy in the past. He does not seem to have anemia at this time. He does have some lesions in the lungs that may be metastatic disease. He has a very benign exam at this time. I will follow along while he is in the hospital. He also had urinary tension requiring catheter placement urologist this morning.
--- NOTE | 2020-09-26 09:57 | PC.NURSE ---
pt's khris burrell called ([phone]) [facility] – [place], [place] and was updated on pt's status of admission. pt was given the portable phone so he could speak with his .
--- NOTE | 2020-09-26 11:09 | PC.NURSE ---
s3e called valerie (rn) unable to get report at this time, she will call back this rn.
--- NOTE | 2020-09-26 11:20 | PC.NURSE ---
nurse to nurse given to valerie (eduardo). pt aware of plan of care for admission to hosp.
--- NOTE | 2020-09-26 11:40 | HO.PM.IMPN ---
Subjective Subjective Date of Service: 09/26/20 Interval History: seen and examined this AM in the ED denies abdominal pain reports he had a mechanical fall reports difficulty urination chronically Physical Exam Vital Signs: Vital Signs: Last Vital Signs Temp 98.2 F 09/26/20 10:11 Pulse 89 09/26/20 10:11 Resp 22 H 09/26/20 10:11 BP 109/64 09/26/20 10:11 Pulse Ox 95 09/26/20 10:11 Body Mass Index 24.3 Const: Other: General - no acute distress, appears comfortable, Cardiovascular - regular rate and rhythm, S1-S2 Lungs - normal respiratory effort, clear to auscultation bilaterally, no wheezing Abdomen - soft, nontender, no rebound or guarding Extremities - no edema bilaterally - De Souza in place Neuro - awake and alert, no focal deficits Objective Data Current Medications Generic Name Dose Route Start Last Admin Trade Name Freq PRN Reason Stop Dose Admin Ceftriaxone Sodium 1 gm/ 50 mls @ 100 mls/hr 09/27/20 06:00 Sodium Chloride IV Q24H ABIOLA Tamsulosin HCl 0.4 mg 09/26/20 21:00 Tamsulosin Hcl 0.4 Mg Capsule PO BEDTIME ABIOLA Labs CBC & Chem 7: 09/25/20 21:34 09/25/20 21:34 Assessment and Plan (1) Sepsis: Status: Acute Assessment and Plan: This is a 80 yo M who was admitted to the hospital in August 2020 after a syncopal episode resulting from heart block requiring emergent intubation + PPM. He was discharged home and now returns after a fall. He himself denies any loss of consciousness. 1. Sepsis secondary to UTI no evidence of severe sepsis continue rocephin f/u C&S 2. Urinary retention likley due to enlarged prostate de souza placed in the ED will need to continue urology on board 3. Cecal mass / appendiceal swelling surgery input appreciated will need colonoscopic eval for cecal mass -- the patient himself is doesnt seem very interested in doing this and really just wants to home. Have called the patients to discuss this with her, left VM to call back. 4. EMILY mild SCr 0.75 last month, now 1.2 likley post renal from obstruction recheck tomorrow 5. BPH flomax / proscar urology f/u Full Code DVT pptx, subcut. heparin
[2020-09-26] MEDS: Heparin Sodium,Porcine 5,000 UNIT/ML VIAL 5000 UNIT SUBCUT ×2 (13:27→20:33)
[2020-09-26] MEDS: 0.9 % Sodium Chloride Flush 3 ML SYRINGE IVFLUSH ×3 (13:28→20:34)
[2020-09-26 15:16] LABS: Basophils Percent Auto 0.1 % (0-2); Eosinophils Percent Auto 0.3 % (0-4); Hematocrit 35.3 % (42-52); Hemoglobin 11.2 g/dl (14.0-18.0); Imm Gran Abs Auto 0.05 X10*3/uL (0.00-0.03); Imm Gran Pct Auto 0.4 % (0.0-0.4); Lymphocytes Absolute Auto 0.4 X10*3/uL (1.2-4.9); Lymphocytes Percent Auto 3.2 % (20-40); MANUAL DIFF FLAG SCAN; Mean Corpuscular HGB Conc 31.7 g/dl (31.0-36.0); Mean Corpuscular Hemoglobin 29.2 pg (27.0-33.0); Mean Corpuscular Volume 91.9 fL (80-98); Monocytes Absolute Auto 1.1 X10*3/uL (0.1-1.2); Monocytes Percent Auto 9.6 % (2-11); Neutrophils Absolute Auto 9.9 X10*3/uL (2.0-8.3); Neutrophils Percent Auto 86.4 % (45-73); Red Blood Count 3.84 X10*6/uL (4.60-5.80); Red Cell Distribution Width 14.1 % (11.0-16.0); SCAN SMEAR FLAG 1; White Blood Count 11.4 X10*3/uL (4.8-10.8)
[2020-09-26 15:17] LABS: Platelet Count 98 X10*3/uL (160-400)
[2020-09-26 15:33] LABS: Anion Gap 12 (12-20); Blood Urea Nitrogen 18 mg/dL (9-16); Calcium 7.9 mg/dL (8.4-10.2); Carbon Dioxide 23 mmol/L (22-29); Chloride 107 mmol/L (96-108); Creatinine Clr Calc Pharmacy 82.6; Estimated Glomerular Filt Rate > 60; Glucose Random 108 mg/dL (60-115); Potassium 3.2 mmol/l (3.3-5.1); Sodium 139 mmol/L (135-145)
[2020-09-26 15:43] LABS: SLIDE REVIEW VERIFIED
--- NOTE | 2020-09-26 16:19 | PM.EVENT ---
Event Note Date of Service: 09/26/20 Event Note: Hx via patient and EMR. Imp: Suspicious Abdominal CT scan raising a suspicion of a cecal neoplasm in a 80 yo male who has never had a colonoscopy and is asymptomatic from a GI standpoint. Rec: I told him of the need for a colonoscopy to R/O colon cancer. We reviewed the procedure in detail in regard to the anesthesia involved, and the risks of bleeding and perforation. I told him it is very important to do this and told him that we could do it tomorrow, 09/27/2020. However, at this point he is adamantly refusing this and says he will consider doing it on Wednesday, 09/30. He does seem to understand the procedure and the need for it. I did speak with and he will see if the patient's can convince him to have the colonoscopy tomorrow. Thanks very much
--- NOTE | 2020-09-26 17:25 | CONS_ITS ---
DATE OF SERVICE: REASON FOR CONSULTATION: Abnormal CT scan of colon. HISTORY OF PRESENT ILLNESS: This has been obtained from the patient and the medical record. The patient is a 80-year-old male, who is generally quite healthy and has not seen physicians up until just about a month ago when he required a pacemaker. He has never had a colonoscopy. He came back to the hospital for admission after having a fall at home. He underwent a workup in the ER including a CAT scan of the abdomen that revealed an abnormality involving the cecal area raising suspicion of a possible neoplasm. There is some diverticulosis, and a question of intestinal malrotation as well. There was no bowel obstruction, intraabdominal fluid, nor any sign of an abscess. The patient denies any abdominal pain at the present time. He reports that he has been eating fairly comfortably at home. He denies any significant heartburn nor dysphagia. He reports his bowel movements have been regular and without any signs of hematochezia nor melena. Again, he denies any known family history of colon cancer nor has he had a colonoscopy. MEDICATIONS: At home included only tamsulosin. His medications in the hospital include acetaminophen, ceftriaxone, Proscar, subcu heparin, tamsulosin. PAST MEDICAL HISTORY: Pacemaker placed in August. Enlarged prostate. Urinary retention. He denies any other surgeries. He denies any history of heart disease, diabetes, or stroke. SOCIAL HISTORY: He is . He does not smoke nor use any significant amounts of alcohol. FAMILY HISTORY: Noncontributory. REVIEW OF SYSTEMS: CONSTITUTIONAL: He reports he has been feeling fairly well at home. SKIN: No rash. No pruritus. CARDIAC: No chest pain. PULMONARY: No cough. No hemoptysis. GASTROINTESTINAL: As above. PHYSICAL EXAMINATION: GENERAL: The patient is a pleasant, elderly alert male. He is oriented to person, place, and year. He answers questions appropriately and seems to have a good understanding of the conversation. SKIN: Warm and dry. Anicteric sclerae. ABDOMEN: Soft, nondistended, nontender without palpable mass. LABORATORY DATA: CAT scan as above. Hemoglobin 12.4, platelets 108,000. Normal electrolytes. BUN 21, creatinine 1.2. White blood cell count 11.4. PT was 12.3 with INR 1.0 in August. Sodium 139, potassium 3.2, chloride 107, CO2 of 23, BUN 18, creatinine 0.9. Total bilirubin is 1.3, AST 14, ALT 9, alkaline phosphatase 73, albumin 3.6. IMPRESSION: Given the patient's abnormal CAT scan suggestive of a possible neoplasm in the area of the cecum, I would recommend colonoscopy for further evaluation. He is not having any particular symptoms in that regard, but nonetheless given his age and never having had a colonoscopy, I would certainly recommend a colonoscopy for definitive evaluation. I have reviewed this in detail with the patient including the need for monitored anesthesia care, as well as potential risks of the procedure including bleeding and perforation. He definitely seemed to understand the procedure well as well as the need for it in regard to ruling out a neoplasm. Nonetheless, he did not want to do the procedure tomorrow and reports that he thinks he might want to do it on September 30. I advised him that it would be best to do tomorrow while he is an inpatient as I do think that would be more efficient and easier for him. In the event, we do tomorrow I did obtain consent including risks of bleeding and perforation. If he wants to wait till next week, then we can certainly proceed in that direction as well. This has been discussed with him in detail and he is seemingly comfortable with the plan. Thank you for the consultation. MD DAYANA Ricci/PIYUSH / [id number] JESSICA
[2020-09-26] MEDS: Tamsulosin HCL 0.4 MG CAPSULE PO (20:33)
[2020-09-27] VITALS (7 sets, daily range): BP systolic 128–148; BP diastolic 78–93; PULSE 101–116; RESP 16–32; TEMP 36.4–37.3; O2SAT 95–97
[2020-09-27] MEDS: Heparin Sodium,Porcine 5,000 UNIT/ML VIAL 5000 UNIT SUBCUT ×3 (03:27→20:31)
[2020-09-27] MEDS: cefTRIAXone sodium 1 GM in 0.9 % Sodium Chloride 50 ML IV (06:06)
--- NOTE | 2020-09-27 07:47 | PM.PNGS ---
Subjective Subjective Date of Service: 09/27/20 Interval history: denies abdl pain says he feels well no GI complaints Physical Exam Vital Signs: Vital Signs: Last Vital Signs Temp 98.2 F 09/27/20 03:24 Pulse 108 H 09/27/20 03:24 Resp 16 09/27/20 03:24 BP 130/90 H 09/27/20 03:24 Pulse Ox 95 09/27/20 03:24 Body Mass Index 24.3 Chemistry 09/25/20 09/26/20 21:34 14:49 Sodium 137 139 Potassium 3.8 3.2 L Carbon Dioxide 21 L 23 BUN 21 H D 18 H Creatinine 1.20 0.89 Calcium 8.4 7.9 L Hematology 09/25/20 09/26/20 21:34 14:49 WBC 12.1 H 11.4 H Hgb 12.4 L 11.2 L Plt Count 108 L 98 L Urinalysis 09/25/20 23:42 Urine Color YELLOW Urine Appearance CLOUDY Urine pH 6.0 Ur Specific Gravit y 1.020 Urine Protein TRACE Urine Glucose (UA) NEG Urine Ketones NEG Urine Blood 3+ H Urine Nitrite NEG Ur Leukocyte [place] 3+ H Urine RBC 76-150 H Urine WBC TNTC H Ur Squamous Epith Cells 1+ Const: General: comfortable and no acute distress Resp: Effort & Inspection: normal respiratory effort Cardio: Rhythm: regular rhythm GI: Inspection: No distended Palpation (GI): Soft to palpation, nontender and no guarding : Other: Pham in place for retention Progress Note: A&P Assessment and plan (1) Cecum mass: Status: Acute Assessment and Plan: CT suggests cecal thickening,?lesion GI consulted - for colonoscopy on Wednesday- pt has never had colonoscopy in the past no appendicitis clinically UTI on urinalysis looks well otherwise Fall Risk Details Current Medications: Current Medications Generic Name Dose Route Start Last Admin Trade Name Freq PRN Reason Stop Dose Admin Finasteride 5 mg 09/27/20 09:00 Finasteride 5 Mg Tablet PO DAILY ABIOLA Heparin Sodium (Porcine) 5,000 unit 09/26/20 12:04 09/27/20 03:27 Heparin Sodium,Porcine 5,000 Unit/Ml Vial SUBCUT 5,000 unit Q8H ABIOLA Administration Ceftriaxone Sodium 1 gm/ 50 mls @ 100 mls/hr 09/27/20 06:00 09/27/20 06:41 Sodium Chloride IV Infused Q24H ABIOLA Infusion Sodium Chloride 3 ml 09/26/20 12:04 09/26/20 20:34 0.9 % Sodium Chloride Flush 3 Ml Syringe IVFLUSH 3 ml QSHIFT ABIOLA Administration Tamsulosin HCl 0.4 mg 09/26/20 21:00 09/26/20 20:33 Tamsulosin Hcl 0.4 Mg Capsule PO 0.4 mg BEDTIME ABIOLA Administration Time Spent With Patient Time: Total time spent is greater than 50% in coordination of care (as documented) at patient's floor/unit and/or counseling patient: Time with patient: 15 - 24 minutes
[2020-09-27] MEDS: 0.9 % Sodium Chloride Flush 3 ML SYRINGE IVFLUSH ×3 (09:02→20:31)
[2020-09-27] MEDS: Finasteride 5 MG TABLET PO (09:03)
--- NOTE | 2020-09-27 11:57 | P.PNIM_ITS ---
Subjective Subjective Date of Service: 09/27/20 Interval History: seen and examined this AM discussed with him in details about the need for him having a colonoscopy which he flat out refuses. He does not even want it on Wednesday. Told him that he may have colon cancer but he says he does not care. Discussed with his and informed him that the patient does not want colonoscopy and she says that the decision is his and that he is very stubborn also discussed with him about his urinary tract infection and bacteremia. He is willing to stay in the hospital until tomorrow for treatment of his infection. Physical Exam Vital Signs: Vital Signs: Last Vital Signs Temp 97.6 F 09/27/20 11:35 Pulse 105 H 09/27/20 11:35 Resp 18 09/27/20 11:35 BP 148/87 H 09/27/20 11:35 Pulse Ox 96 09/27/20 11:35 Body Mass Index 24.3 Const: Other: General - no acute distress, appears comfortable, Cardiovascular - regular rate and rhythm, S1-S2 Lungs - normal respiratory effort, clear to auscultation bilaterally, no wheezing Abdomen - soft, nontender, no rebound or guarding Extremities - no edema bilaterally - De Souza in place Neuro - awake and alert, no focal deficits Objective Data Current Medications Generic Name Dose Route Start Last Admin Trade Name [place]q PRN Reason Stop Dose Admin Finasteride 5 mg 09/27/20 09:00 09/27/20 09:03 Finasteride 5 Mg Tablet PO 5 mg DAILY ABIOLA Administration Heparin Sodium (Porcine) 5,000 unit 09/26/20 12:04 09/27/20 03:27 Heparin Sodium,Porcine 5,000 Unit/Ml Vial SUBCUT 5,000 unit Q8H ABIOLA Administration Ceftriaxone Sodium 1 gm/ 50 mls @ 100 mls/hr 09/27/20 06:00 09/27/20 06:41 Sodium Chloride IV Infused Q24H ABIOLA Infusion Sodium Chloride 3 ml 09/26/20 12:04 09/27/20 09:02 0.9 % Sodium Chloride Flush 3 Ml Syringe IVFLUSH 3 ml QSHIFT ABIOLA Administration Tamsulosin HCl 0.4 mg 09/26/20 21:00 09/26/20 20:33 Tamsulosin Hcl 0.4 Mg Capsule PO 0.4 mg BEDTIME ABIOLA Administration Labs CBC & Chem 7: 09/26/20 14:49 09/26/20 14:49 Microbiology Microbiology Results: Microbiology 09/26/20 Unknown Urine Catheterized - De Souza Catheter Urine Culture - Preliminary Gram negative vanessa 09/25/20 22:52 Blood - Venous Blood Culture - Preliminary Gram negative vanessa 09/25/20 22:52 Blood - Venous Blood Culture - Preliminary No growth after 24 hours. Assessment and Plan (1) Sepsis: Status: Acute Assessment and Plan: This is a 80 yo M who was admitted to the hospital in August 2020 after a syncopal episode resulting from heart block requiring emergent intubation + PPM. He was discharged home and now returns after a fall. He himself denies any loss of consciousness. 1. Sepsis secondary to UTI, Gram Neg bacteremia no evidence of severe sepsis continue rocephin f/u final C&S 2. Urinary retention likley due to enlarged prostate de souza placed in the ED will need to continue urology on board flomax / proscar 3. Cecal mass / appendiceal swelling GI and Gen Surg input appreciated patient aware of the likelihood of cancer, but does not want colonoscopy, even o n Wednesday. His has been informed and she tells me that the decision is his. 4. EMILY mild improved with fluids + de souza 5. BPH flomax / proscar urology f/u Full Code DVT pptx, subcut. heparin dispo: home next 1-2 day per patient wishes
--- NOTE | 2020-09-27 14:16 | MHC.CM.PN ---
pt lives c his in their home. she helps care for him, he uses a cane c ambulation. pt's will provide transportion at [facility]. pt does not want to go to [facility], he did however request [facility] for home PT and nsg. a ref. has been made to [facility] for this . dc plan is home c [facility] for nsg and home pt. cm to cont. to follow.
[2020-09-27] MEDS: Tamsulosin HCL 0.4 MG CAPSULE PO (20:31)
[2020-09-28 04:00] VITALS: BP 145/96; PULSE 101; RESP 16; TEMP 36.7; O2SAT 94
[2020-09-28] MEDS: Heparin Sodium,Porcine 5,000 UNIT/ML VIAL 5000 UNIT SUBCUT ×2 (05:11→13:39)
[2020-09-28] MEDS: cefTRIAXone sodium 1 GM in 0.9 % Sodium Chloride 50 ML IV (05:47)
[2020-09-28 08:00] VITALS: BP 136/93; PULSE 97; RESP 19; TEMP 36.6; O2SAT 96
[2020-09-28] MEDS: Finasteride 5 MG TABLET PO (09:15)
[2020-09-28] MEDS: 0.9 % Sodium Chloride Flush 3 ML SYRINGE IVFLUSH ×2 (09:15→17:15)
--- NOTE | 2020-09-28 11:41 | MHC.CM.PN ---
PATIENT IS DISCHARGED HOME WITH NO SERVICES. PATIENT AND DECLINE THE NEED. RN AWARE OF PLAN.
[2020-09-28 12:00] VITALS: BP 144/98; PULSE 96; RESP 20; TEMP 36.1; O2SAT 95
--- NOTE | 2020-09-28 12:01 | PM.DS ---
DS: Providers Provider Date of admission: 09/26/20 05:53 Primary care physician: Unknown Physician Consults: 09/26/20 08:27 Consult to General Surgery Routine Consulting Provider: [facility] [place] General Surgeons Reason for consultation: appendix eval Has provider been notified: No Consult to Urology Routine Consulting Provider: [facility] [place] Urology Services Reason for consultation: urinary retention Has provider been notified: Yes 09/26/20 12:04 Consult to Gastroenterology Routine Consulting Provider: [facility] [place] Gastroenterology Services Reason for consultation: cecal mass Has provider been notified: No DS: Diagnosis Discharge Diagnosis (1) Bacteremia: Status: Acute (2) Complicated urinary tract infection: Status: Acute (3) EMILY (acute kidney injury): Status: Acute (4) Cecum mass: Status: Acute DS: Medications Discharge Medications Home Medications: Previous Rx's Medication Instructions Recorded tamsulosin 0.4 mg capsule 0.4 mg PO BEDTIME #30 cap 09/04/20 cefuroxime axetil 500 mg PO Q12H #24 tab 09/28/20 finasteride [Proscar] 5 mg PO DAILY #30 tab 09/28/20 DS: Summary Hospital Course Hospital Course: This is a 80-year-old male who presented to the hospital after a mechanical fall and was found to have urinary retention and UTI while in the emergency room. He was subsequently admitted and started on treatment with IV antibiotics. His hospital course was further complicated by Gram-negative bacteremia which ultimately came back as the same E coli which was found of his urine. Fortunately these were sensitive to cephalosporins and he will be discharged home On p.o. cefuroxime 500 mg twice a dayto complete a 14 day course of antibiotics. in regards to his urinary retention, a De Souza catheter was placed and Urology recommended to keep it in for 7 days and follow-up in their clinic for possible removal. He has been encouraged to take his Flomax and Proscar which have been prescribed to him after his last admission. Lastly, patient's CT scan of the abdomen and pelvis showed a concern for possibility of colon cancer with cecal thickening. Gastroenterology was consulted and recommendation was for a colonoscopy. However the patient refused. He has been strongly encouraged to obtain and f/u with a PCP [place]. Time Spent with Patient Time attestation: Total time spent providing and/or coordinating discharge services: Physical Exam Vital Signs: Vital Signs: Last Vital Signs Temp 97.8 F 09/28/20 08:00 Pulse 97 09/28/20 08:00 Resp 19 09/28/20 08:00 BP 136/93 H 09/28/20 08:00 Pulse Ox 96 09/28/20 08:00 Body Mass Index 24.3 General - no acute distress, appears comfortable Cardiovascular - regular rate and rhythm, S1-S2 Lungs - normal respiratory effort, clear to auscultation bilaterally, no wheezing Abdomen - soft, nontender, no rebound or guarding Extremities - no edema bilaterally Neuro - awake and alert, no focal deficits DS: Data Data Completed and Pending Completed studies during hospitalization [Text1]: Procedures Insertion of Endotracheal Airway into Trachea, Via Natural or Artificial Opening (08/27/20) Insertion of Pacemaker Lead into Right Atrium, Percutaneous Approach (08/27/20) Insertion of Pacemaker Lead into Right Ventricle, Percutaneous Approach (08/27/20) Insertion of Pacemaker, Dual Chamber into Chest Subcutaneous Tissue and Fascia, Open Approach (08/27/20) Labs on day of discharge: Laboratory Last Values WBC 11.4 X10*3/uL (4.8-10.8) H 09/26/20 14:49 RBC 3.84 X10*6/uL (4.60-5.80) L 09/26/20 14:49 Hgb 11.2 g/dl (14.0-18.0) L 09/26/20 14:49 Hct 35.3 % (42-52) L 09/26/20 14:49 MCV 91.9 fL (80-98) 09/26/20 14:49 MCH 29.2 pg (27.0-33.0) 09/26/20 14:49 MCHC 31.7 g/dl (31.0-36.0) 09/26/20 14:49 RDW 14.1 % (11.0-16.0) 09/26/20 14:49 Plt Count 98 X10*3/uL (160-400) L 09/26/20 14:49 MPV Not Reportable 09/26/20 14:49 Immature Gran % (Auto) 0.4 % (0.0-0.4) 09/26/20 14:49 Neut % (Auto) 86.4 % (45-73) H 09/26/20 14:49 Lymph % (Auto) 3.2 % (20-40) L 09/26/20 14:49 Will % (Auto) 9.6 % (2-11) 09/26/20 14:49 Eos % (Auto) 0.3 % (0-4) 09/26/20 14:49 Baso % (Auto) 0.1 % (0-2) 09/26/20 14:49 Lymph # (Auto) 0.4 X10*3/uL (1.2-4.9) L 09/26/20 14:49 Will # (Auto) 1.1 X10*3/uL (0.1-1.2) 09/26/20 14:49 Eos # (Auto) 0.0 X10*3/uL (0.0-0.4) 09/26/20 14:49 Baso # (Auto) 0.0 X10*3/uL (0.0-0.2) 09/26/20 14:49 Abs Immat Gran (auto) 0.05 X10*3/uL (0.00-0.03) H 09/26/20 14:49 Absolute Neuts (auto) 9.9 X10*3/uL (2.0-8.3) H 09/26/20 14:49 Absolute Nucleated RBC 0.000 X10*3/uL (0.0-0.012) 09/26/20 14:49 Nucleated RBC % (auto) 0.0 /100WBC (0.0-0.2) 09/26/20 14:49 Smear Tech's Comments VERIFIED 09/26/20 14:49 Sodium 139 mmol/L (135-145) 09/26/20 14:49 Potassium 3.2 mmol/l (3.3-5.1) L 09/26/20 14:49 Chloride 107 mmol/L (96-108) 09/26/20 14:49 Carbon Dioxide 23 mmol/L (22-29) 09/26/20 14:49 Anion Gap 12 (-20) 09/26/20 14:49 BUN 18 mg/dL (9-16) H 09/26/20 14:49 Creatinine 0.89 mg/dL (0.5-1.4) 09/26/20 14:49 Estim Creat Clear Calc 82.6 09/26/20 14:49 Estimated GFR > 60 09/26/20 14:49 Random Glucose 108 mg/dL (60-115) 09/26/20 14:49 Lactic Acid 1.2 mmol/L (0.5-2.0) 09/25/20 21:34 Calcium 7.9 mg/dL (8.4-10.2) L 09/26/20 14:49 Total Bilirubin 1.3 mg/dL (0.0-1.0) H 09/25/20 21:34 AST 14 U/L (5-37) 09/25/20 21:34 ALT 9 U/L (0-40) 09/25/20 21:34 Alkaline Phosphatase 73 U/L (39-117) 09/25/20 21:34 Troponin I High Sens 27.2 ng/L (<3.5-35.0) 09/25/20 21:34 B-Natriuretic Peptide 205 pg/mL (<100) H 09/25/20 21:34 Total Protein 6.3 g/dL (6.5-8.0) L 09/25/20 21:34 Albumin 3.6 g/dL (3.5-5.0) 09/25/20 21:34 Urine Color YELLOW 09/25/20 23:42 Urine Appearance CLOUDY 09/25/20 23:42 Urine pH 6.0 (5.0-8.0) 09/25/20 23:42 Ur Specific [place] 1.020 (1.005-1.025) 09/25/20 23:42 Urine Protein TRACE MG/DL (NEG-TRACE) 09/25/20 23:42 Urine Glucose (UA) NEG MG/DL (NEG) 09/25/20 23:42 Urine Ketones NEG MG/DL (NEG) 09/25/20 23:42 Urine Blood 3+ (NEG) H 09/25/20 23:42 Urine Nitrite NEG (NEG) 09/25/20 23:42 Ur Leukocyte Esterase 3+ (NEG) H 09/25/20 23:42 Urine RBC 76-150 /HPF (0) H 09/25/20 23:42 Urine WBC TNTC /HPF (0-4) H 09/25/20 23:42 Ur Squamous Epith Cells 1+ /LPF 09/25/20 23:42 Urine Bacteria 3+ /LPF 09/25/20 23:42 Urine Mucus 2+ /LPF 09/25/20 23:42 Coronavirus (PCR) NEGATIVE (Negative) 09/26/20 02:59 Influenza Type A (PCR) NEGATIVE (Negative) 09/26/20 02:59 Influenza Type B (PCR) NEGATIVE (Negative) 09/26/20 02:59 RSV RNA Qual (PCR) NEGATIVE (Negative) 09/26/20 02:59 Preliminary micro results at discharge 09/25/20 22:52 Blood Culture - Preliminary Blood - Venous Escherichia coli 09/25/20 22:52 Blood Culture - Preliminary Blood - Venous No growth after 48 hours. Discharge Plan Discharge Patient Disposition: Home, Self-Care Referrals: Josh Cruz MD [Physician] - (follow up in 1 week to remove catheter) Physician,Unknown [Primary Care Provider] - Discharge Medications: New finasteride [Proscar] 5 mg Tablet 5 mg PO DAILY Qty: 30 RF: 0 cefuroxime axetil 500 mg tablet 500 mg PO Q12H Qty: 24 RF: 0 Continued tamsulosin 0.4 mg capsule 0.4 mg PO BEDTIME Qty: 30 RF: 0 Discharge Orders: Discharge Order (Routine); Ordered 09/28/20 Ordered By: Parrish Adame Diet: advance to usual diet Activity on Discharge: As tolerated Visit Report Forms: Patient Portal Discharge page Care Plan Goals: To stay healthy and out of the hospital. Health Concerns: E. Coli Bacteremia / UTI -- take Cefuroxime 500mg twice daily Enlarged prostate - Keep de souza for 1 week, f/u with Dr. Cruz; Take Flomax and Proscar Plan of Treatment: E. Coli Bacteremia / UTI -- take Cefuroxime 500mg twice daily Enlarged prostate - Keep de souza for 1 week, f/u with Dr. Cruz; Take Flomax and Proscar
--- NOTE | 2020-09-28 14:10 | MHC.CM.PN ---
PATIENT AND NOW STATE THEY WANT A REFERRAL TO [facility]. [facility], PATIENT DOES NOT HAVE A PCP. PER CONVERSATION WITH MILI, [phone], SHE WILL ARRANGE A NEW PCP VISIT AND OBTAIN [facility] THROUGH PROVIDER. MILI REPORTS THAT SHE WILL WORK ON THIS Wednesday09/30/2020, THE OFFICE IS CLOSED OVER THE WEEKEND.
[2020-09-28 15:53] VITALS: BP 130/81; PULSE 99; RESP 18; TEMP 36.2; O2SAT 97
== END 2020-09-28 18:48 | disposition home or self-care (01) | DRG 872 ==
LOC: HO.ED 09-26 04:39 → HO.S3 09-26 10:55
PROVIDERS: Admitting Provider Internal Medicine; Emergency Provider Student in an Organized Health Care Education/Training Program; Visit Provider Family Medicine
DX: A41.9 Sepsis, unspecified organism (principal); N39.0 Urinary tract infection, site not specified; N17.9 Acute kidney failure, unspecified; C18.0 Malignant neoplasm of cecum; B96.20 Unspecified Escherichia coli [E. coli] as the cause of diseases classified elsewhere; R65.20 Severe sepsis without septic shock; Z95.0 Presence of cardiac pacemaker; N40.1 Benign prostatic hyperplasia with lower urinary tract symptoms; R33.8 Other retention of urine; Z20.828 Contact with and (suspected) exposure to other viral communicable diseases; Z79.899 Other long term (current) drug therapy
CPT/HCPCS: 0241U; 36415; 51798; 71045; 74177; 80048; 80053; 81001; 83605; 83880; 84484; 85025; 87040; 87077; 87086; 87088; 87186; 93005; 96361; 96365; 99284; 99285; J0696; Q9967

== ENCOUNTER → 2020-10-08 13:38 | Outpatient (BNVA) | payer MEDICARE, OTHER, SELFPAY | PROVIDERS: PCP Internal Medicine; Visit Provider Urology | DX: Z76.89 Persons encountering health services in other specified circumstances (principal) | CPT/HCPCS: 99212 ==

== ENCOUNTER → 2020-10-28 12:39 | Outpatient (BNVA) | payer MEDICARE, OTHER, SELFPAY | PROVIDERS: Visit Provider Internal Medicine Cardiovascular Disease | DX: R00.0 Tachycardia, unspecified (principal); Z45.018 Encounter for adjustment and management of other part of cardiac pacemaker; Z86.79 Personal history of other diseases of the circulatory system | CPT/HCPCS: 93005; 99212 ==

== ENCOUNTER → 2021-02-05 13:20 | Outpatient (BNVA) | payer MEDICARE, OTHER, SELFPAY | PROVIDERS: Visit Provider Internal Medicine Cardiovascular Disease | DX: I47.1 Supraventricular tachycardia (principal); Z95.0 Presence of cardiac pacemaker; Z86.79 Personal history of other diseases of the circulatory system; Z79.899 Other long term (current) drug therapy | CPT/HCPCS: 99212 ==

== ENCOUNTER → 2021-02-19 14:27 | Outpatient (REF) | payer MEDICARE, OTHER, SELFPAY ==
--- NOTE | 2021-03-20 10:00 | ECG_ITS ---
Hook-up date: 2021-02-19 15:01:00 Duration: 24:00:00 Test Indications: UNSPEC. TACHYCARDIA Medications: 704190 QRS complexes 330 Ventricular ectopics which represent <1 % of total QRS comp. 99422 Supraventricular ectopics which represent 11 % of total QRS comp. * Paced QRS complexs which represent % of total QRS comp. VENTRICULAR ECTOPY 318 Isolated 0 Bigeminal Cycles 6 Couplets 0 Runs 0 Beats in Runs * Beats LONGEST at * BPM at :: -- * Beats FASTEST at * BPM at :: -- SUPRAVENTRICULAR ECTOPY 4553 Isolated 1222 Couplets 1318 Runs 7705 Beats in Runs 111 Beats LONGEST at 119 BPM at 04:51:07 2021-02-20 3 Beats FASTEST at 140 BPM at 18:33:47 2021-02-19 HEART RATES 59 MIN at 15:03:34 2021-02-19 88 AVG 135 MAX at 18:39:15 2021-02-19 LONGEST RR 1.3440 secs at 10:35:27 2021-02-20 S-T LEVELS Channel 1 - 128 mm at 15:01:00 2021-02-19 - 128 mm at 15:01:00 2021-02-19 Channel 2 - 128 mm at 15:01:00 2021-02-19 - 128 mm at 15:01:00 2021-02-19 Channel 3 - 128 mm at 03:42:01 -- - 128 mm at 03:42:01 Basic rhythm Normal sinus rhythm No long pause or profound bradycardia Baseline BBB Frequent Premature atrial complexes Frequent runs of SVE, s/o of ectopic or paroxysmal atrual tachycardia, longest 119 beats No diary submitted Referred By: Lokesh Zamora Overread By: MANISH SOTO MD
== END ==
LOC: HO.CARD 14:27
PROVIDERS: Visit Provider Internal Medicine Cardiovascular Disease
DX: R00.0 Tachycardia, unspecified (principal)
CPT/HCPCS: 93226

== ENCOUNTER 2021-03-06 22:39 | Inpatient (IN) | payer MEDICARE, OTHER, SELFPAY ==
--- NOTE | ~2021-03-06 | CT_ITS ---
EXAMINATION: CT HEAD WITHOUT CONTRAST CLINICAL INFORMATION: Unwitnessed fall. Head injury. COMPARISON: 08/27/2020 TECHNIQUE: Contiguous axial imaging was performed from the skull base to vertex without intravenous contrast. This CT examination was performed using dose optimization techniques as appropriate, variously including the following: * Automated exposure control * Adjustment of mA and/or kV according to patient size (this includes techniques or standardized protocols for targeted exams where dose is matched to indication/reason for exam; i.e. extremities or head) Use of iterative reconstruction technique DLP: 1010 mGy-cm. FINDINGS: There is no evidence of acute intracranial hemorrhage or territorial infarction. No abnormal mass effect or midline shift is seen. Swann to white matter differentiation is well preserved. No extra-axial fluid collections are identified. No hydrocephalus. Proportional prominence of the ventricles and sulcal spaces is consistent with mild volume loss. Patchy periventricular and deep white matter hypoattenuation is consistent with mild small vessel ischemic changes. The osseous structures and soft tissues are normal. The mastoid air cells and visualized portions of the paranasal sinuses are well aerated. CT/CT head/brain wo con IMPRESSION: No acute intracranial pathology. Mild volume loss with small vessel ischemic change.
--- NOTE | ~2021-03-06 | XR_ITS ---
EXAMINATION: XR CHEST CLINICAL INFORMATION: Cough. Rule out pneumonia. COMPARISON: 09/25/2020 TECHNIQUE: Frontal view of the chest was obtained. FINDINGS: Left chest wall dual-lead pacer in place. Cardiac leads overlie the chest. The lungs are well expanded. Patchy opacities are seen at both lung bases. This has a similar appearance to the prior study. This likely corresponds to known previously visualized pulmonary nodules. No additional consolidation. No pleural effusion. No pneumothorax. The cardiomediastinal silhouette is unchanged, with a tortuous aorta. XR/XR chest 1V IMPRESSION: Bibasilar opacities correspond to the previously visualized known pulmonary nodules. No new consolidation.
[2021-03-06 22:55] VITALS: BP 101/71; BP 122/79; PULSE 109; PULSE 124; RESP 22; TEMP 39.8; O2SAT 96; BMI 20.1
--- NOTE | 2021-03-06 23:00 | PC.NURSE ---
PT TO ED VIA AMBULANCE FROM HOME AFTER FINDING PT AFTER PASSING OUT. PT ARRIVES ALERT, RESPIRATIONS EASY, N/L. SKIN W/D. PT CHG INTO GOWN AND MD AT BEDSIDE WITH PT.
--- NOTE | 2021-03-06 23:09 | ECG_ITS ---
Test Reason : SEPTIC Blood Pressure : / mmHG Vent. Rate : 108 BPM Atrial Rate : 108 BPM P-R Int : 152 ms QRS Dur : 164 ms QT Int : 404 ms P-R-T Axes : 000 -56 104 degrees QTc Int : 541 ms Sinus tachycardia with Ventricular-paced rhythm Abnormal ECG When compared with ECG of 25-SEP-2020 21:12, Sinus rhythm has replaced Electronic ventricular pacemaker Referred By: Jorge A Abdi Electronically Signed By:MANISH SOTO MD
--- NOTE | 2021-03-06 23:10 | ED_ITS ---
HPI - General Adult General Chief complaint: General Medical Stated complaint: ams ? fall Time Seen by Provider: 03/06/21 22:54 Source: patient and family (, Augusta) Mode of arrival: EMS Limitations: altered mental status History of Present Illness HPI narrative: 80-year-old male who is brought emergency department by ambulance for evaluation of fall and possible head injury. The patient was able to tell m e that he fell this evening and was unable to get up but was not able to give any details about the event. I did discuss the patient's presentation with his , Augusta. Augusta states that over the past 3 months the patient has been sleeping more than usual. He gets up at 1:00 a.m. in the afternoon and then goes back to bed. He has dinner and then goes back to bed after dinner. Today he followed his usual routine. Right after dinner he got a call from his nephew and spoke to his nephew for 20-30 minutes. His states that he was in the bedroom and he then called for help. She found the patient sitting on the floor of the bedroom with his head leaning against the nightstand. The patient's neighbor came over and helped him get back in bed. One the patient got in bed he appeared to pass out and was not himself. The therefore called an ambulance and had her brought to the emergency department for evaluation. The states that he has had a cough for several months which is nonproductive. He was not ill in any other way recently. The patient has not had a COVID-19 infection . He has not had a COVID-19 vaccination and his states that he does not trust the vaccine. Related Data Home Medications Medication Instructions Recorded Confirmed No Known Home Meds 02/05/21 02/05/21 Allergies Allergy/AdvReac Type Severity Reaction Status Date / Time Penicillins Allergy Anaphylaxis Verified 09/26/20 00:14 Review of Systems Review of Systems: Yes all other systems are reviewed and are negative PMFSH Past Medical History PMFSH Narrative: The patient lives at home with his . He denies tobacco, alcohol and drug use. Medical History Complete heart block No known problems Pacemaker Social History Social History Household Members: Significant Other Housing: House Do you presently have visiting nurse or other home services: No Alcohol intake: never Smoking Status: Former smoker Advance Directives: No Advance Directives Information Provided: No service: Yes Current occupational status: retired Physical Exam Vital Signs: Vital Signs: Last Vital Signs Temp 103.7 F H 03/06/21 22:55 Pulse 102 H 03/06/21 23:57 Resp 29 H 03/06/21 23:57 BP 105/69 03/06/21 23:57 Pulse Ox 97 03/06/21 23:57 Body Mass Index 20.1 Const: Other: Elderly male, has a productive sounding cough, he is oriented to person and place, he was able to tell me why he came to the emergency department but cannot give me specific details of his fall. He does not appear to be in distress. Orientation/consciousness: oriented to person and oriented to place HENMT: Head: Yes normal to inspection, Yes normocephalic and Yes atraumatic Ears: external ears normal General nose exam: Normal external nose present Face and sinus: Yes normal facial exam Mouth: Normal oral and palatal mucosa present Throat: Yes posterior oropharynx normal Eyes: Periorbital: periorbital findings normal Eyelids: Yes eyelids normal Conjunctivae: conjunctivae normal Sclerae: sclerae normal Corneas: corneas normal Pupils: Equal, round and reactive pupils present Direct Ophthalmoscopy: normal light reflex Neck: Neck: Yes full ROM, Yes no lymphadenopathy, Yes no meningeal signs, Yes trachea midline and Yes supple Chest: Chest palpation & inspection: normal inspection of the chest and normal palpation of entire chest wall Resp: Effort & Inspection: normal respiratory effort and able to speak in complete sentences Auscultation: clear to auscultation bilaterally Cardio: Rate: regular rate Rhythm: regular rhythm Heart sounds: S1 normal heart sound present, S2 normal heart sound present and no murmurs GI: Inspection: Yes normal to inspection Palpation (GI): Soft to palpation, nontender, no guarding, not rigid and No hepatosplenomegaly present : General: Yes no CVA tenderness Back/Spine/Pelvis: Back: no CVA tenderness Cervical Spine: normal cervical lordosis Thoracic/Lumbar Spine: thoracic and lumbar spine normal to inspection Skin: Lesions: no lesions Rashes: no rashes Wounds: no wounds Neuro: General: oriented to person, oriented to place and no meningeal signs Cranial nerves: Yes CN's II-XII intact bilaterally and Yes Equal, round and reactive pupils present Cognition (Neuro): normal cognition Motor exam (neuro): 5/5 motor strength present throughout Extrem: General: Yes normal to inspection and Yes full ROM Psych: Appearance: well kempt Attitude: cooperative Thought process: Normal thought process present Thought content: Normal thought content present Course Course Course Narrative: 80-year-old male presents emergency department for evaluation of what unwitnessed fall with possible head injury. The patient's states that the patient has had increased somnolence over the past 3 months and has been spending most of the day in bed. The patient does walk with a cane and he had an unwitnessed fall in his bedroom. His physical examination revealed that he was awake and able to give some history but lacked insight as to the details of why he was here. Vital signs revealed a normal blood pressure of 101/71 with tachycardia with a pulse of 109 tachypnea with respiratory of 22 and a fever of 103.7? F. The patient does have a productive sounding cough otherwise exam was unremarkable. A CBC, CMP, lipase, troponin, lactate, urinalysis and blood cultures x2. EKG, two view chest x-ray, CT scan of the brain. Patient was ordered to get normal saline bolus 30 milliliters/kilogram and Tylenol orally for his fever. 0216: The patient did meet SIRS criteria with an elevated temperature and elevated respiratory rate. The patient's laboratory evaluation did reveal low platelet count but this is chronic. The patient's urine revealed too numerous to count white blood cells and 3+ bacteria which is the source of his febrile illness. 1 g IV. Patient had normal renal function and no documented hyp otension. The patient's lactic acid was not elevated at 1.1. At this time the patient does not meet sepsis criteria. The patient did have an elevated troponin of 58.2. I will obtain a 3 hour troponin at 3:00 a.m.. I will discuss the patient's presentation with the covering hospitalist. 0242: I did discuss the patient's for the patient with the covering hospitalist and the patient will be admitted for further management. Medical Decision Making Lab Data Result diagrams: 03/06/21 23:51 03/06/21 23:51 Labs: Lab Results 03/06/21 03/06/21 03/06/21 Range/Units 23:51 23:51 23:51 WBC 8.0 (4.8-10.8) X10*3/uL RBC 3.72 L (4.60-5.80) X10*6/uL Hgb 10.9 L (14.0-18.0) g/dl Hct 34.0 L (42-52) % MCV 91.4 (80-98) fL MCH 29.3 (27.0-33.0) pg MCHC 32.1 (31.0-36.0) g/dl RDW 14.8 (11.0-16.0) % Plt Count 145 L D (160-400) X10*3/uL MPV 14.2 H (9.4-12.4) fL Immature Gran % (Auto) 0.2 (0.0-0.4) % Neut % (Auto) 89.4 H (45-73) % Lymph % (Auto) 3.2 L (20-40) % [place] % (Auto) 6.6 (2-11) % Eos % (Auto) 0.2 (0-4) % Baso % (Auto) 0.4 (0-2) % Lymph # (Auto) 0.3 L (1.2-4.9) X10*3/uL [place] # (Auto) 0.5 (0.1-1.2) X10*3/uL Eos # (Auto) 0.0 (0.0-0.4) X10*3/uL Baso # (Auto) 0.0 (0.0-0.2) X10*3/uL Abs Immat Gran (auto) 0.02 (0.00-0.03) X10*3/uL Absolute Neuts (auto) 7.2 (2.0-8.3) X10*3/uL Absolute Nucleated RBC 0.000 (0.0-0.012) X10*3/uL Nucleated RBC % (auto) 0.0 (0.0-0.2) /100WBC Smear Tech's Comments VERIFIED Sodium 139 (135-145) mmol/L Potassium 3.4 (3.3-5.1) mmol/L Chloride 104 (96-108) mmol/L Carbon Dioxide 25 (22-29) mmol/L Anion Gap 13 (12-20) BUN 17 H (9-16) mg/dL Creatinine 1.00 (0.5-1.4) mg/dL Estim Creat Clear Calc 57.1 Estimated GFR > 60 Random Glucose 111 (60-115) mg/dL Lactic Acid (0.5-2.0) mmol/L Calcium 8.6 D (8.4-10.2) mg/dL Total Bilirubin 0.4 (0.0-1.0) mg/dL AST 12 (5-37) U/L ALT 8 (0-40) U/L Alkaline Phosphatase 79 (39-117) U/L Troponin I High Sens (<3.5-35.0) ng/L Total Protein 6.2 L (6.5-8.0) g/dL Albumin 3.6 (3.5-5.0) g/dL Lipase 9 (8-78) U/L Ethyl Alcohol < 10 mg/dL 03/06/21 03/06/21 Range/Units 23:51 23:51 WBC (4.8-10.8) X10*3/uL RBC (4.60-5.80) X10*6/uL Hgb (14.0-18.0) g/dl Hct (42-52) % MCV (80-98) fL MCH (27.0-33.0) pg MCHC (31.0-36.0) g/dl RDW (11.0-16.0) % Plt Count (160-400) X10*3/uL MPV (9.4-12.4) fL Immature Gran % (Auto) (0.0-0.4) % Neut % (Auto) (45-73) % Lymph % (Auto) (20-40) % [place] % (Auto) (2-11) % Eos % (Auto) (0-4) % Baso % (Auto) (0-2) % Lymph # (Auto) (1.2-4.9) X10*3/uL [place] # (Auto) (0.1-1.2) X10*3/uL Eos # (Auto) (0.0-0.4) X10*3/uL Baso # (Auto) (0.0-0.2) X10*3/uL Abs Immat Gran (auto) (0.00-0.03) X10*3/uL Absolute Neuts (auto) (2.0-8.3) X10*3/uL Absolute Nucleated RBC (0.0-0.012) X10*3/uL Nucleated RBC % (auto) (0.0-0.2) /100WBC Smear Tech's Comments Sodium (135-145) mmol/L Potassium (3.3-5.1) mmol/L Chloride (96-108) mmol/L Carbon Dioxide (22-29) mmol/L Anion Gap (12-20) BUN (9-16) mg/dL Creatinine (0.5-1.4) mg/dL Estim Creat Clear Calc Estimated GFR Random Glucose (60-115) mg/dL Lactic Acid 1.1 (0.5-2.0) mmol/L Calcium (8.4-10.2) mg/dL Total Bilirubin (0.0-1.0) mg/dL AST (5-37) U/L ALT (0-40) U/L Alkaline Phosphatase (39-117) U/L Troponin I High Sens 58.2 H D (<3.5-35.0) ng/L Total Protein (6.5-8.0) g/dL Albumin (3.5-5.0) g/dL Lipase (8-78) U/L Ethyl Alcohol mg/dL Discharge Plan Discharge Prescriptions: No Action No Known Home Meds RF: 0
[2021-03-06] MEDS: Acetaminophen 325 MG TABLET 975 MG PO (23:30)
--- NOTE | 2021-03-06 23:45 | PC.NURSE ---
IV PLACED TO RAC, LABS DRAWN TO LAB, NS UP AND RUNNING W/O SITE INTACT. PT IS NOT FOLLOWING SIMPLE COMMANDS OR ANSWER QUESTIONS. NS UP AND RUNNING, SITE INTACT. WILL CONTINUE TO MONITOR PT.
[2021-03-06 23:57] VITALS: BP 105/69; PULSE 102; RESP 29; O2SAT 97
[2021-03-07] VITALS (13 sets, daily range): BP systolic 75–130; BP diastolic 38–85; PULSE 60–93; RESP 15–20; TEMP 36.4–38.2; O2SAT 92–99
[2021-03-07] LABS: Basophils Percent Auto 0.4 % (0-2); Eosinophils Percent Auto 0.2 % (0-4); Hemoglobin 10.9 g/dl (14.0-18.0); Imm Gran Abs Auto 0.02 X10*3/uL (0.00-0.03); Imm Gran Pct Auto 0.2 % (0.0-0.4); Lymphocytes Absolute Auto 0.3 X10*3/uL (1.2-4.9); Lymphocytes Percent Auto 3.2 % (20-40); MANUAL DIFF FLAG SCAN; Mean Corpuscular HGB Conc 32.1 g/dl (31.0-36.0); Mean Corpuscular Hemoglobin 29.3 pg (27.0-33.0); Mean Corpuscular Volume 91.4 fL (80-98); Mean Platelet Volume 14.2 fL (9.4-12.4); Monocytes Absolute Auto 0.5 X10*3/uL (0.1-1.2); Monocytes Percent Auto 6.6 % (2-11); Neutrophils Absolute Auto 7.2 X10*3/uL (2.0-8.3); Neutrophils Percent Auto 89.4 % (45-73); Platelet Count 145 X10*3/uL (160-400); Red Blood Count 3.72 X10*6/uL (4.60-5.80); Red Cell Distribution Width 14.8 % (11.0-16.0); SCAN SMEAR FLAG 1
[2021-03-07 00:20] LABS: Lactic Acid 1.1 mmol/L (0.5-2.0); SLIDE REVIEW VERIFIED
[2021-03-07 00:23] LABS: Ethanol < 10 mg/dL
[2021-03-07] MEDS: Haloperidol Lactate 5 MG/ML VIAL IV (00:24)
[2021-03-07] MEDS: 0.9 % Sodium Chloride 2,022 ML 2022 ML IVCONT (00:25)
[2021-03-07 00:26] LABS: Alanine Aminotransferase 8 U/L (0-40); Albumin Level 3.6 g/dL (3.5-5.0); Alkaline Phosphatase 79 U/L (39-117); Anion Gap 13 (12-20); Aspartate Amino Transferase 12 U/L (5-37); Bilirubin Total 0.4 mg/dL (0.0-1.0); Blood Urea Nitrogen 17 mg/dL (9-16); Calcium 8.6 mg/dL (8.4-10.2); Carbon Dioxide 25 mmol/L (22-29); Chloride 104 mmol/L (96-108); Creatinine Clr Calc Pharmacy 57.1; Estimated Glomerular Filt Rate > 60; Glucose Random 111 mg/dL (60-115); Lipase 9 U/L (8-78); Potassium 3.4 mmol/L (3.3-5.1); Sodium 139 mmol/L (135-145); Total Protein 6.2 g/dL (6.5-8.0)
[2021-03-07] MEDS: cefTRIAXone sodium 1 GM in 0.9 % Sodium Chloride 50 ML IV ×2 (00:27→20:16)
--- NOTE | 2021-03-07 00:30 | PC.NURSE ---
PT MEDICATED PER EMAR.
[2021-03-07 00:35] LABS: Troponin-I High Sensitivity 58.2 ng/L (<3.5-35.0)
[2021-03-07 00:42] LABS: Influenza A PCR NEGATIVE (Negative); Influenza B PCR NEGATIVE (Negative); Resp Syncy Virus RNA Qual PCR NEGATIVE (Negative); SARS COV2 PCR INHOUSE NEGATIVE (Negative)
--- NOTE | 2021-03-07 01:30 | PC.NURSE ---
RECTAL TEMP OBTAINED 102.3, MEDICATED PER EMAR FOR FEVER.
--- NOTE | 2021-03-07 02:27 | PM.IMHP ---
History of Present Illness Date of Service: 03/07/21 Chief Complaint: fall 80-year-old male with a past medical history of BPH, history of complete heart block status post pacemaker presented to the hospital today with a chief complaint of fall. Most of the history obtained from the patient's and ER staff. Reportedly patient called in and when found him he was on the side of the bed sitting; patient's was unsure if he hit his head. Mentioned that patient had a chronic cough. Denies any chest pain palpitations. Denies any lightheadedness dizziness. Denies any numbness tingling. Per patient's patient is confused today. Review of all other systems is negative except mentioned above ER course: Per ER team exam was essentially benign, urinalysis abnormal consistent with UTI-given ceftriaxone. Cultures were sent. EKG was nonischemic. Troponin slightly high. CT head showed no acute findings. [facility] Medical History (Updated 03/18/21 @ 16:52 by Wendy Moran MD) Abnormal weight loss Complete heart block Folate deficiency History of complete heart block Microcytic hypochromic anemia No known problems Vitamin B12 deficiency anemia Vitamin D deficiency Surgical History (Updated 03/17/21 @ 13:47 by Wendy Moran MD) History of permanent cardiac pacemaker placement Social History Household Members: Spouse Housing: House Do you presently have visiting nurse or other home services: No Alcohol intake: never Smoking Status: Former smoker Second Hand Smoke Exposure: No service: Yes Current occupational status: retired Meds Allergies Allergy/AdvReac Type Severity Reaction Status Date / Time Penicillins Allergy Anaphylaxis Verified 03/17/21 13:44 Active Medications: Current Medications Generic Name Dose Route Start Last Admin Trade Name Freq PRN Reason Stop Dose Admin Acetaminophen 650 mg 03/07/21 02:23 Acetaminophen 325 Mg Tablet PO Q6H PRN Pain, Mild (Pain Scale 1-3) Docusate Sodium 100 mg 03/07/21 09:00 Docusate Sodium 100 Mg Capsule PO BID ABIOLA Enoxaparin Sodium 40 mg 03/07/21 02:30 Enoxaparin Sodium 40 Mg/0.4 Ml Syringe SUBCUT Q24H [facility] Ceftriaxone Sodium 1 gm/ 50 mls @ 100 mls/hr 03/07/21 02:30 Sodium Chloride IV Q24H ABIOLA Magnesium Hydroxide 30 ml 03/07/21 02:23 Milk Of Magnesia 30 Ml Oral.Susp PO DAILY PRN Constipation Nitroglycerin 0.4 mg 03/07/21 02:23 Nitroglycerin 0.4 Mg Tab.Subl SUBLINGUAL Q5M PRN Chest Pain Pharmacy Consult 1 each 03/07/21 02:20 Consult Rx Perform Med Rec MISCELLANE ONCE PRN Consult order Sodium Chloride 3 ml 03/07/21 08:00 0.9 % Sodium Chloride Flush 3 Ml Syringe IVFLUSH QSHIFT [facility] Physical Exam Vital Signs and Narrative: Vital Signs: Last Vital Signs Temp 103.7 F H 03/06/21 22:55 Pulse 102 H 03/06/21 23:57 Resp 29 H 03/06/21 23:57 BP 105/69 03/06/21 23:57 Pulse Ox 97 03/06/21 23:57 Body Mass Index 20.1 Gen: Appears be in no acute distress HEENT: NCAT, Moist mucosa. Pulmonary: Vesicular breath sounds, fair air entry CVS: Normal S1-S2 Abdomen: BS+, Soft, Nontender Extremities: Warm well perfused Neuro: Alert and awake. Results Labs CBC and Chem 7: 03/07/21 08:35 03/07/21 08:35 Labs: Laboratory Results - last 24 hr 03/06/21 03/06/21 03/06/21 23:51 23:51 23:51 MCV 91.4 MCH 29.3 MCHC 32.1 RDW 14.8 Plt Count 145 L D MPV 14.2 H Immature Gran % (Auto) 0.2 Neut % (Auto) 89.4 H Lymph % (Auto) 3.2 L [place] % (Auto) 6.6 Eos % (Auto) 0.2 Baso % (Auto) 0.4 Lymph # (Auto) 0.3 L [place] # (Auto) 0.5 Eos # (Auto) 0.0 Baso # (Auto) 0.0 Abs Immat Gran (auto) 0.02 Absolute Neuts (auto) 7.2 Absolute Nucleated RBC 0.000 Nucleated RBC % (auto) 0.0 Smear Tech's Comments VERIFIED Anion Gap 13 Estim Creat Clear Calc 57.1 Estimated GFR > 60 Random Glucose 111 Lactic Acid Calcium 8.6 D Total Bilirubin 0.4 AST 12 ALT 8 Alkaline Phosphatase 79 Troponin I High Sens Total Protein 6.2 L Albumin 3.6 Lipase 9 Ethyl Alcohol < 10 03/06/21 03/06/21 23:51 23:51 MCV MCH MCHC RDW Plt Count MPV Immature Gran % (Auto) Neut % (Auto) Lymph % (Auto) [place] % (Auto) Eos % (Auto) Baso % (Auto) Lymph # (Auto) [place] # (Auto) Eos # (Auto) Baso # (Auto) Abs Immat Gran (auto) Absolute Neuts (auto) Absolute Nucleated RBC Nucleated RBC % (auto) Smear Tech's Comments Anion Gap Estim Creat Clear Calc Estimated GFR Random Glucose Lactic Acid 1.1 Calcium Total Bilirubin AST ALT Alkaline Phosphatase Troponin I High Sens 58.2 H D Total Protein Albumin Lipase Ethyl Alcohol Imaging Radiologist's Impressions: Impressions Chest X-Ray 03/07/21 00:00 IMPRESSION: Bibasilar opacities correspond to the previously visualized known pulmonary nodules. No new consolidation. Head CT 03/07/21 00:00 IMPRESSION: No acute intracranial pathology. Mild volume loss with small vessel ischemic change. Assessment and Plan (1) UTI (urinary tract infection): 80-year-old male with a past medical history of BPH, history of complete heart block status post pacemaker, presented to the hospital with a chief complaint of fall. Patient noted to be febrile in the ER; urinalysis abnormal consistent with UTI. Fall: Unwitnessed. CT head showed no acute findings. Exam benign. PT/OT eventually Confusion: Likely toxic metabolic encephalopathy. Patient currently alert and awake. Continue to monitor. UTI: Continue ceftriaxone. Follow up cultures. Urinary retention/Microscopic hematuria: Likely the setting of UTI. Pham catheter was placed. Urology consult. Elevated troponins: Patient denies any chest pain. EKG is nonischemic. Will obtain echocardiogram. Cardiology consult. Follow-up troponin pending. DVT prophylaxis: Lovenox Code status: Full code
--- NOTE | 2021-03-07 04:00 | PC.NURSE ---
NS UP AND RUNNING W/O SITE INTACT. FLUIDS GIVEN FOR SEPSIS PROTOCOL. WILL CONTINUE TO MONITOR PT.
--- NOTE | 2021-03-07 05:10 | PC.NURSE ---
AFTER 3L OF NS PT'S B/P UP TO 139/85 HR 94, PT DENIES ANY COMPLAINTS AT THIS TIME. PT AWAITING FOR ROOM ASSIGNMENT. IV REPLACED TO LEFT UPPER ARM. SITE INTACT.
[2021-03-07] MEDS: 0.9 % Sodium Chloride 500 ML IV (05:28)
[2021-03-07 05:49] LABS: Troponin-I High Sensitivity 63.5 ng/L (<3.5-35.0)
--- NOTE | 2021-03-07 06:17 | PC.NURSE ---
PT AWAKE AND SPEAKING IN SENTENCES. PT APPEARS TO BE MORE AWAKE THAN PREVIOUS. PT FOLLOWING SIMPLE COMMANDS. RESPIRATIONS EASY, N/L. SKIN W/D. WILL CONTINUE TO MONITOR PT.
--- NOTE | 2021-03-07 07:30 | CA_ITS ---
Transthoracic Echocardiogram Patient (Last, First, Middle): Len Gillespie, Gender: Male Date of : 1940 Age: 80 Procedure Date: 03/07/2021 Procedure Type: Transthoracic Echocardiogram Location: [facility] [place] Height: 190.5 cm Weight: 81.19 kg BSA: 2.09 m2 Heart Rate: bpm BP: 122 / 60 mmHg Hook And Eye Machine Operator: Referring MD: Rene Mack MD Symptoms: high troponin Study Quality: Fair, Good Apical views ECG Rhythm: Atrial Fibrillation Conclusions: - Moderately reduced LVEF. - Septal wall motion likely due to RV pacing and LBBB. - Inferior wall akinesis. - Limited 2-D assessment of the valves. Findings Left Ventricle Normal left ventricular cavity size. There is normal left ventricular wall thickness. The left ventricular systolic function is moderately decreased. The visually estimated ejection fraction is between 30-35%. There is evidence of regional wall motion abnormalities. There is paradoxical septal motion consistent with a left bundle branch block. Diastolic function is indeterminate on the basis of available data. Wall Motion Rest Echo Findings The inferior wall is akinetic. The apical septum, mid inferoseptal, and mid anteroseptal segments are dyskinetic. Right Ventricle Normal right ventricular cavity size and systolic function. Atria The left atrium is likely dilated. Aortic Valve The aortic valve was not well visualized. There is no aortic valve stenosis. There is no aortic valve regurgitation. Mitral Valve The mitral valve appears normal. There is trace mitral valve regurgitation. There is no mitral valve stenosis. Pulmonic Valve The pulmonic valve was not well visualized. Tricuspid Valve Normal tricuspid valve structure and function. There is trace tricuspid valve regurgitation. Indeterminate right atrial pressure. Great Vessels All visible segments of the aorta are normal in size. The pulmonary artery was not well visualized. Venous The inferior vena cava was not well visualized. Pericardium/Pleural There is no evidence of pericardial effusion. Prior Study Comparison No prior study available for comparison. Measurements 2D Linear Measurements IVSd: 1.02 0.6-0.9/0.6-1.0 cm LVIDd: 6.01 3.9-5.3/4.2-5.9 cm LVIDd Index: 2.88 2.4-3.2/2.2-3.1 cm/m2 LVIDs: 5.24 2.0-3.6 cm LVPWd: 1.13 0.7-1.1 cm Ao Root: 2.90 2.1-3.5 cm LA Diam: 3.80 2.7-3.8/3.0-4.0 cm LAIDs Index: 1.82 1.5-2.3 cm/m2 LV Mass: 339.31 67-162/88-224 g LV Mass Index: 162.35 43-95/49-115 g/m2 LVOT Diam: 2.00 3.0+(-)1.3 cm 2D Systolic Function EF 4C: 13.50 >55% EF 2C: 35.40 >55% Mitral Valve MV Pk E: 0.50 MV PK A: 1.09 MV Decel Time: 222.00 E/A: 0.50 E'Lateral: 8.80 E'Medial: 7.74 E/E' Med: 6.50 E/E' Lat: 5.70 PHT: 65.00 MVA PHT: 3.38 Decel [place]: 2.28 Aortic Valve AoV Pk Bryson: 1.42 AoV Mn Bryson: 0.95 AoV VTI: 0.31 AoV Pk Grad: 8.00 Aov Mn Grad: 4.00 SUNNY Cont.VTI: 1.92 LVOT LVOT Pk Bryson: 0.92 LVOT Mn Bryson: 0.52 LVOT VTI: 0.19 LVOT Pk Grad: 3.00 LVOT Mn Grad: 1.00 LVOT Diam: 2.00 LVOT Area: 3.14 Diastolic Function MV Pk E: 0.50 MV Pk A: 1.09 E/A: 0.50 E'Medial: 7.74 E/E' Med: 6.50 E' Laterial: 8.80 E/E' Lat: 5.70 Tricuspid Valve TR Pk Bryson: 2.49 TR Pk Grad: 25.00 RA Press: 15.00 Great Vessels Aorta Ao Root-2D: 2.90 2.0-3.7 cm Pulmonary Valve PV Pk Bryson: 0.96 Peak PV Grad: 4.00 Updated in Other Vendor System with Status of Final Lokesh Zamora MD electronically signed on 03/08/2021 6:00:06 AM with status of Final
[2021-03-07] MEDS: Docusate Sodium 100 MG CAPSULE PO ×2 (08:00→20:17)
[2021-03-07] MEDS: Enoxaparin Sodium 40 MG/0.4 ML SYRINGE SUBCUT (08:00)
[2021-03-07] MEDS: 0.9 % Sodium Chloride Flush 3 ML SYRINGE IVFLUSH ×3 (08:00→20:17)
--- NOTE | 2021-03-07 08:14 | PC.NURSE ---
[place] text to provider Edgardo to clarify VS orders pt has one for q30 mins and one for q4 hours, stated we can go to q4 hours.
[2021-03-07 08:48] LABS: Basophils Percent Auto 0.2 % (0-2); Eosinophils Percent Auto 0.2 % (0-4); Hemoglobin 9.6 g/dl (14.0-18.0); Imm Gran Abs Auto 0.02 X10*3/uL (0.00-0.03); Imm Gran Pct Auto 0.4 % (0.0-0.4); Lymphocytes Absolute Auto 0.3 X10*3/uL (1.2-4.9); Lymphocytes Percent Auto 5.6 % (20-40); MANUAL DIFF FLAG SCAN; Mean Corpuscular Hemoglobin 28.7 pg (27.0-33.0); Mean Corpuscular Volume 92.8 fL (80-98); Monocytes Absolute Auto 0.4 X10*3/uL (0.1-1.2); Monocytes Percent Auto 8.5 % (2-11); Neutrophils Absolute Auto 4.4 X10*3/uL (2.0-8.3); Neutrophils Percent Auto 85.1 % (45-73); Platelet Count 123 X10*3/uL (160-400); Red Cell Distribution Width 15.1 % (11.0-16.0); SCAN SMEAR FLAG 1; White Blood Count 5.2 X10*3/uL (4.8-10.8)
[2021-03-07 08:49] LABS: Red Blood Count 3.34 X10*6/uL (4.60-5.80)
[2021-03-07 09:11] LABS: SLIDE REVIEW VERIFIED
[2021-03-07 09:15] LABS: Anion Gap 10 (12-20); Blood Urea Nitrogen 13 mg/dL (9-16); Calcium 7.6 mg/dL (8.4-10.2); Carbon Dioxide 24 mmol/L (22-29); Chloride 112 mmol/L (96-108); Creatinine Clr Calc Pharmacy 77.1; Estimated Glomerular Filt Rate > 60; Glucose Random 103 mg/dL (60-115); Potassium 3.5 mmol/L (3.3-5.1); Sodium 142 mmol/L (135-145)
--- NOTE | 2021-03-07 11:08 | PC.NURSE ---
Pt resting in bed in no apparent distress. VSS with mildly elevated oral temperature. Pt was seen by hospitalist this morning. It was brought to her attention that there was never a urine sample collected on this patient during this stay. Plan to obtain a urine sample when able to do so. Pt states that he does not have to urinate at this time. was updated on plan of care and pt's admission status.
--- NOTE | 2021-03-07 12:27 | HO.PM.IMPN ---
Subjective Subjective Date of Service: 03/07/21 Interval History: Patient is hard of hearing, admits that he fell down since he was not using his cane, mentions he had no head injury, denies chest pain, denies urinary symptoms, using urinal for voiding. General no headache no dizziness no fever. CVS no chest pain, no palpitation. Respiratory no cough no sob. Gastrointestinal no nausea, no vomiting, no abdominal pain Physical Exam Vital Signs: Vital Signs: Last Vital Signs Temp 100.8 F H 03/07/21 11:01 Pulse 88 03/07/21 11:01 Resp 18 03/07/21 11:01 BP 121/74 03/07/21 11:01 Pulse Ox 95 03/07/21 11:01 Body Mass Index 20.1 General testing comfortably in no acute distress. Neck no JVD. CVS regular rate rhythm, Respiratory lungs clear to auscultation, no respiratory distress, no wheeze, no rhonchi. Gastrointestinal abdomen soft, nontender, bowel sounds audible, no guarding , no rigidity. Extremities no edema. Neuro nonfocal , speech clear. Skin no rash Objective Data Current Medications Generic Name Dose Route Start Last Admin Trade Name Freq PRN Reason Stop Dose Admin Acetaminophen 650 mg 03/07/21 02:23 Acetaminophen 325 Mg Tablet PO Q6H PRN Pain, Mild (Pain Scale 1-3) Docusate Sodium 100 mg 03/07/21 09:00 03/07/21 08:00 Docusate Sodium 100 Mg Capsule PO 100 mg BID ABIOLA Administration Enoxaparin Sodium 40 mg 03/07/21 06:00 03/07/21 08:00 Enoxaparin Sodium 40 Mg/0.4 Ml Syringe SUBCUT 40 mg Q24H ABIOLA Administration Ceftriaxone Sodium 1 gm/ 50 mls @ 100 mls/hr 03/07/21 20:00 Sodium Chloride IV Q24H ABIOLA Magnesium Hydroxide 30 ml 03/07/21 02:23 Milk Of Magnesia 30 Ml Oral.Susp PO DAILY PRN Constipation Nitroglycerin 0.4 mg 03/07/21 02:23 Nitroglycerin 0.4 Mg Tab.Subl SUBLINGUAL Q5M PRN Chest Pain Pharmacy Consult 1 each 03/07/21 02:20 Consult Rx Perform Med Rec MISCELLANE ONCE PRN Consult order Sodium Chloride 3 ml 03/07/21 08:00 03/07/21 08:00 0.9 % Sodium Chloride Flush 3 Ml Syringe IVFLUSH 3 ml QSHIFT ABIOLA Administration Labs CBC & Chem 7: 03/07/21 08:35 03/07/21 08:35 Assessment and Plan (1) Elevated troponin: Status: Acute (2) Unsteady gait: Status: Acute (3) History of complete heart block: Status: Acute (4) Pacemaker: Status: Acute Assessment and Plan: 80-year-old male with a past medical history of BPH, history of complete heart block status post pacemaker, presented to the hospital with a chief complaint of fall. Patient noted to be febrile in the ER; urinalysis abnormal consistent with UTI. Unsteady gait: Likely patient had a mechanical Fall admits he did not use his cane, CT head showed no acute findings. Exam benign. Will obtain PT eval Confusion: Likely toxic metabolic encephalopathy. Patient has underlying dementia answering questions appropriately will obtain UA and culture sensitive Patient on empiric iv ceftriaxone. Patient bladder scanned 200 mL will cancel urology consult History of BPH previously was on Flomax and Proscar no home meds mentioned will ask nurse to do med reconciliation. Elevated troponins: no chest pain. EKG with no acute ischemic change, troponin elevated but flat, will cancel echocardiogram and Cardiology consult. DVT prophylaxis: Lovenox Code status: Full code
--- NOTE | 2021-03-07 12:40 | PC.NURSE ---
Requesting urine sample for patient but he continues to state that he does not have the urge to urinate. He was bladder scanned showing 200ml and this was reported to .
[2021-03-07 15:07] LABS: Glucose Urine UA NEG (NEG); Leukocyte Esterase Urine 2+ (NEG); Nitrite Urine POS (NEG); PH 5.5 (5.0-8.0); Specific Gravity - Urine 1.025 (1.005-1.025); UACC Culture Trigger YES; Urine Blood 2+ (NEG); Urine Ketones NEG (NEG); Urine Protein 2+ MG/DL (NEG-TRACE)
[2021-03-07 15:09] LABS: Color Urine RED
[2021-03-07 15:10] LABS: Appearance Urine CLOUDY
[2021-03-07 15:16] LABS: Bacteria Urine 2+ /LPF; Mucus Urine 2+ /LPF; WBC Clumps Urine NOTED; WBC Urine 50-75 /HPF (0-4)
[2021-03-08] VITALS (7 sets, daily range): BP systolic 102–152; BP diastolic 63–85; PULSE 60–122; RESP 18–20; TEMP 36.4–37.2; O2SAT 94–98
[2021-03-08] MEDS: Enoxaparin Sodium 40 MG/0.4 ML SYRINGE SUBCUT (05:47)
--- NOTE | 2021-03-08 05:57 | PC.NURSE ---
Patient's de souza cath pulled at 0550. Pt is due to void by 1200 today.
[2021-03-08] MEDS: 0.9 % Sodium Chloride Flush 3 ML SYRINGE IVFLUSH ×3 (10:47→19:41)
[2021-03-08] MEDS: Docusate Sodium 100 MG CAPSULE PO ×2 (10:47→19:40)
--- NOTE | 2021-03-08 12:03 | P.PNIM_ITS ---
Subjective Subjective Date of Service: 03/08/21 Interval History: Seen in f/u for UTI, confusion. He sounds less confused than peviously stated Review of Systems General no headache no dizziness no fever. CVS no chest pain, no palpitation. Respiratory no cough no sob. Gastrointestinal no nausea, no vomiting, no abdominal pain Neuro some confusion form dementa Physical Exam Vital Signs: Vital Signs: Last Vital Signs Temp 98 F 03/08/21 10:55 Pulse 90 03/08/21 10:55 Resp 18 03/08/21 10:55 BP 135/84 03/08/21 10:55 Pulse Ox 96 03/08/21 10:55 Body Mass Index 20.1 Const: Other: General: AO X 2, no acute distress Resp: CTA bilateral CVS: S1,S2,RRR GI: +BS, NT, no distention Skin: No rash Neuro: motor grossly intact Psych: appropriate affect Objective Data Current Medications Generic Name Dose Route Start Last Admin Trade Name Freq PRN Reason Stop Dose Admin Acetaminophen 650 mg 03/07/21 02:23 Acetaminophen 325 Mg Tablet PO Q6H PRN Pain, Mild (Pain Scale 1-3) Docusate Sodium 100 mg 03/07/21 09:00 03/08/21 10:47 Docusate Sodium 100 Mg Capsule PO 100 mg BID ABIOLA Administration Enoxaparin Sodium 40 mg 03/07/21 06:00 03/08/21 05:47 Enoxaparin Sodium 40 Mg/0.4 Ml Syringe SUBCUT 40 mg Q24H ABIOLA Administration Ceftriaxone Sodium 1 gm/ 50 mls @ 100 mls/hr 03/07/21 20:00 03/07/21 21:03 Sodium Chloride IV Infused Q24H ABIOLA Infusion Magnesium Hydroxide 30 ml 03/07/21 02:23 Milk Of Magnesia 30 Ml Oral.Susp PO DAILY PRN Constipation Nitroglycerin 0.4 mg 03/07/21 02:23 Nitroglycerin 0.4 Mg Tab.Subl SUBLINGUAL Q5M PRN Chest Pain Pharmacy Consult 1 each 03/07/21 02:20 Consult Rx Perform Med Rec MISCELLANE ONCE PRN Consult order Sodium Chloride 3 ml 03/07/21 08:00 03/08/21 10:47 0.9 % Sodium Chloride Flush 3 Ml Syringe IVFLUSH 3 ml QSHIFT ABIOLA Administration Labs CBC & Chem 7: 03/07/21 08:35 03/07/21 08:35 Microbiology Microbiology Results: Microbiology 03/07/21 15:13 Urine clean catch - Clean Catch Midstream Urine Culture - Preliminary Culture in progress. 03/06/21 23:56 Blood - Venous Blood Culture - Preliminary No growth after 24 hours. 03/06/21 23:56 Blood - Venous Blood Culture - Preliminary No growth after 24 hours. Assessment and Plan (1) Elevated troponin: Status: Acute (2) Unsteady gait: Status: Acute (3) History of complete heart block: Status: Acute (4) Pacemaker: Status: Acute Assessment and Plan: 80-year-old male with a past medical history of BPH, history of complete heart block status post pacemaker, presented to the hospital with a chief complaint of fall. Patient noted to be febrile in the ER; urinalysis abnormal consistent with UTI. Unsteady gait: Likely patient had a mechanical Fall admits he did not use his cane, likely weakness from UTI, agree PT eval eval and treating underlying UTI--culture pending, afebrile, ceftriaxone day 2 Confusion: Likely toxic metabolic encephalopathy from UTI but also has underly ing dementia answering questions appropriately ? Urinary retention--I don't think this is a problem with patient at home given completly normal renal fucntion. Will see what urology has to sa History of BPH previously was on Flomax and Proscar no home meds mentioned will ask nurse to do med reconciliation. Elevated troponins: no chest pain. EKG with no acute ischemic change, troponin elevated but flat, hold off echocardiogram and Cardiology consult. DVT prophylaxis: Lovenox Code status: Full code
--- NOTE | 2021-03-08 12:43 | MHC.CM.PN ---
CM MET WITH PT WHO REPORTS HE IS AWARE THE PT RECOMMENDED STR BUT HE IS NOT INTERESTED. PT REPORTS HE PLANS TO DC HOME TODAY AND HIS WILL DRIVE HIM. PT REPORTS HE IS UNSURE WHO HIS PCP IS BUT THINKS IT WAS CHANGED TO [facility]. CM REVIEWED PTS MEDICARE AND RIGHTS AND OFFERED COPIES HOWEVER, PT REQUESTS THEY BE MAILED TO HIS HOME. CURRENT DC PLAN IS HOME WITH [facility] FOR SN[facility]PT HOWEVER, CM WILL CONTACT PTS TO ENSURE SAFE DC PLAN PER PT, HIS WILL PROVIDE TRANSPORTATION AT DC. CM WILL CONFIRM
[2021-03-08] MEDS: cefTRIAXone sodium 1 GM in 0.9 % Sodium Chloride 50 ML IV (19:41)
--- NOTE | 2021-03-08 23:44 | PC.NURSE ---
Patient straight cath by day RN around 1530 for 750ml urine. Pt has not voided since. Pt bladder scanned at 2215 for 697ml, hospitalist notified and de souza ordered. De Souza placed, pt tolerated well, drained 450ml dark gisell urine almost immediatly.
[2021-03-09 03:19] VITALS: BP 129/76; PULSE 85; RESP 18; TEMP 36.9; O2SAT 95
[2021-03-09] MEDS: Enoxaparin Sodium 40 MG/0.4 ML SYRINGE SUBCUT (06:08)
[2021-03-09 07:08] VITALS: BP 142/88; PULSE 90; RESP 20; TEMP 36.8; O2SAT 96
[2021-03-09] MEDS: 0.9 % Sodium Chloride Flush 3 ML SYRINGE IVFLUSH ×3 (08:14→23:57)
[2021-03-09] MEDS: Docusate Sodium 100 MG CAPSULE PO ×2 (09:33→20:00)
[2021-03-09 11:27] VITALS: BP 138/95; PULSE 88; RESP 20; TEMP 36.4; O2SAT 96
--- NOTE | 2021-03-09 13:33 | HO.PM.IMPN ---
Subjective Subjective Date of Service: 03/09/21 Interval History: Seen in f/u for UTI, confusion. He is no longer confused, however he is having trouble with urinary and de souza cathere was put back Review of Systems General no headache no dizziness no fever. CVS no chest pain, no palpitation. Respiratory no cough no sob. Gastrointestinal no nausea, no vomiting, no abdominal pain Neuro he is not confused now Physical Exam Vital Signs: Vital Signs: Last Vital Signs Temp 97.6 F 03/09/21 11:27 Pulse 88 03/09/21 11:27 Resp 20 03/09/21 11:27 BP 138/95 H 03/09/21 11:27 Pulse Ox 96 03/09/21 11:27 Body Mass Index 20.1 Const: Other: General: AO X 3, no acute distress Resp: CTA bilateral CVS: S1,S2,RRR GI: +BS, NT, no distention Skin: No rash Neuro: motor grossly intact Psych: appropriate affect Objective Data Current Medications Generic Name Dose Route Start Last Admin Trade Name Mod[place]q PRN Reason Stop Dose Admin Acetaminophen 650 mg 03/07/21 02:23 Acetaminophen 325 Mg Tablet PO Q6H PRN Pain, Mild (Pain Scale 1-3) Docusate Sodium 100 mg 03/07/21 09:00 03/09/21 09:33 Docusate Sodium 100 Mg Capsule PO 100 mg BID ABIOLA Administration Enoxaparin Sodium 40 mg 03/07/21 06:00 03/09/21 06:08 Enoxaparin Sodium 40 Mg/0.4 Ml Syringe SUBCUT 40 mg Q24H ABIOLA Administration Ceftriaxone Sodium 1 gm/ 50 mls @ 100 mls/hr 03/07/21 20:00 03/08/21 20:51 Sodium Chloride IV Infused Q24H ABIOLA Infusion Magnesium Hydroxide 30 ml 03/07/21 02:23 Milk Of Magnesia 30 Ml Oral.Susp PO DAILY PRN Constipation Nitroglycerin 0.4 mg 03/07/21 02:23 Nitroglycerin 0.4 Mg Tab.Subl SUBLINGUAL Q5M PRN Chest Pain Pharmacy Consult 1 each 03/07/21 02:20 Consult Rx Perform Med Rec MISCELLANE ONCE PRN Consult order Sodium Chloride 3 ml 03/07/21 08:00 03/09/21 08:14 0.9 % Sodium Chloride Flush 3 Ml Syringe IVFLUSH 3 ml QSHIFT ABIOLA Administration Labs CBC & Chem 7: 03/07/21 08:35 03/07/21 08:35 Microbiology Microbiology Results: Microbiology 03/07/21 15:13 Urine clean catch - Clean Catch Midstream Urine Culture - Preliminary Yeast 03/06/21 23:56 Blood - Venous Blood Culture - Preliminary No growth after 48 hours. 03/06/21 23:56 Blood - Venous Blood Culture - Preliminary No growth after 48 hours. Assessment and Plan (1) Elevated troponin: Status: Acute (2) Unsteady gait: Status: Acute (3) History of complete heart block: Status: Acute (4) Pacemaker: Status: Acute Assessment and Plan: 80-year-old male with a past medical history of BPH, history of complete heart block status post pacemaker, presented to the hospital with a chief complaint of fall. Patient noted to be febrile in the ER; urinalysis abnormal consistent with UTI. Unsteady gait, I suspect this is related to UTI, he seems better now, PT will see him tomorrow UTI--culture pending, afebrile, ceftriaxone day 3. Change to ceftin. Yease in urine, not immunocompromised, Confusion: Likely toxic metabolic encephalopathy from UTI, he's back to baseline and lucid ? Urinary retention--I don't think this is a problem with patient at home given completly normal renal fucntion. he failed voiding trial, will try another today History of BPH previously was on Flomax Elevated troponins: no chest pain. EKG with no acute ischemic change, troponin elevated but flat, hold off echocardiogram and Cardiology consult. DVT prophylaxis: Lovenox Code status: Full code
[2021-03-09 15:58] VITALS: BP 126/91; PULSE 81; RESP 18; TEMP 36.7; O2SAT 95
--- NOTE | 2021-03-09 17:54 | PC.NURSE ---
Addendum entered by Laura Dawson RN 03/10/21 00:20: Order for de souza cath to be placed. Foey in, pt tolerated well. 800ml dark yellow urine drained immediatly. Addendum entered by Laura Dawson RN 03/10/21 00:01: Patient has not voided since de souza was pulled. Bladder scanned for 907mL. Dr Morel notified via [employer]. Original Note: De Souza removed at [address] Pittman for voiding trail. Patient due to void by 1999. Will continue to monitor.
[2021-03-09 18:57] VITALS: BP 100/76; PULSE 93; RESP 18; TEMP 36.4; O2SAT 95
[2021-03-09] MEDS: cefTRIAXone sodium 1 GM in 0.9 % Sodium Chloride 50 ML IV (20:00)
[2021-03-09 23:31] VITALS: BP 127/79; PULSE 108; RESP 18; TEMP 37; O2SAT 98
[2021-03-10 04:00] VITALS: BP 135/78; PULSE 74; RESP 18; TEMP 36.3; O2SAT 95
[2021-03-10] MEDS: Enoxaparin Sodium 40 MG/0.4 ML SYRINGE SUBCUT (06:24)
[2021-03-10 07:27] VITALS: BP 123/90; PULSE 101; RESP 20; TEMP 36.1; O2SAT 94
[2021-03-10] MEDS: Docusate Sodium 100 MG CAPSULE PO (09:04)
[2021-03-10] MEDS: 0.9 % Sodium Chloride Flush 3 ML SYRINGE IVFLUSH ×2 (09:04→15:27)
[2021-03-10 11:03] VITALS: BP 131/87; PULSE 85; RESP 20; TEMP 36.7; O2SAT 95
[2021-03-10] MEDS: Finasteride 5 MG TABLET PO (12:31)
--- NOTE | 2021-03-10 14:18 | MHC.CM.PN ---
Addendum entered by Raquel Diaz 03/10/21 15:29: CM CALLED THE OFFICE OF [facility] ([phone]) TO DETERMINE IF PT HAD A NEW PT APT YET. CM WAS INFORMED THE PT HAS AN APT SCHEDULED FOR MARCH 17, 2021. ONCE PT IS SEEN BY PCP, SHE CAN SEND A REFERRAL TO [facility] FOR ANY NEEDEDSERVICES. Addendum entered by Raquel Diaz 03/10/21 15:20: UNWILLING/UNABLE TO WRITE [facility] ORDERS. ANTHONY CONTACTED PTS , MILI ([phone]) AND EXPLAINED SITUATION. SHE REPORTS SHE FEELS SHE CAN MANAGE THE [facility] UNTIL IT IS REMOVED. SHE WILL COME TO THE UNIT FOR A TEACHING WITH PTS NURSE PRIOR TO PT DISCHARGE. MILI REPORTS SHE HAS THE PTS CLOTHES AND CANE WITH HER. PT WILL DC HOME TODAY WITH PLAN TO FOLLOW UP WITH NEW PCP [facility]. PTS WILL TRANSPORT Original Note: PT WAS PLANNING TO DC HOME WITH [facility] TODAY FOR [facility]EN[facility]ENTI[facility] CARE AND PT HOWEVER PT IS NOT ACTIVE WITH A PCP. PTS REPORTS FEELING COMFORTABLE WITH PT RETURNING HOME HOWEVER SHE MAY REQUIRE TEACHINGS AROUND [facility] MANAGEMENT. CM AWAITING RESPONSE TO IF PTS NEW PCP CAN ASSIST WITH [facility] ORDERS.
[2021-03-10 15:26] VITALS: BP 114/65; PULSE 86; RESP 19; TEMP 37.1; O2SAT 96
--- NOTE | 2021-03-10 16:02 | PM.DS ---
DS: Providers Provider Date of Service: 03/10/21 Date of admission: 03/07/21 02:24 Primary care physician: Unknown Physician Consults: 03/10/21 10:36 Consult to Infectious Diseases Stat Consulting Provider: Eli Baxter Reason for consultation: charly uti Has provider been notified: No 03/10/21 10:49 Consult to Urology Routine Consulting Provider: Josh Cruz Reason for consultation: retention Has provider been notified: No DS: Diagnosis Discharge Diagnosis (1) Elevated troponin: Status: Acute (2) Unsteady gait: Status: Acute (3) History of complete heart block: Status: Acute (4) Pacemaker: Status: Acute DS: Medications Discharge Medications Home Medications: Home Medications Medication Instructions Recorded Confirmed No Known Home Meds 02/05/21 03/07/21 Previous Rx's Medication Instructions Recorded finasteride [Proscar] 5 mg PO DAILY 30 Days #30 tab 03/10/21 tamsulosin 0.4 mg PO BEDTIME #30 cap 03/10/21 DS: Summary Hospital Course Hospital Course: History of presenting illness Chief Complaint: fall 80-year-old male with a past medical history of BPH, history of complete heart block status post pacemaker presented to the hospital today with a chief complaint of fall. Most of the history obtained from the patient's and ER staff. Reportedly patient called in and when found him he was on the side of the bed sitting; patient's was unsure if he hit his head. Mentioned that patient had a chronic cough. Denies any chest pain palpitations. Denies any lightheadedness dizziness. Denies any numbness tingling. Per patient's patient is confused today. Review of all other systems is negative except mentioned above ER course: Per ER team exam was essentially benign, urinalysis abnormal consistent with UTI-given ceftriaxone. Cultures were sent. EKG was nonischemic. Troponin slightly high. CT head showed no acute findings. Hospital course 80-year-old male with a past medical history of BPH, history of complete heart block status post pacemaker, presented to the hospital with a chief complaint of fall. Patient noted to be febrile in the ER; urinalysis abnormal consistent with UTI. Unsteady gait, likely had mechanical fall since was not using cane, patient seen by Physical therapy and they recommended short-term rehab however patient declined, spoke with patient's she is agreeing to take him home, cannot arrange for visiting nurses and physical therapy since patient does not have a primary care physician. Question UTI, patient urinalysis was significantly positive however urine culture showed no bacterial growth but showed Charly less than 50,000, therefore will discontinue antibiotics Patient is asymptomatic with no fevers, no leukocytosis and is not immunocompromised. Dementia patient has baseline dementia, initially was confusedand felt to have toxic metabolic encephalopathy now back to baseline and lucid. Urinary retention with history of BPH, patient previously was on Flomax and Proscar but stopped using it, De Souza catheter placed in the ER patient was given voiding trial but continued to have urinary retention therefore De Souza catheter has been placed, case discussed with Dr. Cruz patient is being discharged home with indwelling De Souza catheter he has been restarted on Flomax and Proscar and will have 1 week follow-up with Urology , patient received teachings for De Souza care at bedside. Elevated troponins: no chest pain. EKG with no acute ischemic change, troponin elevated but flat, no further workup was obtained.. Time Spent with Patient Time attestation: Total time spent providing and/or coordinating discharge services: Discharge coordination time: Greater than 30 minutes Quality: Stroke Does the patient have a stroke diagnosis?: No Physical Exam Vital Signs: Vital Signs: Last Vital Signs Temp 98.7 F 03/10/21 15:26 Pulse 86 03/10/21 15:26 Resp 19 03/10/21 15:26 BP 114/65 03/10/21 15:26 Pulse Ox 96 03/10/21 15:26 Body Mass Index 20.1 General no acute distress. Neck no JVD. CVS regular rate rhythm, Respiratory lungs clear to auscultation, no respiratory distress, no wheeze, no rhonchi. Gastrointestinal abdomen soft, nontender, bowel sounds audible, no guarding , no rigidity. Extremities no edema. Neuro nonfocal , speech clear. Skin no rash De Souza catheter in place with clear urine. DS: Data Data Completed and Pending Completed studies during hospitalization [Text1]: Procedures Insertion of Endotracheal Airway into Trachea, Via Natural or Artificial Opening (08/27/20) Insertion of Pacemaker Lead into Right Atrium, Percutaneous Approach (08/27/20) Insertion of Pacemaker Lead into Right Ventricle, Percutaneous Approach (11/03/20) Insertion of Pacemaker, Dual Chamber into Chest Subcutaneous Tissue and Fascia, Open Approach (08/27/20) Labs on day of discharge: Preliminary micro results at discharge 03/06/21 23:56 Blood Culture - Preliminary Blood - Venous No growth after 48 hours. 03/06/21 23:56 Blood Culture - Preliminary Blood - Venous No growth after 48 hours. Discharge Plan Discharge Patient Disposition: Home, Self-Care Discharge Diagnosis: Toxic metabolic encephalopathy Urinary retention Unsteady gait Referrals: Physician,Unknown [Primary Care Provider] - 1 Week Discharge Medications: New tamsulosin 0.4 mg Capsule 0.4 mg PO BEDTIME Qty: 30 RF: 0 finasteride [Proscar] 5 mg Tablet 5 mg PO DAILY 30 Days Qty: 30 RF: 0 No Action No Known Home Meds RF: 0 Discharge Orders: Discharge Order (Routine); Ordered 03/10/21 Ordered By: Kayla Reynoso Diet: advance to usual diet Activity on Discharge: Use cane or walker Stand Alone Forms: Patient Portal Discharge page Care Plan Goals: Unsteady gait, you were recommended rehab however you declined rehab therefore being discharged home, continue maxwell for ambulation. You do not have urinary tract infection. Health Concerns: Urinary retention/unsteady gait, you have de souza catheter ,continue it till seen by Dr Cruz, high fall risk please use maxwell and arrange for primary care physcician so that you can qulaify for home services. Plan of Treatment: Take medication as prescribed and follow up with Urology Dr Cruz in 1 week Assessment: asper discharge summary Discharge Date/Time: 03/10/21 16:21
--- NOTE | 2021-03-10 16:06 | PC.NURSE ---
Gave and patient instructions on how to manage and empty de souza cath. demonstrated well. Instructed to keep catheter secure on at all times, bag below bladder and off floor. Given clear urinal to facilitate emptying.
== END 2021-03-10 16:21 | disposition home or self-care (01) | DRG 689 ==
LOC: HO.ED 03-07 02:45 → HO.EDOVER 03-07 04:22 → HO.IMC 03-07 13:20
PROVIDERS: Admitting Provider Hospitalist; Emergency Provider Emergency Medicine Emergency Medical Services; Visit Provider Hospitalist
DX: N39.0 Urinary tract infection, site not specified (principal); G92 Toxic encephalopathy; N40.1 Benign prostatic hyperplasia with lower urinary tract symptoms; R26.81 Unsteadiness on feet; R33.8 Other retention of urine; R79.89 Other specified abnormal findings of blood chemistry; F03.90 Unspecified dementia, unspecified severity, without behavioral disturbance, psychotic disturbance, mood disturbance, and anxiety; Z95.0 Presence of cardiac pacemaker; Z20.822 Contact with and (suspected) exposure to COVID-19; Z87.891 Personal history of nicotine dependence; Z88.0 Allergy status to penicillin; Z79.899 Other long term (current) drug therapy
CPT/HCPCS: 0241U; 36415; 70450; 71045; 80048; 80053; 80320; 81001; 81003; 83605; 83690; 84484; 85025; 87040; 87086; 87088; 93005; 93306; 96365; 97162; 99285; C1758; J0696; J1650

== ENCOUNTER 2021-03-17 14:28 | Outpatient (REF) | payer MEDICARE, OTHER, SELFPAY ==
[2021-03-17 16:42] LABS: Basophils Absolute Auto 0.1 X10*3/uL (0.0-0.2); Basophils Percent Auto 0.6 % (0-2); Eosinophils Absolute Auto 0.2 X10*3/uL (0.0-0.4); Eosinophils Percent Auto 1.5 % (0-4); Hematocrit 37.7 % (42-52); Hemoglobin 11.6 g/dl (14.0-18.0); Imm Gran Abs Auto 0.04 X10*3/uL (0.00-0.03); Imm Gran Pct Auto 0.4 % (0.0-0.4); MANUAL DIFF FLAG SCAN; Mean Corpuscular HGB Conc 30.8 g/dl (31.0-36.0); Mean Corpuscular Hemoglobin 28.5 pg (27.0-33.0); Mean Corpuscular Volume 92.6 fL (80-98); Monocytes Absolute Auto 0.7 X10*3/uL (0.1-1.2); Monocytes Percent Auto 6.8 % (2-11); Neutrophils Absolute Auto 7.9 X10*3/uL (2.0-8.3); Neutrophils Percent Auto 80.7 % (45-73); PLT CLUMP 1; Red Blood Count 4.07 X10*6/uL (4.60-5.80); Red Cell Distribution Width 15.4 % (11.0-16.0); SCAN SMEAR FLAG 1
[2021-03-17 17:06] LABS: Platelet Count 176 X10*3/uL (160-400); White Blood Count 9.8 X10*3/uL (4.8-10.8)
[2021-03-17 17:07] LABS: SLIDE REVIEW VERIFIED
[2021-03-17 17:12] LABS: Alanine Aminotransferase 10 U/L (0-40); Albumin Level 3.9 g/dL (3.5-5.0); Alkaline Phosphatase 81 U/L (39-117); Anion Gap 19 (12-20); Aspartate Amino Transferase 12 U/L (5-37); Bilirubin Total 0.7 mg/dL (0.0-1.0); Blood Urea Nitrogen 13 mg/dL (9-16); Calcium 9.3 mg/dL (8.4-10.2); Carbon Dioxide 22 mmol/L (22-29); Chloride 105 mmol/L (96-108); Estimated Glomerular Filt Rate > 60; Glucose Fasting 96 mg/dL (60-99); Iron 38 mcg/dL (45-160); Percent Iron Saturation 17 % (15-50); Potassium 4.2 mmol/L (3.3-5.1); Sodium 142 mmol/L (135-145); Total Iron Binding Capacity 219 mcg/dL (228-428); Total Protein 6.8 g/dL (6.5-8.0); Unsaturated Iron Binding 181 ug/dL
[2021-03-17 17:38] LABS: Folate 3.6 ng/mL (> or = 4.0); Vitamin B12 172 pg/mL (200-900)
[2021-03-17 17:40] LABS: Ferritin 755 ng/mL (20-250); TSH reflex Free T4 1.22 uIU/mL (0.32-4.0); Vitamin D 25-OH Total 8.6 ng/mL (>30)
[2021-03-17 18:04] LABS: PSA,Total (Free>4and<10) 2.35 ng/mL (0.00-4.00)
== END 2021-03-17 14:29 | disposition home or self-care (01) ==
LOC: HO.HMGCLDS 14:28
PROVIDERS: PCP Internal Medicine; Visit Provider Internal Medicine
DX: D50.9 Iron deficiency anemia, unspecified (principal); E83.51 Hypocalcemia; R33.9 Retention of urine, unspecified; R58 Hemorrhage, not elsewhere classified; R63.4 Abnormal weight loss; Z86.79 Personal history of other diseases of the circulatory system
CPT/HCPCS: 36415; 80053; 82306; 82607; 82728; 82746; 83540; 84153; 84443; 85025

== ENCOUNTER → 2021-03-20 12:51 | Outpatient (BNVA) | payer MEDICARE, OTHER, SELFPAY | PROVIDERS: PCP Internal Medicine; Visit Provider Urology | DX: N40.1 Benign prostatic hyperplasia with lower urinary tract symptoms (principal); R33.9 Retention of urine, unspecified | CPT/HCPCS: 51700; 51701; 51705; 99212 ==

== ENCOUNTER → 2021-04-11 11:24 | Outpatient (BNVA) | payer MEDICARE, OTHER, SELFPAY | PROVIDERS: PCP Internal Medicine; Visit Provider Internal Medicine Cardiovascular Disease | DX: I47.1 Supraventricular tachycardia (principal); I49.9 Cardiac arrhythmia, unspecified; Z86.79 Personal history of other diseases of the circulatory system; Z95.0 Presence of cardiac pacemaker | CPT/HCPCS: 99212 ==

== ENCOUNTER 2021-04-23 17:51 | Inpatient (IN) | payer MEDICARE, OTHER, SELFPAY ==
[2021-04-23] VITALS (16 sets, daily range): BP systolic 71–96; BP diastolic 39–70; PULSE 93–131; RESP 18–36; TEMP 36.4–39.3; O2SAT 92–98; BMI 17.8
--- NOTE | ~2021-04-23 | CT_ITS ---
EXAMINATION: CT CHEST, ABDOMEN AND PELVIS WITHOUT CONTRAST. CLINICAL INFORMATION: malignancy mets? . COMPARISON: 09/26/2020. TECHNIQUE: Multidetector volumetric imaging was performed from the thoracic inlet through the pubic symphysis without intravenous contrast. Sagittal and coronal reformatted images were obtained on the technologist workstation. This CT examination was performed using dose optimization techniques as appropriate, variously including the following: *Automated exposure control *Adjustment of mA and/or kV according to patient size (this includes techniques or standardized protocols for targeted exams where dose is matched to indication/reason for exam; i.e. extremities or head) *Use of iterative reconstruction technique DLP: 744 mGy-cm FINDINGS: CHEST: Patient was unable to hold his breath for the study resulting in respiratory motion artifact. Lungs: Extensive emphysematous changes are seen bilaterally with bullous changes more prominent in the bilateral upper lobes. There is a solid-appearing 3.5 cm mass lesion in the posterior lateral right lower lobe. This is partially seen on the 09/26/2020 study but appeared to measure approximately 2.4 cm at that time. Fine detail is obscured by motion artifact but this does appear to have increased in size since that prior study. There is a 1.3 cm subpleural nodule in the posterior lateral aspect of the contralateral left lower lobe which is slightly increased from the 0.9 cm on the 08/27/2020 CT scan the chest. Ill-defined nodular opacity in the anterior aspect of the left lung apex is approximately 2.5 cm which is similar to the 08/27/2020 study. Fine detail of the lung parenchyma unfortunately is obscured due to significant respiratory motion artifact and smaller pulmonary nodules would be difficult to exclude. No dense consolidation. Central airways demonstrate probable mucous in the right mainstem bronchus. Mediastinum: Vascular calcification within the aorta iliac system. I do not appreciate any bulky adenopathy on this noncontrast motion degraded study. Left-sided pacemaker noted with lead tips in the region of the right atrium and right ventricle Pericardium/Pleura: No significant effusion. No pleural mass or thickening. Chest Wall/Axilla: Patient is markedly cachectic. ABDOMEN/PELVIS: Peritoneal Space:No significant free air or free fluid identified.. Nodules seen in the right midabdomen and right lower quadrant concerning for carcinomatosis, new from the prior study Liver, Gallbladder, Biliary Tree: The non contrast liver is normal in size, shape, and attenuation. No focal hepatic lesion or biliary ductal dilatation is present. Gallbladder is contracted and not well defined. Pancreas: Unremarkable. Spleen: Unremarkable. Adrenal Glands: Unremarkable. Kidneys and Ureters: Mild fullness to both collecting systems and ureters. Subtle cystic changes in the renal cortex of the difficult to exclude with this degree of motion. Ureters are dilated throughout their course up to the bladder Bladder: Bladder has small amount of nondependent air likely related to the Pham catheter which is positioned in the prostatic urethra rather than the bladder lumen. Gastrointestinal Tract: There is scattered colonic diverticulosis unfortunately fine detail of the bowel is limited. There is a mass lesion likely present within the cecum with resulting wall thickening. This has progressed from the prior 09/26/2020 study. There is also fluid distention of the appendix suggesting a mucocele likely secondary to mass lesion obstructing the appendiceal orifice in this setting. Abdominal Wall: Diffuse cachexia Lymphovascular Structures: Vascular calcification within the aorta iliac system. I do not appreciate bulky adenopathy. Pelvic Viscera: Enlarged prostate. Unfortunately the balloon of the Pham catheter is inflated within the prostatic urethra and could be repositioned to better drain the bladder Osseus Structures: Multilevel degenerative changes in the spine without acute fracture or spondylolisthesis. I do not appreciate any obvious acute bony destructive lesions. Degenerative changes in the hips. CT/CT abdomen pelvis wo con IMPRESSION: Despite the significant limitations from the respiratory motion artifact on the study, there are several abnormalities of note. Pulmonary nodules are noted as well as a 3.5 cm mass lesion in the posterior aspect of the right lower lobe. These appear more prominent than on the prior studies were there is seen. Extensive emphysematous changes. Complex mass lesion in the cecum. The progressed from the 2019 study. There is also marked dilatation of the fluid-filled appendix suggesting an appendiceal mucocele likely secondary to obstruction in the region of the appendiceal orifice. There is peritoneal nodularity seen more so in the right mid to lower quadrant concerning for carcinomatosis in this setting. These peritoneal nodules were not seen on the 09/26/2020 CT scan. The Pham catheter balloon is is inflated within the prostatic urethra rather than within the bladder lumen and repositioning will likely help with better bladder drainage. This critical result was discussed with Dr Davey at 04/23/2021 8:42 PM and it was ascertained that the content and urgency of the report was understood at the time of direct communication.
--- NOTE | ~2021-04-23 | XR_ITS ---
EXAMINATION: XR CHEST CLINICAL INFORMATION: Fever COMPARISON: Chest x-ray March 07, [address] chest August 27, 2020 TECHNIQUE: Frontal view of the chest was obtained. FINDINGS: Cardiac silhouette is normal in size. Hyperinflated lungs. Bilateral pulmonary nodules are again identified which appear increased in size from February. The largest pulmonary nodule is located within the right lower lobe and measures approximately 3.6 cm. No gross lobar consolidation is present. No pleural effusion or pneumothorax. XR/XR chest 1V IMPRESSION: 1. No gross lobar consolidation. 2. Interval increase in size of known lung lesions.
--- NOTE | ~2021-04-23 | XR_ITS ---
EXAMINATION: XR CHEST CLINICAL INFORMATION: Central line placement. COMPARISON: Chest x-ray April 23, 2021. CT of chest April 23, 2021 TECHNIQUE: Frontal portable view of the chest was obtained. 9:50 PM FINDINGS: Tubes and lines: 1. Right IJ catheter catheter is in the superior vena cava. The catheter tip is approximately 8 cm proximal to the caval atrial junction. 2. There is a dual-lead pacemaker in the heart and lead in right atrium and right ventricle unchanged position since prior study. No pneumothorax. Right chest mass again noted. Emphysematous hyperlucency of lungs. No acute airspace disease. No pleural effusion. XR/XR chest 1V IMPRESSION: Right IJ catheter tip in superior vena cava. There is no pneumothorax.
--- NOTE | 2021-04-23 18:20 | ECG_ITS ---
Test Reason : DIFFICULTY BREATHING Blood Pressure : / mmHG Vent. Rate : 110 BPM Atrial Rate : 150 BPM P-R Int : 000 ms QRS Dur : 166 ms QT Int : 398 ms P-R-T Axes : 000 -61 102 degrees QTc Int : 538 ms Intermiitent atrial paced complexes followed by V-paced rhyth, possible PMT Abnormal ECG When compared with ECG of 06-MAR-2021 23:31, Possible PMT is present Referred By: Etelvina Davey Electronically Signed By:MANISH SOTO MD
--- NOTE | 2021-04-23 18:28 | ED_ITS ---
HPI - General Adult General Chief complaint: Failure to Thrive Stated complaint: FAILURE TO THRIVE FOR 2MNTHS COMING FROM HOME Time Seen by Provider: 04/23/21 18:18 Source: EMS Mode of arrival: EMS Limitations: altered mental status History of Present Illness HPI narrative: patient is brought to the emergency room by EMS, patient is coming from home. According to the EMS staff, the called EMS because the patient has had failure to 5 for 3 days. 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 Per EMS, the reported that the patient has history of colon cancer. however, he moaned CT scan on 09/26/2020, a CT scan showed wall thickening of the cecum, raising suspicious for an underlying mass. I spoke with the patient's , she states that she is aware of this findings, however he never had a follow-up colonoscopy. From previous notes, patient was discharged on March 10, he was discharged from this hospital, per notes he was lucid. Related Data Previous Rx's Medication Instructions Recorded cholecalciferol (vitamin D3) 1,250 1,250 mcg PO QWEEK 90 Days #13 cap 03/18/21 mcg (50,000 unit) capsule cyanocobalamin (vitamin B-12) 1,000 mcg SUBCUT Q4W 90 Days #4 ml 03/18/21 1,000 mcg/mL injection solution ferrous fumarate 325 mg (106 mg 325 mg PO DAILY #90 tab 03/18/21 iron) tablet folic acid 800 mcg tablet 0.8 mg PO DAILY #30 tab 03/18/21 finasteride 5 mg tablet 5 mg PO DAILY 90 Days #90 tab 03/20/21 tamsulosin 0.4 mg capsule 0.4 mg PO BEDTIME 90 Days #90 cap 03/20/21 amiodarone 200 mg tablet 200 mg PO DAILY #60 tab 04/12/21 Allergies Allergy/AdvReac Type Severity Reaction Status Date / Time Penicillins Allergy Anaphylaxis Verified 03/24/21 14:58 Review of Systems Review of Systems: Yes Unobtainable due to mental condition PMFSH Past Medical History Medical History Abnormal weight loss Folate deficiency History of complete heart block Microcytic hypochromic anemia Vitamin B12 deficiency anemia Vitamin D deficiency Surgical History History of permanent cardiac pacemaker placement Family History Family History Other No significant family history Social History Social History Household Members: Spouse Housing: House Do you presently have visiting nurse or other home services: No Alcohol intake: unknown Patient Tobacco Use Status: Tobacco use Unknown Second Hand Smoke Exposure: No Use of substances other than those prescribed or required for medical reasons: Unknown Advance Directives: No Advance Directives Information Provided: Yes service: Yes Current occupational status: retired Physical Exam Vital Signs: Vital Signs: Last Vital Signs Temp 97.9 F 04/23/21 22:25 Pulse 130 H 04/23/21 22:25 Resp 20 04/23/21 22:25 BP 83/57 L 04/23/21 22:25 Pulse Ox 95 04/23/21 22:25 Body Mass Index 17.8 Appearance: Alert, altered, unable to answer any questions, and a bur to speak, unable to follow any commands. Disheveled, dirty closed stain in urine and feces, his diaper is full of urine and black diarrhea, has a Pham in place with a wooden stick insert into the Pham to prevent urine leakage, emaciated/ very cachectic Eyes: Pupils equal, round and reactive to light. ENT: dry mucous membranes Neck: Normal inspection. Neck supple. No lymph nodes noted. No crepitus CVS: tachycardic, Pulses normal. Normal S1 and S2 Respiratory: oxygen saturation 97% on room air, respiratory rate 36, rapid shallow breaths Abdomen: Soft and nontender. No rigidity. No distention. good BS x4 Skin: Skin warm and dry. Normal skin color. Normal skin turgor. Extremities: No lower extremity edema. No lower extremity edema. No Laceratio ns. No Rash Neuro: Oriented X 3. No motor deficit. No sensory deficit. Moving all extermities. No slurred speech. Course Course Course Narrative: I spoke with the patient's and the severity of his current condition. I discussed code status with the patient's , the wishes for him to be full code. Patient's is an elderly lady, states that she cannot take care of her , they have a nephew who has been trying to help at home. However, do not have any services. The reports that the patient has been bed ridden for almost 3 days, they have been unable to change his diaper. 20:15, patient's is at bedside, who states that she will like to make her patient DNR DNI, she consents to IV hydration, CPAP use if needed, and central line which he will likely need today patient has been placed in soft restraints, patient is very confused, keeps pulling his lines out, patient is not violent. I discussed the CT scan with the patient's . Unfortunately, he has significantly advanced metastatic cancer. At this time, patient's would like to keep the patient as DNR DNI, treat the infection, but does not want any aggressive treatment for the cancer. CT scan shows that the Pham catheter is in the prostatic urethra, the Pham catheter was advanced, now draining urine much better. I discussed the above-mentioned with Dr. Nails, patient will be admitted to the ICU, likely tomorrow case Management will be involved, also the goals of care will be re-evaluated with the patient's . at this time, she is not ready to make the patient TEACHER'S ASSISTANT Procedures Central Line Placement Right IJ: Time Out Performed: Yes Patient Placed on Monitor/Pulse Ox: Yes MD Prep: mask, gown and gloves Central Line Prep: Chlorhexidine scrub Local Anesthetic: lidocaine 1% Amount of anesthesia used (mL): 5 Ultrasound Used for Placement: Yes Central Line Lumen Inserted: triple Post Procedure: sutured in place, good blood return, all ports aspirated, flushed, capped and sterile dressing applied Post Procedure X-Ray: tip of catheter in good position and no pneumothorax seen Patient Tolerated Procedure: well Complications: none Medical Decision Making Lab Data Result diagrams: 04/23/21 18:31 04/23/21 19:20 Labs: Lab Results 04/23/21 04/23/21 04/23/21 Range/Units 18:30 18:30 18:30 WBC (4.8-10.8) X10*3/uL RBC (4.60-5.80) X10*6/uL Hgb (14.0-18.0) g/dl Hct (42-52) % MCV (80-98) fL MCH (27.0-33.0) pg MCHC (31.0-36.0) g/dl RDW (11.0-16.0) % Plt Count (160-400) X10*3/uL MPV (9.4-12.4) fL Immature Gran % (Auto) (0.0-0.4) % Neut % (Auto) (45-73) % Lymph % (Auto) (20-40) % [place] % (Auto) (2-11) % Eos % (Auto) (0-4) % Baso % (Auto) (0-2) % Lymph # (Auto) (1.2-4.9) X10*3/uL [place] # (Auto) (0.1-1.2) X10*3/uL Eos # (Auto) (0.0-0.4) X10*3/uL Baso # (Auto) (0.0-0.2) X10*3/uL Abs Immat Gran (auto) (0.00-0.03) X10*3/uL Absolute Neuts (auto) (2.0-8.3) X10*3/uL Absolute Nucleated RBC (0.0-0.012) X10*3/uL Nucleated RBC % (auto) (0.0-0.2) /100WBC Smear Tech's Comments PT 14.0 H (10.8-13.0) SEC INR 1.2 H (0.9-1.1) Sodium (135-145) mmol/L Potassium (3.3-5.1) mmol/L Chloride (96-108) mmol/L Carbon Dioxide (22-29) mmol/L Anion Gap (12-20) BUN (9-16) mg/dL Creatinine (0.5-1.4) mg/dL Estim Creat Clear Calc Estimated GFR Random Glucose (60-115) mg/dL Lactic Acid 3.6 H* (0.5-2.0) mmol/L Lactic Acid Fup @ 2Hr (0.5-2.0) mmol/L Calcium (8.4-10.2) mg/dL Magnesium 2.2 (1.6-2.6) mg/dL Total Bilirubin (0.0-1.0) mg/dL Direct Bilirubin (0.0-0.5) mg/dL AST (5-37) U/L ALT (0-40) U/L Alkaline Phosphatase (39-117) U/L Ammonia (13-55) umol/L Troponin I High Sens (<3.5-35.0) ng/L Total Protein (6.5-8.0) g/dL Albumin (3.5-5.0) g/dL Lipase 13 (8-78) U/L TSH 1.31 (0.32-4.0) uIU/mL Urine Color Urine Appearance Urine pH (5.0-8.0) Ur Specific [place] (1.005-1.025) Urine Protein (NEG-TRACE) MG/DL Urine Glucose (UA) (NEG) MG/DL Urine Ketones (NEG) MG/DL Urine Blood (NEG) Urine Nitrite (NEG) Ur Leukocyte Esterase (NEG) Urine RBC (0) /HPF Urine WBC (0-4) /HPF Ur Squamous Epith Cells /LPF Urine Bacteria /LPF Urine Mucus /LPF Stool Occult Blood (NEGATIVE) COVID-19 ([facility]) (Negative) COVID-19 Clin Com Blood Type Antibody Screen 04/23/21 04/23/21 04/23/21 Range/Units 18:30 18:30 18:31 WBC 34.8 H* (4.8-10.8) X10*3/uL RBC 4.67 (4.60-5.80) X10*6/uL Hgb 13.5 L (14.0-18.0) g/dl Hct 41.4 L (42-52) % MCV 88.7 (80-98) fL MCH 28.9 (27.0-33.0) pg MCHC 32.6 (31.0-36.0) g/dl RDW 15.2 (11.0-16.0) % Plt Count 262 D (160-400) X10*3/uL MPV 14.1 H (9.4-12.4) fL Immature Gran % (Auto) 3.1 H (0.0-0.4) % Neut % (Auto) 90.7 H (45-73) % Lymph % (Auto) 1.4 L (20-40) % [place] % (Auto) 4.6 (2-11) % Eos % (Auto) 0.1 (0-4) % Baso % (Auto) 0.1 (0-2) % Lymph # (Auto) 0.5 L (1.2-4.9) X10*3/uL [place] # (Auto) 1.6 H (0.1-1.2) X10*3/uL Eos # (Auto) 0.1 (0.0-0.4) X10*3/uL Baso # (Auto) 0.1 (0.0-0.2) X10*3/uL Abs Immat Gran (auto) 1.08 H (0.00-0.03) X10*3/uL Absolute Neuts (auto) 31.5 H (2.0-8.3) X10*3/uL Absolute Nucleated RBC 0.000 (0.0-0.012) X10*3/uL Nucleated RBC % (auto) 0.0 (0.0-0.2) /100WBC Smear Tech's Comments VERIFIED PT (10.8-13.0) SEC INR (0.9-1.1) Sodium (135-145) mmol/L Potassium (3.3-5.1) mmol/L Chloride (96-108) mmol/L Carbon Dioxide (22-29) mmol/L Anion Gap (12-20) BUN (9-16) mg/dL Creatinine (0.5-1.4) mg/dL Estim Creat Clear Calc Estimated GFR Random Glucose (60-115) mg/dL Lactic Acid (0.5-2.0) mmol/L Lactic Acid Fup @ 2Hr (0.5-2.0) mmol/L Calcium (8.4-10.2) mg/dL Magnesium (1.6-2.6) mg/dL Total Bilirubin (0.0-1.0) mg/dL Direct Bilirubin (0.0-0.5) mg/dL AST (5-37) U/L ALT (0-40) U/L Alkaline Phosphatase (39-117) U/L Ammonia 28 (13-55) umol/L Troponin I High Sens 27.2 (<3.5-35.0) ng/L Total Protein (6.5-8.0) g/dL Albumin (3.5-5.0) g/dL Lipase (8-78) U/L TSH (0.32-4.0) uIU/mL Urine Color Urine Appearance Urine pH (5.0-8.0) Ur Specific [place] (1.005-1.025) Urine Protein (NEG-TRACE) MG/DL Urine Glucose (UA) (NEG) MG/DL Urine Ketones (NEG) MG/DL Urine Blood (NEG) Urine Nitrite (NEG) Ur Leukocyte Esterase (NEG) Urine RBC (0) /HPF Urine WBC (0-4) /HPF Ur Squamous Epith Cells /LPF Urine Bacteria /LPF Urine Mucus /LPF Stool Occult Blood (NEGATIVE) COVID-19 ([facility]) (Negative) COVID-19 Clin Com Blood Type Antibody Screen 04/23/21 04/23/21 04/23/21 Range/Units 18:31 18:48 18:52 WBC (4.8-10.8) X10*3/uL RBC (4.60-5.80) X10*6/uL Hgb (14.0-18.0) g/dl Hct (42-52) % MCV (80-98) fL MCH (27.0-33.0) pg MCHC (31.0-36.0) g/dl RDW (11.0-16.0) % Plt Count (160-400) X10*3/uL MPV (9.4-12.4) fL Immature Gran % (Auto) (0.0-0.4) % Neut % (Auto) (45-73) % Lymph % (Auto) (20-40) % [place] % (Auto) (2-11) % Eos % (Auto) (0-4) % Baso % (Auto) (0-2) % Lymph # (Auto) (1.2-4.9) X10*3/uL [place] # (Auto) (0.1-1.2) X10*3/uL Eos # (Auto) (0.0-0.4) X10*3/uL Baso # (Auto) (0.0-0.2) X10*3/uL Abs Immat Gran (auto) (0.00-0.03) X10*3/uL Absolute Neuts (auto) (2.0-8.3) X10*3/uL Absolute Nucleated RBC (0.0-0.012) X10*3/uL Nucleated RBC % (auto) (0.0-0.2) /100WBC Smear Tech's Comments PT (10.8-13.0) SEC INR (0.9-1.1) Sodium (135-145) mmol/L Potassium (3.3-5.1) mmol/L Chloride (96-108) mmol/L Carbon Dioxide (22-29) mmol/L Anion Gap (12-20) BUN (9-16) mg/dL Creatinine (0.5-1.4) mg/dL Estim Creat Clear Calc Estimated GFR Random Glucose (60-115) mg/dL Lactic Acid (0.5-2.0) mmol/L Lactic Acid Fup @ 2Hr (0.5-2.0) mmol/L Calcium (8.4-10.2) mg/dL Magnesium (1.6-2.6) mg/dL Total Bilirubin (0.0-1.0) mg/dL Direct Bilirubin (0.0-0.5) mg/dL AST (5-37) U/L ALT (0-40) U/L Alkaline Phosphatase (39-117) U/L Ammonia (13-55) umol/L Troponin I High Sens (<3.5-35.0) ng/L Total Protein (6.5-8.0) g/dL Albumin (3.5-5.0) g/dL Lipase (8-78) U/L TSH (0.32-4.0) uIU/mL Urine Color YELLOW Urine Appearance TURBID Urine pH 6.0 (5.0-8.0) Ur Specific [place] 1.015 (1.005-1.025) Urine Protein 1+ H (NEG-TRACE) MG/DL Urine Glucose (UA) NEG (NEG) MG/DL Urine Ketones NEG (NEG) MG/DL Urine Blood 1+ H (NEG) Urine Nitrite NEG (NEG) Ur Leukocyte Esterase 3+ H (NEG) Urine RBC 1-4 (0) /HPF Urine WBC TNTC H (0-4) /HPF Ur Squamous Epith Cells TRACE /LPF Urine Bacteria TRACE /LPF Urine Mucus TRACE /LPF Stool Occult Blood (NEGATIVE) COVID-19 ([facility]) Negative (Negative) COVID-19 Clin Com See Note Blood Type O Positive Antibody Screen NEGATIVE 04/23/21 04/23/21 04/23/21 Range/Units 18:52 19:20 21:16 WBC (4.8-10.8) X10*3/uL RBC (4.60-5.80) X10*6/uL Hgb (14.0-18.0) g/dl Hct (42-52) % MCV (80-98) fL MCH (27.0-33.0) pg MCHC (31.0-36.0) g/dl RDW (11.0-16.0) % Plt Count (160-400) X10*3/uL MPV (9.4-12.4) fL Immature Gran % (Auto) (0.0-0.4) % Neut % (Auto) (45-73) % Lymph % (Auto) (20-40) % [place] % (Auto) (2-11) % Eos % (Auto) (0-4) % Baso % (Auto) (0-2) % Lymph # (Auto) (1.2-4.9) X10*3/uL [place] # (Auto) (0.1-1.2) X10*3/uL Eos # (Auto) (0.0-0.4) X10*3/uL Baso # (Auto) (0.0-0.2) X10*3/uL Abs Immat Gran (auto) (0.00-0.03) X10*3/uL Absolute Neuts (auto) (2.0-8.3) X10*3/uL Absolute Nucleated RBC (0.0-0.012) X10*3/uL Nucleated RBC % (auto) (0.0-0.2) /100WBC Smear Tech's Comments PT (10.8-13.0) SEC INR (0.9-1.1) Sodium 134 L (135-145) mmol/L Potassium 5.4 H D (3.3-5.1) mmol/L Chloride 98 (96-108) mmol/L Carbon Dioxide 14 L (22-29) mmol/L Anion Gap 27 H (12-20) BUN 92 H* D (9-16) mg/dL Creatinine 3.51 H (0.5-1.4) mg/dL Estim Creat Clear Calc 14.3 Estimated GFR 17 Random Glucose 142 H D (60-115) mg/dL Lactic Acid (0.5-2.0) mmol/L Lactic Acid Fup @ 2Hr 2.6 H* (0.5-2.0) mmol/L Calcium 9.2 (8.4-10.2) mg/dL Magnesium (1.6-2.6) mg/dL Total Bilirubin 0.7 (0.0-1.0) mg/dL Direct Bilirubin 0.3 (0.0-0.5) mg/dL AST 17 D (5-37) U/L ALT 13 (0-40) U/L Alkaline Phosphatase 110 D (39-117) U/L Ammonia (13-55) umol/L Troponin I High Sens (<3.5-35.0) ng/L Total Protein 7.0 (6.5-8.0) g/dL Albumin 3.4 L (3.5-5.0) g/dL Lipase (8-78) U/L TSH (0.32-4.0) uIU/mL Urine Color Urine Appearance Urine pH (5.0-8.0) Ur Specific [place] (1.005-1.025) Urine Protein (NEG-TRACE) MG/DL Urine Glucose (UA) (NEG) MG/DL Urine Ketones (NEG) MG/DL Urine Blood (NEG) Urine Nitrite (NEG) Ur Leukocyte Esterase (NEG) Urine RBC (0) /HPF Urine WBC (0-4) /HPF Ur Squamous Epith Cells /LPF Urine Bacteria /LPF Urine Mucus /LPF Stool Occult Blood NEGATIVE (NEGATIVE) COVID-19 ([facility]) (Negative) COVID-19 Clin Com Blood Type Antibody Screen Imaging Data chest abdomen pelvis CT scan: Radiologist's impression: CHEST: Patient was unable to hold his breath for the study resulting in respiratory motion artifact. Lungs: Extensive emphysematous changes are seen bilaterally with bullous changes more prominent in the bilateral upper lobes. There is a solid-appearing 3.5 cm mass lesion in the posterior lateral right lower lobe. This is partially seen on the 09/26/2020 study but appeared to measure approximately 2.4 cm at that time. Fine detail is obscured by motion artifact but this does appear to have increased in size since that prior study. There is a 1.3 cm subpleural nodule in the posterior lateral aspect of the contralateral left lower lobe which is slightly increased from the 0.9 cm on the 08/27/2020 CT scan the chest. Ill-defined nodular opacity in the anterior aspect of the left lung apex is approximately 2.5 cm which is similar to the 08/27/2020 study. Fine detail of the lung parenchyma unfortunately is obscured due to significant respiratory motion artifact and smaller pulmonary nodules would be difficult to exclude. No dense consolidation. Central airways demonstrate probable mucous in the right mainstem bronchus. Mediastinum: Vascular calcification within the aorta iliac system. I do not appreciate any bulky adenopathy on this noncontrast motion degraded study. Left-sided pacemaker noted with lead tips in the region of the right atrium and right ventricle Pericardium/Pleura: No significant effusion. No pleural mass or thickening. Chest Wall/Axilla: Patient is markedly cachectic. ABDOMEN/PELVIS: Peritoneal Space:No significant free air or free fluid identified.. Nodules seen in the right midabdomen and right lower quadrant concerning for carcinomatosis, new from the prior study Liver, Gallbladder, Biliary Tree: The non contrast liver is normal in size, shape, and attenuation. No focal hepatic lesion or biliary ductal dilatation is present. Gallbladder is contracted and not well defined. Pancreas: Unremarkable. Spleen: Unremarkable. Adrenal Glands: Unremarkable. Kidneys and Ureters: Mild fullness to both collecting systems and ureters. Subtle cystic changes in the renal cortex of the difficult to exclude with this degree of motion. Ureters are dilated throughout their course up to the bladder Bladder: Bladder has small amount of nondependent air likely related to the Pham catheter which is positioned in the prostatic urethra rather than the bladder lumen. Gastrointestinal Tract: There is scattered colonic diverticulosis unfortunately fine detail of the bowel is limited. There is a mass lesion likely present within the cecum with resulting wall thickening. This has progressed from the prior 09/26/2020 study. There is also fluid distention of the appendix suggesting a mucocele likely secondary to mass lesion obstructing the appendiceal orifice in this setting. Abdominal Wall: Diffuse cachexia Lymphovascular Structures: Vascular calcification within the aorta iliac system. I do not appreciate bulky adenopathy. Pelvic Viscera: Enlarged prostate. Unfortunately the balloon of the Pham catheter is inflated within the prostatic urethra and could be repositioned to better drain the bladder Osseus Structures: Multilevel degenerative changes in the spine without acute fracture or spondylolisthesis. I do not appreciate any obvious acute bony destructive lesions. Degenerative changes in the hips. CT/CT abdomen pelvis wo con IMPRESSION: Despite the significant limitations from the respiratory motion artifact on the study, there are several abnormalities of note. Pulmonary nodules are noted as well as a 3.5 cm mass lesion in the posterior aspect of the right lower lobe. These appear more prominent than on the prior studies were there is seen. Extensive emphysematous changes. Complex mass lesion in the cecum. The progressed from the 2019 study. There is also marked dilatation of the fluid-filled appendix suggesting an appendiceal mucocele likely secondary to obstruction in the region of the appendiceal orifice. There is peritoneal nodularity seen more so in the right mid to lower quadrant concerning for carcinomatosis in this setting. These peritoneal nodules were not seen on the 09/26/2020 CT scan. The Pham catheter balloon is is inflated within the prostatic urethra rather than within the bladder lumen and repositioning will likely help with better bladder drainage. This critical result was discussed with Dr Davey at 04/23/2021 8:42 PM and it was ascertained that the content and urgency of the report was understood at the time of direct communication. Critical Care Time Critical Care Time Critical Care Time: Yes Total Critical Care Time: 180 Attestation: I have personally provided critical care time exclusive of time spent on separately billable procedures. Time includes review of laboratory data, radiology results, discussion with consultants, and monitoring the potential decompensation. Interventions were performed as documented Discharge Plan Discharge Clinical Impression: Sepsis, Acute hypotension, Acute UTI, Encephalopathy acute, Cachexia, Metastatic cancer, EMILY (acute kidney injury) Patient Disposition: Admitted As Inpatient Prescriptions: No Action cholecalciferol (vitamin D3) 1,250 mcg (50,000 unit) capsule 1,250 mcg PO QWEEK 90 Days Qty: 13 RF: 0 folic acid 800 mcg tablet 0.8 mg PO DAILY Qty: 30 RF: 1 ferrous fumarate 325 mg (106 mg iron) tablet 325 mg PO DAILY Qty: 90 RF: 1 cyanocobalamin (vitamin B-12) 1,000 mcg/mL solution 1,000 mcg subcut Q4W 90 Days Qty: 4 RF: 1 finasteride [Proscar] 5 mg tablet 5 mg PO DAILY 90 Days Qty: 90 RF: 1 tamsulosin 0.4 mg capsule 0.4 mg PO BEDTIME 90 Days Qty: 90 RF: 1 amiodarone 200 mg tablet 200 mg PO DAILY Qty: 60 RF: 3
[2021-04-23 18:38] LABS: Basophils Percent Auto 0.1 % (0-2); Hemoglobin 13.5 g/dl (14.0-18.0); MANUAL DIFF FLAG SCAN; Mean Corpuscular Hemoglobin 28.9 pg (27.0-33.0); Monocytes Absolute Auto 1.6 X10*3/uL (0.1-1.2); Monocytes Percent Auto 4.6 % (2-11); Red Blood Count 4.67 X10*6/uL (4.60-5.80); Red Cell Distribution Width 15.2 % (11.0-16.0); SCAN SMEAR FLAG 1
[2021-04-23] MEDS: 0.9 % Sodium Chloride 1,000 ML 999 ML IVCONT ×2 (18:38)
[2021-04-23 18:40] LABS: Basophils Absolute Auto 0.1 X10*3/uL (0.0-0.2); Eosinophils Absolute Auto 0.1 X10*3/uL (0.0-0.4); Eosinophils Percent Auto 0.1 % (0-4); Hematocrit 41.4 % (42-52); Imm Gran Abs Auto 1.08 X10*3/uL (0.00-0.03); Imm Gran Pct Auto 3.1 % (0.0-0.4); Lymphocytes Absolute Auto 0.5 X10*3/uL (1.2-4.9); Lymphocytes Percent Auto 1.4 % (20-40); Mean Corpuscular HGB Conc 32.6 g/dl (31.0-36.0); Mean Corpuscular Volume 88.7 fL (80-98); Mean Platelet Volume 14.1 fL (9.4-12.4); Neutrophils Absolute Auto 31.5 X10*3/uL (2.0-8.3); Neutrophils Percent Auto 90.7 % (45-73); Platelet Count 262 X10*3/uL (160-400)
[2021-04-23 18:44] LABS: PLT ABN DIST 1; White Blood Count 34.8 X10*3/uL (4.8-10.8)
[2021-04-23 18:45] LABS: INTERNATIONAL NORM RATIO 1.2 (0.9-1.1)
[2021-04-23 18:52] LABS: Ammonia 28 umol/L (13-55)
[2021-04-23 18:55] LABS: Glucose Urine UA NEG (NEG); Leukocyte Esterase Urine 3+ (NEG); Nitrite Urine NEG (NEG); Specific Gravity - Urine 1.015 (1.005-1.025); UACC Culture Trigger YES; Urine Blood 1+ (NEG); Urine Ketones NEG (NEG); Urine Protein 1+ MG/DL (NEG-TRACE)
[2021-04-23 18:58] LABS: Appearance Urine TURBID; Color Urine YELLOW
[2021-04-23 18:59] LABS: SLIDE REVIEW VERIFIED
[2021-04-23 19:00] LABS: Bacteria Urine TRACE /LPF; Mucus Urine TRACE /LPF; Squamous Epithelial Cell Urine TRACE /LPF; WBC Urine TNTC /HPF (0-4)
[2021-04-23 19:01] LABS: Lactic Acid 3.6 mmol/L (0.5-2.0)
[2021-04-23] MEDS: levoFLOXacin/D5W 750 MG/150 ML PIGGYBACK 100 MG IV (19:06)
[2021-04-23 19:10] LABS: OBS Int Ctl Valid YES; OBS1 NEGATIVE (NEGATIVE)
[2021-04-23 19:22] LABS: Troponin-I High Sensitivity 27.2 ng/L (<3.5-35.0)
[2021-04-23 19:23] LABS: Lipase 13 U/L (8-78); Magnesium 2.2 mg/dL (1.6-2.6)
[2021-04-23 19:24] LABS: COVID-19 Test Negative (Negative)
--- NOTE | 2021-04-23 19:29 | PC.NURSE ---
pt to ct at this time.
[2021-04-23 19:37] LABS: TSH reflex Free T4 1.31 uIU/mL (0.32-4.0)
[2021-04-23 19:45] LABS: Blood Urea Nitrogen 92 mg/dL (9-16)
[2021-04-23 20:09] LABS: Alanine Aminotransferase 13 U/L (0-40); Albumin Level 3.4 g/dL (3.5-5.0); Alkaline Phosphatase 110 U/L (39-117); Anion Gap 27 (12-20); Aspartate Amino Transferase 17 U/L (5-37); Bilirubin Direct 0.3 mg/dL (0.0-0.5); Bilirubin Total 0.7 mg/dL (0.0-1.0); Calcium 9.2 mg/dL (8.4-10.2); Carbon Dioxide 14 mmol/L (22-29); Chloride 98 mmol/L (96-108); Creatinine Clr Calc Pharmacy 14.3; Estimated Glomerular Filt Rate 17; Glucose Random 142 mg/dL (60-115); Potassium 5.4 mmol/L (3.3-5.1); Sodium 134 mmol/L (135-145)
--- NOTE | 2021-04-23 20:30 | PC.NURSE ---
pt interfering with medical equipment and devices. soft restraints appiled. 3l ns hung per verbal order. pt unable to follow directions.
[2021-04-23 20:34] LABS: Reflex Lactate? Lactic Acid Added
--- NOTE | 2021-04-23 20:52 | PC.NURSE ---
Notified fo hypotention. pt placed in deep trandelenburg.
--- NOTE | 2021-04-23 20:53 | PC.NURSE ---
De Souza cath moved with md guidance. moderate resistance felt, de souza advanced approximately 2 inches.
--- NOTE | 2021-04-23 20:55 | PC.NURSE ---
see paper non behavioral restraint paperwork in chart.
[2021-04-23] MEDS: LORazepam 2 MG/ML VIAL IVPUSH (21:20)
[2021-04-23 21:50] LABS: ~Lactic Acid-LAB USE ONLY 2.6 mmol/L (0.5-2.0)
--- NOTE | 2021-04-23 22:08 | PC.NURSE ---
[facility] for pressure support with HR 130
[2021-04-23] MEDS: Sodium Bicarbonate 8.4% 50 MEQ/50 ML VIAL IVPUSH (22:40)
[2021-04-23] MEDS: Lactated Ringers 1,000 ML 50 ML IVCONT (22:44)
[2021-04-23 23:18] LABS: Reflex Lactate? 2 Y
--- NOTE | 2021-04-23 23:26 | PC.NURSE ---
Transport to ICU: bp 94/50
[2021-04-23 23:37] LABS: Cancel Lactic Acid Canceled
[2021-04-23 23:46] LABS: VBG HCO3 18 mmol/L (22-26); VBG pCO2 34 mmHg; VBG pH 7.32 (7.32-7.43); VBG pO2 35 mmHg
--- NOTE | 2021-04-23 23:50 | PC.NURSE ---
Late entry: pt was brought in by [facility] mane fd. for failure to thrive. upon undressing, extensive damage to his skin was noted. Pt had break down on buttocks in coccyx area, xyphoid process, and on bilateral extremities. Pt had chronic de souza in place upon arrival that was occluded by a small stick approximately 3inches long and with 4-5 rubber bands. Provider was immideately called to bedside to assess for ams/sepsis. IVs placed and wrapped. pt bilaterally weak and offered confused conversation, arrived to bedside- per patient has been failing in health since for awhile Per , family dog bit off connector part to de souza bag, so they had to stop. the leak. Appointment to remove de souza was on 04/22-but missed due to being unable to attend. De Souza placed. Output was purulent and foul smelling.
[2021-04-23 23:51] LABS: Basophils Percent Auto 0.1 % (0-2); Lymphocytes Percent Auto 1.1 % (20-40); MANUAL DIFF FLAG SCAN; SCAN SMEAR FLAG 1
[2021-04-23 23:53] LABS: Hemoglobin 10.4 g/dl (14.0-18.0); Imm Gran Abs Auto 1.16 X10*3/uL (0.00-0.03); Imm Gran Pct Auto 3.8 % (0.0-0.4); Lymphocytes Absolute Auto 0.3 X10*3/uL (1.2-4.9); Mean Corpuscular HGB Conc 32.5 g/dl (31.0-36.0); Mean Corpuscular Hemoglobin 29.1 pg (27.0-33.0); Mean Corpuscular Volume 89.6 fL (80-98); Mean Platelet Volume 13.7 fL (9.4-12.4); Monocytes Absolute Auto 1.2 X10*3/uL (0.1-1.2); Monocytes Percent Auto 3.9 % (2-11); Neutrophils Absolute Auto 27.8 X10*3/uL (2.0-8.3); Neutrophils Percent Auto 91.1 % (45-73); Platelet Count 206 X10*3/uL (160-400); Red Blood Count 3.57 X10*6/uL (4.60-5.80); Red Cell Distribution Width 15.1 % (11.0-16.0)
[2021-04-23 23:57] LABS: PLT ABN DIST 1
[2021-04-24] VITALS (9 sets, daily range): BP systolic 61–166; BP diastolic 40–102; PULSE 74–130; RESP 18–25; TEMP 36.3–36.7; O2SAT 90–95
[2021-04-24 00:02] LABS: White Blood Count 30.5 X10*3/uL (4.8-10.8)
--- NOTE | 2021-04-24 00:11 | P.HPCC_ITS ---
History of Present Illness Date of Service: 04/23/21 HPI: Patient with underlying history of Recurring UTIs, cachexia, metastatic colon cancer, coronary artery disease status post [place] and pacemaker implantation in July last year, ventricular arrhythmias, complete heart block, fully deficiency, B12 deficiency, vitamin-D deficiency, microcytic hypochromic anemia, unsteady gait, BPH with urinary retention. Patient presented to the emergency room by EMS from home, the patient has had failure to thrive for the past 3-5 days according to the he has had increased mental status changes but certainly worsened during past week. He has not been eating well, has been significantly tired, weak, producing scant, foul urine and having recurrent bowel movements while in bed. It is known that the patient had a CT scan of the abdomen back in September of last year which showed wall thickening of the cecum and a racing suspicion for underlying mass and the patient did not follow-up with this, has not had a colonoscopy. During the workup in the emergency room, the patient was noted to be significantly hypotensive, tachycardic, dry, his white count is 34.8; H&H of 13.5 and 41 respectively. Creatinine of 3.51 when his baseline 0.8. Lactic acid of 3.6, phosphorus of 5. Urinalysis positive with leukocyte esterase, hematuria, proteinuria, multiple white blood cells per high-power field. Occult blood negative. COVID negative. ROS: unable to obtain pt Past Medical History: As above Past Surgical History: Pacer placement Family history: Unknown Social History: Lives at home with his , uses a walker and a cane, does not have any history of tobacco or alcohol. For the past year, the patient has not been able to walk on his own, requires lots of assistance and is barely able to go to the bathroom. CODE STATUS: DNR DNI Allergies: Penicillin (anaphylaxis Home Medications: Please see med rec Sepsis exam done at 2300 VS: Blood pressure 84/67, heart rate 131, respirations 17, O2 sat 90% on room air. General: Alert to person only, follows basic commands. Cachexic, wasted. Skin: Multiple ecchymosis spots bilateral upper extremities, abrasions noted on the right and left elbow around the lateral epicondyle areas. Right hip pressure ulcer stage II about the size of a quarter, cocxygeal erythematous spot of approximately 4 x 4 cm in diameter without any breakdown of the skin. O nychomycosis of the bilateral toenails. HEENT: Head is normocephalic, atraumatic, pupils equal round reactive to light accommodation bilaterally. Extraocular movements appear intact. Buccal mucosa is dry. Neck is supple without lymphadenopathy. Cardiac: Tachycardic approximately 130 beats per minute, somewhat irregular. No murmurs, rubs or gallops, pacer device under the skin. Pulmonary: Clear to auscultation, no wheezes, rales or rhonchi. Abdomen: Sunken abdomen, abdomen without any fatty tissue. Soft, nontender. Musculoskeletal: Full range of motion of upper and lower extremities on his own at the major joints. No asymmetry of the legs. No edema. Gait not assessed. Neurologic: As above, otherwise nonfocal. Motor strength as above. Vascular: 2+ pulses upper and lower extremities distally. Less than 2nd capillary refill of that finger and toes. SIGNIFICANT LABORATORY DATA: As above REVIEW OF IMAGES: Chest x-ray IMPRESSION: 1. No gross lobar consolidation. 2. Interval increase in size of known lung lesions. 3. Right IJ catheter tip in superior vena cava. There is no pneumothorax. CT CHEST / ABDOMEN AND PELVIS IMPRESSION: Despite the significant limitations from the respiratory motion artifact on the study, there are several abnormalities of note. Pulmonary nodules are noted as well as a 3.5 cm mass lesion in the posterior aspect of the right lower lobe. These appear more prominent than on the prior studies were there is seen. Extensive emphysematous changes. Complex mass lesion in the cecum. The progressed from the 2019 study. There is also marked dilatation of the fluid-filled appendix suggesting an appendiceal mucocele likely secondary to obstruction in the region of the appendiceal orifice. There is peritoneal nodularity seen more so in the right mid to lower quadrant concerning for carcinomatosis in this setting. These peritoneal nodules were not seen on the 09/26/2020 CT scan. The Pham catheter balloon is is inflated within the prostatic urethra rather than within the bladder lumen and repositioning will likely help with better bladder drainage. This critical result was discussed with Dr Davey at 04/23/2021 8:42 PM and it was ascertained that the content and urgency of the report was understood at the time of direct communication. EKG REVIEW: Appears to be junctional rhythm 110 beats per minute with evidence of pacemaker. Left axis deviation, left bundle branch block no comparison available. No discernible ST elevations or depressions ASSESSMENT AND PLAN: 1. Acute sepsis due to UTI 2. Urinary tract infection 3. Chronic Microcytic anemia of chronic disease 4. Acute kidney injury 5. Hypophosphatemia 6. Chronic colonic mass likely cancer and metastatic disease 7. Severe malnutrition 8. Cachexia and wasting 9. Multiple abrasions and pressure ulcers as described on exam and present admission. Admit to ICU, vital signs, I's and O's, the patient is already on Vapressors, initially will plan to treat him with Cefepine given his allergy to penicillin although there is a chance of cross reactivity. Recheck labs and continue hydration. Very concerned about the patient's quality of life, poor prognosis and current treatment. I discussed the goals of care in detail with the patient's Mrs. Opal Gillespie who understands the patient is wasted, cachectic and has a variety of co-morbidities as well as an untreatable condition. She understands that at this point he is probably better off being comfortable rather than to continue to treat him aggressively. She does not want any additional procedures and is okay with withdrawing care. 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 Will Transfer patient to regular room, case discussed with Dr. Khan. Critical care time used for critical evaluation of this patient, diagnosis, treatment and coordination of care, review her records and documentation TOTAL CRITICAL CARE TIME 90 MIN . Patient's care was discussed in detail with Dr. Nails. He is aware of all the above as well as the plan of care for this patient. [facility] Past Medical History Medical History Abnormal weight loss Folate deficiency History of complete heart block Microcytic hypochromic anemia Vitamin B12 deficiency anemia Vitamin D deficiency Family History Family History Other No significant family history Surgical History Surgical History History of permanent cardiac pacemaker placement Social History Social History Household Members: Spouse Housing: House Do you presently have visiting nurse or other home services: No Unable to assess alcohol history related to: Unable to respond and Unknown Alcohol intake: unknown Patient Tobacco Use Status: Tobacco use Unknown Second Hand Smoke Exposure: No Use of substances other than those prescribed or required for medical reasons: Unknown Currently Displaying Signs/Symptoms of Drug Intoxication Withdrawal: No Spiritual Healthcare Practices: UNKNOWN Moravian Healthcare Practices: UNKNOWN Cultural Healthcare Practices: UNKNOWN Advance Directives: No Advance Directives Information Provided: Yes Do you have thoughts of harming others: None Do you have a plan to hurt others: No Plan Recently lost weight without trying: Yes How much weight loss: Unsure Poor oral hygiene: Yes service: Yes Current occupational status: retired Meds Allergies Allergy/AdvReac Type Severity Reaction Status Date / Time Penicillins Allergy Anaphylaxis Verified 03/24/21 14:58 Active Medications: Current Medications Generic Name Dose Route Start Last Admin Trade Name Freq PRN Reason Stop Dose Admin Heparin Sodium (Porcine) 5,000 unit 04/23/21 23:00 Heparin Sodium,Porcine 5,000 Unit/Ml Vial SUBCUT Q8H ABIOLA Norepinephrine Bitartrate 8 mg in 250 mls @ 0 mls/hr 04/23/21 21:30 04/23/21 23:00 Levophed IVCONT 0.09 mcg/kg/min .Q0M ABIOLA 10.06 mls/hr Titration Protocol Per Protocol Lactated Ringer's 1,000 mls @ 50 mls/hr 04/23/21 22:30 04/23/21 22:44 Lr IVCONT 50 mls/hr .Q20H ABIOLA Administration Physical Exam Vital Signs: Vital Signs: Last Vital Signs Temp 97.9 F 04/23/21 23:00 Pulse 131 H 04/23/21 23:26 Resp 20 04/23/21 23:13 BP 94/50 L 04/23/21 23:26 Pulse Ox 92 04/23/21 23:13 Body Mass Index 17.8 Results Labs CBC and Chem 7: 04/23/21 23:40 04/23/21 23:40 Labs: Laboratory Results - last 24 hr 04/23/21 04/23/21 04/23/21 18:30 18:30 18:30 MCV MCH MCHC RDW Plt Count MPV Immature Gran % (Auto) Neut % (Auto) Lymph % (Auto) [place] % (Auto) Eos % (Auto) Baso % (Auto) Lymph # (Auto) [place] # (Auto) Eos # (Auto) Baso # (Auto) Abs Immat Gran (auto) Absolute Neuts (auto) Absolute Nucleated RBC Nucleated RBC % (auto) Smear Tech's Comments PT 14.0 H INR 1.2 H VBG pH VBG pCO2 VBG pO2 VBG HCO3 VBG O2 Saturation VBG Base Excess Anion Gap Estim Creat Clear Calc Estimated GFR Random Glucose Lactic Acid 3.6 H* Lactic Acid Fup @ 2Hr Calcium Magnesium 2.2 Total Bilirubin Direct Bilirubin AST ALT Alkaline Phosphatase Ammonia Troponin I High Sens Total Protein Albumin Lipase 13 TSH 1.31 Urine Color Urine Appearance Urine pH Ur Specific [place] Urine Protein Urine Glucose (UA) Urine Ketones Urine Blood Urine Nitrite Ur Leukocyte Esterase Urine RBC Urine WBC Ur Squamous Epith Cells Urine Bacteria Urine Mucus Stool Occult Blood COVID-19 (HERBERT) SubtextIDSnoox Blood Type Antibody Screen 04/23/21 04/23/21 04/23/21 18:30 18:30 18:31 MCV 88.7 MCH 28.9 MCHC 32.6 RDW 15.2 Plt Count 262 D MPV 14.1 H Immature Gran % (Auto) 3.1 H Neut % (Auto) 90.7 H Lymph % (Auto) 1.4 L [place] % (Auto) 4.6 Eos % (Auto) 0.1 Baso % (Auto) 0.1 Lymph # (Auto) 0.5 L [place] # (Auto) 1.6 H Eos # (Auto) 0.1 Baso # (Auto) 0.1 Abs Immat Gran (auto) 1.08 H Absolute Neuts (auto) 31.5 H Absolute Nucleated RBC 0.000 Nucleated RBC % (auto) 0.0 Smear Tech's Comments VERIFIED PT INR VBG pH VBG pCO2 VBG pO2 VBG HCO3 VBG O2 Saturation VBG Base Excess Anion Gap Estim Creat Clear Calc Estimated GFR Random Glucose Lactic Acid Lactic Acid Fup @ 2Hr Calcium Magnesium Total Bilirubin Direct Bilirubin AST ALT Alkaline Phosphatase Ammonia 28 Troponin I High Sens 27.2 Total Protein Albumin Lipase TSH Urine Color Urine Appearance Urine pH Ur Specific [place] Urine Protein Urine Glucose (UA) Urine Ketones Urine Blood Urine Nitrite Ur Leukocyte Esterase Urine RBC Urine WBC Ur Squamous Epith Cells Urine Bacteria Urine Mucus Stool Occult Blood COVID-19 (HERBERT) COVIDSnoox Blood Type Antibody Screen 04/23/21 04/23/21 04/23/21 18:31 18:48 18:52 MCV MCH MCHC RDW Plt Count MPV Immature Gran % (Auto) Neut % (Auto) Lymph % (Auto) [place] % (Auto) Eos % (Auto) Baso % (Auto) Lymph # (Auto) [place] # (Auto) Eos # (Auto) Baso # (Auto) Abs Immat Gran (auto) Absolute Neuts (auto) Absolute Nucleated RBC Nucleated RBC % (auto) Smear Tech's Comments PT INR VBG pH VBG pCO2 VBG pO2 VBG HCO3 VBG O2 Saturation VBG Base Excess Anion Gap Estim Creat Clear Calc Estimated GFR Random Glucose Lactic Acid Lactic Acid Fup @ 2Hr Calcium Magnesium Total Bilirubin Direct Bilirubin AST ALT Alkaline Phosphatase Ammonia Troponin I High Sens Total Protein Albumin Lipase TSH Urine Color YELLOW Urine Appearance TURBID Urine pH 6.0 Ur Specific [place] 1.015 Urine Protein 1+ H Urine Glucose (UA) NEG Urine Ketones NEG Urine Blood 1+ H Urine Nitrite NEG Ur Leukocyte Esterase 3+ H Urine RBC 1-4 Urine WBC TNTC H Ur Squamous Epith Cells TRACE Urine Bacteria TRACE Urine Mucus TRACE Stool Occult Blood COVID-19 (HERBERT) Negative COVID-19 Clin Com See Note Blood Type O Positive Antibody Screen NEGATIVE 04/23/21 04/23/21 04/23/21 18:52 19:20 21:16 MCV MCH MCHC RDW Plt Count MPV Immature Gran % (Auto) Neut % (Auto) Lymph % (Auto) [place] % (Auto) Eos % (Auto) Baso % (Auto) Lymph # (Auto) [place] # (Auto) Eos # (Auto) Baso # (Auto) Abs Immat Gran (auto) Absolute Neuts (auto) Absolute Nucleated RBC Nucleated RBC % (auto) Smear Tech's Comments PT INR VBG pH VBG pCO2 VBG pO2 VBG HCO3 VBG O2 Saturation VBG Base Excess Anion Gap 27 H Estim Creat Clear Calc 14.3 Estimated GFR 17 Random Glucose 142 H D Lactic Acid Lactic Acid Fup @ 2Hr 2.6 H* Calcium 9.2 Magnesium Total Bilirubin 0.7 Direct Bilirubin 0.3 AST 17 D ALT 13 Alkaline Phosphatase 110 D Ammonia Troponin I High Sens Total Protein 7.0 Albumin 3.4 L Lipase TSH Urine Color Urine Appearance Urine pH Ur Specific [place] Urine Protein Urine Glucose (UA) Urine Ketones Urine Blood Urine Nitrite Ur Leukocyte Esterase Urine RBC Urine WBC Ur Squamous Epith Cells Urine Bacteria Urine Mucus Stool Occult Blood NEGATIVE COVID-19 (HERBERT) COVID-19 SIPX Com Blood Type Antibody Screen 04/23/21 04/23/21 23:39 23:40 MCV 89.6 MCH 29.1 MCHC 32.5 RDW 15.1 Plt Count 206 MPV 13.7 H Immature Gran % (Auto) 3.8 H Neut % (Auto) 91.1 H Lymph % (Auto) 1.1 L [place] % (Auto) 3.9 Eos % (Auto) 0.0 Baso % (Auto) 0.1 Lymph # (Auto) 0.3 L [place] # (Auto) 1.2 Eos # (Auto) 0.0 Baso # (Auto) 0.0 Abs Immat Gran (auto) 1.16 H Absolute Neuts (auto) 27.8 H Absolute Nucleated RBC 0.000 Nucleated RBC % (auto) 0.0 Smear Tech's Comments PT INR VBG pH 7.32 VBG pCO2 34 VBG pO2 35 VBG HCO3 18 L VBG O2 Saturation 48.0 VBG Base Excess -7.0 Anion Gap Estim Creat Clear Calc Estimated GFR Random Glucose Lactic Acid Lactic Acid Fup @ 2Hr Calcium Magnesium Total Bilirubin Direct Bilirubin AST ALT Alkaline Phosphatase Ammonia Troponin I High Sens Total Protein Albumin Lipase TSH Urine Color Urine Appearance Urine pH Ur Specific [place] Urine Protein Urine Glucose (UA) Urine Ketones Urine Blood Urine Nitrite Ur Leukocyte Esterase Urine RBC Urine WBC Ur Squamous Epith Cells Urine Bacteria Urine Mucus Stool Occult Blood COVID-19 (HERBERT) COVID-19 Clin Com Blood Type Antibody Screen Imaging Radiologist's Impressions: Impressions Chest X-Ray 04/23/21 18:21 IMPRESSION: 1. No gross lobar consolidation. 2. Interval increase in size of known lung lesions. Abdomen/Pelvis CT 04/23/21 19:16 IMPRESSION: Despite the significant limitations from the respiratory motion artifact on the study, there are several abnormalities of note. Pulmonary nodules are noted as well as a 3.5 cm mass lesion in the posterior aspect of the right lower lobe. These appear more prominent than on the prior studies were there is seen. Extensive emphysematous changes. Complex mass lesion in the cecum. The progressed from the 2020 study. There is also marked dilatation of the fluid-filled appendix suggesting an appendiceal mucocele likely secondary to obstruction in the region of the appendiceal orifice. There is peritoneal nodularity seen more so in the right mid to lower quadrant concerning for carcinomatosis in this setting. These peritoneal nodules were not seen on the 09/26/2020 CT scan. The Pham catheter balloon is is inflated within the prostatic urethra rather than within the bladder lumen and repositioning will likely help with better bladder drainage. This critical result was discussed with Dr Davey at 04/23/2021 8:42 PM and it was ascertained that the content and urgency of the report was understood at the time of direct communication. Chest CT 04/23/21 19:16 IMPRESSION: Despite the significant limitations from the respiratory motion artifact on the study, there are several abnormalities of note. Pulmonary nodules are noted as well as a 3.5 cm mass lesion in the posterior aspect of the right lower lobe. These appear more prominent than on the prior studies were there is seen. Extensive emphysematous changes. Complex mass lesion in the cecum. The progressed from the 2019 study. There is also marked dilatation of the fluid-filled appendix suggesting an appendiceal mucocele likely secondary to obstruction in the region of the appendiceal orifice. There is peritoneal nodularity seen more so in the right mid to lower quadrant concerning for carcinomatosis in this setting. These peritoneal nodules were not seen on the 09/26/2020 CT scan. The Pham catheter balloon is is inflated within the prostatic urethra rather than within the bladder lumen and repositioning will likely help with better bladder drainage. This critical result was discussed with Dr Davey at 04/23/2021 8:42 PM and it was ascertained that the content and urgency of the report was understood at the time of direct communication. Chest X-Ray 04/23/21 21:46 IMPRESSION: Right IJ catheter tip in superior vena cava. There is no pneumothorax.
[2021-04-24 00:17] LABS: Anion Gap 17 (12-20); Blood Urea Nitrogen 85 mg/dL (9-16); Calcium 7.6 mg/dL (8.4-10.2); Carbon Dioxide 18 mmol/L (22-29); Chloride 107 mmol/L (96-108); Creatinine Clr Calc Pharmacy 17.5; Estimated Glomerular Filt Rate 21; Glucose Random 134 mg/dL (60-115); Potassium 4.5 mmol/L (3.3-5.1); Sodium 137 mmol/L (135-145)
[2021-04-24 00:27] LABS: Venous Blood Gas Refer to POC result
[2021-04-24] MEDS: HYDROmorphone HCl 1 MG/ML SYRINGE IVPUSH ×5 (01:14→22:53)
--- NOTE | 2021-04-24 01:24 | PC.NURSE ---
PT TO ICU AT 0005 FROM ER. PT MOANING, RESPONSIVE TO NAME, DOES NOT FOLLOW COMMANDS, DOES NOT ATTEMPT TO SPEAK. EYES OPEN, NO TRACKING BUT WILL TURN HIS HEAD IN THE DIRECTION HIS NAME IS CALLED. TRASFERRED FROM STRETCHER TO BED. PT IS CACHECTIC, 54KG. MULTIPLE SKIN ISSUES WITH PROTRUDING HIP BONES, SPINE AND XYPHOID PROCESS. PICTURES OF WOUNDS ON COCCYX, RIGHT HIP, AND RIGHT ELBOW. RASH NOT IN GROIN AREA. MCMILLAN WITH THICK, MURKY, FOUL SMELLING URINE. F/C EMPTIED FOR 900 ML. CORE TEMP 97.7. NO RESP DISTRESS. O2 SAT 93% ON ROOM AIR. PT RESTLESS WITH CARE AND PULLING ON IV'S/LINES. WRISTS RESTRAINTS ON TO PREVENT PT FROM PULLING OUT TLC. LEVOPHED DRIP AT 0.9 MCG/KG/MIN. LR AT 50 ML/HR. MARIANELA BENITEZ PA IN TO SEE PT AND THEN CALLED AND SPOKE TO PT'S . THIS RN WAS WITNESS TO CALL AND DECIDED TO MAKE PT COMFORT MEASURES ONLY. PT WAS GIVEN DILAUDID 1 MG IV AND LEVO DRIP SHUT OFF. LR SHUT OFF.
--- NOTE | 2021-04-24 04:54 | PC.NURSE ---
PT RESTING. NOT MOANING. NO RESP DISTRESS. O2 SAT LOW 90'S. HEART RATE 90'S, REGULAR. PT TURNED AND REPOS.
--- NOTE | 2021-04-24 06:20 | PC.NURSE ---
Pt minimally responsive. Having periods of apnea. Repositioned. No resp difficulty. No restlessness.
--- NOTE | 2021-04-24 09:13 | MHC.CM.PN ---
CM met with Patient briefly at bedside and per 's request, left IMM at bedside for Patient/'s review (copy also placed on chart). Patient has been living in an apartment with his /HCP/[place]. Patient's Nephew/Gordon and his have been his Caregivers. 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 Wendy Mcfarland. CM has left a vm for Nephew/Gordon @ [phone], requesting a copy of the HCP.
--- NOTE | 2021-04-24 10:37 | PM.EVENT ---
Event Note Date of Service: 04/24/21 Event Note: Day team Note S Seen and examined. Unresopnsive but comfortable O comfortable no distress no response to verbal or tactile stimuli A/P 80 yo M admitted to ICU for septic shock secondary to UTI. Goals of care discussion by ICU team held with family over night and decision made for comfort measure only. Continue comfort care
--- NOTE | 2021-04-24 13:02 | MHC.CLN ---
PT IS CURRENTLY EMERGENCY VEHICLE DRIVER PRIMARY GOAL IS COMFORT PT IS SEVERELY MALNOURISHED DIET CHANGED TO FEED FROM FLOOR WILL FOLLOW WITH CARE TEAM AND PROVIDE SUPPORT NEEDED NO NUTRITION ASSESSMENT WARRANTED AT THIS TIME
[2021-04-25] MEDS: HYDROmorphone HCl 1 MG/ML SYRINGE IVPUSH ×4 (06:06→22:13)
[2021-04-25 07:20] VITALS: RESP 17
[2021-04-25 07:21] VITALS: RESP 17
--- NOTE | 2021-04-25 11:43 | PM.EVENT ---
Event Note Date of Service: 04/25/21 Event Note: Daily Progress Note S Appears more awake today compared to yesterday. Reportedly said a few words earlier O appears comfortable responds to verbal stimuli today A/P 81 yo M with likely metastatic colon Ca admitted to ICU for septic shock. Made ASSEMBLER MOTOR VEHICLE and transferred out of the unit. Yesterday it appeared that the patient may succumb to his illness in a matter of hours to days, but he appears to holding steady today. He is more alert, although not responding verbally. Continue comfor care. CM to d/w family re: disposition
--- NOTE | 2021-04-25 11:49 | MHC.CM.PN ---
Addendum entered by Raquel Diaz 04/25/21 14:18: AFTER MAKING SEVERAL REFERRALS, ONLY [facility] IS CONSIDERING PT AND THEY REPORT THEY WILL NEED A COMPLETED [place] APPLICATION AND ADMISSION APPLICATION. REFERRAL SENT TO [facility]. Addendum entered by Raquel Diaz 04/25/21 13:29: CM SPOKE TO PTS AGAIN WHO REPORTED AFTER SPEAKING TO HOSPICE NURSE, SHE DOES NOT FEEL SHE CAN CARE FOR THE PT AT HOME. SHE REPORTS SHE DOES NOT HAVE ANY MONEY TO PAY FOR ROOM AND BOARD FOR PT TO GO TO A SNF ON HOSPICE EITHER. ANTHONY INFORMED HER THE PTS BENEFIT DOES NOT COVER ROOM AND BOARD IN A FACILITY AND MEDICARE WOULD ONLY COVER HOSPICE LEAVING ROOM AND BOARD TO BE PAID BY FAMILY. MILI REPORTS SHE DOES NOT HAVE ENOUGH MONEY TO PAY R&B AT A FACILITY IT IS AROUND $400/DAY AND MOST FACILITIES REQUIRE TWO WEEKS TO ONE MONTH UP FRONT. MILI REPORTS SHE WOULD RATHER HAVE THE PT EVALUATED FOR STR SHE FEELS HE NEEDS A NURSING FACILITY. Original Note: ANTHONY CALLED PTS , MILI ([phone]) TO DISCUSS DC PLANNING. SHE IS AWARE PT IS LOOKING MORE ALERT TODAY AND WILL LIKELY DISCHARGE SOON. ANTHONY INFORMED HER [facility] WAS NOT OFFER[facility] BED BUT REFERRALS COULD BE MADE TO OTHER [place] AFFILIATED SNFS. MILI REPORTS SHE WOULD PREFER TO HAVE THE PT HOME. ANTHONY SUGGESTED SHE SPEAK WITH A HOSPICE NURSE REGARDING WHAT SERVICES THEY COULD OFFER. MILI ALSO REPORTS HAVING SUFFICIENT SUPPORT IN THE HOME TO HELP CARE FOR THE PT. SHE REPORTS THE PTS NEPHEW WHO IS A DIRECTOR GEOTHERM[employer] OPERATIONS AND NIECE WHO IS IN THE HEALTHCARE FIELD, PROVIDE MOST OF PTS CARE AT HOME AND SHE ALSO HAS OTHER FAMILY MEMBERS IN TOWN FROM [place] WHO WILL BE THERE TO HELP. A REFERRAL WAS MADE TO [facility] CURRENT DC PLAN IS HOME WITH HOSPICE SERVICES VIA S
[2021-04-25 13:55] VITALS: BMI 17.8
[2021-04-25 16:00] VITALS: RESP 18
[2021-04-25] MEDS: Scopolamine 1.5 MG PATCH.TD.3 EAR-BEHIND (16:32)
--- NOTE | 2021-04-25 20:27 | PC.NURSE ---
pt continuing to have agonal breathing, given 1mg dilauded prn at 2027, and repositioned. Will continue to reassess health status.
[2021-04-25 23:34] VITALS: RESP 12
[2021-04-26] VITALS (8 sets, daily range): RESP 9–22
[2021-04-26] MEDS: HYDROmorphone HCl 1 MG/ML SYRINGE IVPUSH ×10 (00:12→23:04)
--- NOTE | 2021-04-26 11:20 | P.EN_ITS ---
Event Note Date of Service: 04/26/21 Event Note: Event Note: Daily Progress Note S Back to being somnolent, not arousable to verbal stimuli. O appears comfortable Not responding to verbal stimuli A/P 81 yo M with likely metastatic colon Ca admitted to ICU for septic shock. Made CROP GRAIN OR LIVESTOCK FARMER and transferred out of the unit. Yesterday more alert, but today not arousable Continue comfort care. Attending Dr. Pittman
[2021-04-27] MEDS: HYDROmorphone HCl 1 MG/ML SYRINGE IVPUSH ×2 (01:02→02:36)
--- NOTE | 2021-04-27 03:56 | PC.NURSE ---
Patient at approximately 0320, notified to confirm . Pronounced at 0326 on 04/27/21. patient had been resting comfortably until this point in time. Family notified by this RN, did not want to view body prior to transfer to [facility]. [facility] notified at 0340, spoke to Zaina. They declined organ donation due to metastatic colon cancer. Post mortem care has been done. Pham removed, instructed to leave triple lumen in neck.
--- NOTE | 2021-04-27 09:51 | PM.DDS ---
Discharge Sum: Prov Provider Primary care physician: Wendy Moran MD Discharge Sum: Diag PCOD Cause of : Sepsis due to urinary tract infection Discharge Sum: Summary Date and Time Date of admission: 04/23/21 22:43 Date of : 04/27/21 Time of : 03:26 Summary Details: Patient with underlying history of Recurring UTIs, cachexia, metastatic colon cancer, coronary artery disease status post NM and pacemaker implantation in July last year, ventricular arrhythmias, complete heart block, fully deficiency, B12 deficiency, vitamin-D deficiency, microcytic hypochromic anemia, unsteady gait, BPH with urinary retention. Patient presented to the emergency room by EMS from home, the patient has had failure to thrive for the past 3-5 days according to the he has had increased mental status changes but certainly worsened during past week. He has not been eating well, has been significantly tired, weak, producing scant, foul urine and having recurrent bowel movements while in bed. It is known that the patient had a CT scan of the abdomen back in September of last year which showed wall thickening of the cecum and a racing suspicion for underlying mass and the patient did not follow-up with this, has not had a colonoscopy. During the workup in the emergency room, the patient was noted to be significantly hypotensive, tachycardic, dry, his white count is 34.8; H&H of 13.5 and 41 respectively. Creatinine of 3.51 when his baseline 0.8. Lactic acid of 3.6, phosphorus of 5. Urinalysis positive with leukocyte esterase, hematuria, proteinuria, multiple white blood cells per high-power field. Occult blood negative. COVID negative. Hospital course: Patient was admitted to ICU with septic shock, metabolic encephalopathy, underlying severe malnutrition with cachexia, EMILY due to ATN, Hyperkalemia, and ultimately had E. coli bacteremia and marked leukocytosis. His prognosis was rather poor. He was made comfort care in ICU and transfer to medical surgical floor ultimately worsening and drifting into coma. He today 04/27/21 at 3.26 AM Final diagnosis: Septic shock EMILY due to ATN Hyperkalemia Ecoli bacteremia Toxic Metabolic encephalopathy Severe protein caloary malnutrition Secondary diagnosis: Metastatic colon cancer CAD Recurrent UTI h/o complete heart block, BPH chronic anemia, vit D deficiency Additional Data Attending physician: Ubaldo Pittman MD
== END 2021-04-27 04:00 | disposition expired | DRG 871 ==
LOC: HO.ED 22:53 → HO.ICU 22:55 → HO.IMC 04-24 02:39
PROVIDERS: Anesthesiology; Admitting Provider Physician Assistant Medical; Emergency Provider Emergency Medicine; PCP Internal Medicine; Visit Provider Internal Medicine
DX: A41.51 Sepsis due to Escherichia coli [E. coli] (principal); E43 Unspecified severe protein-calorie malnutrition; R65.21 Severe sepsis with septic shock; N17.0 Acute kidney failure with tubular necrosis; G92 Toxic encephalopathy; N39.0 Urinary tract infection, site not specified; Z68.1 Body mass index [BMI] 19.9 or less, adult; C18.0 Malignant neoplasm of cecum; Z95.0 Presence of cardiac pacemaker; I25.2 Old myocardial infarction; E87.5 Hyperkalemia; D63.8 Anemia in other chronic diseases classified elsewhere; L89.152 Pressure ulcer of sacral region, stage 2; Z87.440 Personal history of urinary (tract) infections; Z20.822 Contact with and (suspected) exposure to COVID-19; Z88.0 Allergy status to penicillin; Z79.899 Other long term (current) drug therapy; Z66 Do not resuscitate; Z51.5 Encounter for palliative care
CPT/HCPCS: 36415; 71045; 71250; 74176; 80048; 80076; 81001; 81003; 82140; 82272; 83605; 83690; 83735; 84100; 84443; 84484; 85025; 85610; 86850; 86900; 86901; 87040; 87077; 87086; 87088; 87186; 87205; 87635; 93005; 99285; J1170; J1956; J2060